=== PATIENT | female | born 1975 | race Caucasian/White ===

== ENCOUNTER 2020-01-24 19:56 | Emergency (ER) | payer MEDICARE, MEDICAID, SELFPAY ==
[2020-01-24 20:51] VITALS: BP 143/83; PULSE 76; RESP 16; TEMP 36.8; O2SAT 98; BMI 28.3
--- NOTE | 2020-01-24 21:36 | PC.NURSE ---
Pt ambulating from the waiting room into room 13. IV established, labs obtained and sent. Pt unable to provide UA at this time. Call mckeon within reach, continue to monitor. Awaiting primary MD sanchez.
[2020-01-24 21:42] LABS: MANUAL DIFF FLAG NO
[2020-01-24 21:48] LABS: Basophils Absolute Auto 0.1 X10*3/uL (0.0-0.2); Basophils Percent Auto 0.7 % (0-2); Eosinophils Absolute Auto 0.2 X10*3/uL (0.0-0.4); Hematocrit 41.1 % (37-47); Imm Gran Abs Auto 0.02 X10*3/uL (0.00-0.03); Imm Gran Pct Auto 0.2 % (0.0-0.4); Lymphocytes Absolute Auto 2.6 X10*3/uL (1.2-4.9); Lymphocytes Percent Auto 30.1 % (20-40); Mean Corpuscular HGB Conc 34.1 g/dl (31.0-35.0); Mean Corpuscular Volume 96.9 fL (80-98); Mean Platelet Volume 11.3 fL (9.4-12.3); Monocytes Absolute Auto 0.6 X10*3/uL (0.1-1.2); Monocytes Percent Auto 6.5 % (2-11); Neutrophils Absolute Auto 5.2 X10*3/uL (2.0-8.3); Neutrophils Percent Auto 60.5 % (45-73); Platelet Count 256 X10*3/uL (160-400); Red Blood Count 4.24 X10*6/uL (4.20-5.50); Red Cell Distribution Width 13.1 % (11.0-16.0); White Blood Count 8.7 X10*3/uL (4.8-10.8)
[2020-01-24 22:00] VITALS: BP 148/89; PULSE 70; RESP 15; O2SAT 98
[2020-01-24 22:12] LABS: Alanine Aminotransferase 14 U/L (0-31); Albumin Level 4.7 g/dL (3.5-5.0); Alkaline Phosphatase 80 U/L (39-117); Anion Gap 14 (12-20); Aspartate Amino Transferase 21 U/L (5-31); Blood Urea Nitrogen 11 mg/dL (9-16); Calcium 9.2 mg/dL (8.4-10.2); Carbon Dioxide 22 mmol/L (22-29); Chloride 105 mmol/L (96-108); Creatinine Clr Calc Pharmacy 60.6; Estimated Glomerular Filt Rate 54; Glucose Random 85 mg/dL (60-115); Lipase 35 U/L (8-78); Potassium 3.9 mmol/l (3.3-5.1); Sodium 137 mmol/L (135-145); Total Protein 7.9 g/dL (6.5-8.0)
--- NOTE | 2020-01-24 22:41 | ED.FEMALEGU ---
HPI - Female Genitourinary General Chief complaint: Urogenital-Female Stated complaint: flank pain Time Seen by Provider: 01/24/20 22:36 Source: patient Mode of arrival: ambulatory Limitations: no limitations History of Present Illness HPI Narrative: patient with chronic back pain and history of kidney stones comes here for pain in the right flank area since yesterday getting worse today with nausea patient feels his pain is slightly different than in the past radiating to her right hip similar to in the past when she had kidney stone, also noticed dark urine without any julian hematuria MD elicited complaint: dysuria Onset (ago): day(s) (1) Quality of pain: sharp Consistency: constant Vaginal discharge: none Urinary symptoms: Dysuria and Urgency Related Data Previous Rx's Medication Instructions Recorded cyclobenzaprine 10 mg PO Q8H #20 tab 01/25/20 diclofenac sodium 50 mg PO Q12H PRN #20 tab 01/25/20 Allergies Allergy/AdvReac Type Severity Reaction Status Date / Time acetaminophen [ACETAMINOPHEN] Allergy Unknown ITCHY Verified 01/24/20 20:50 aspirin [From PERCODAN] Allergy Unknown RASH Verified 01/24/20 20:50 ceftriaxone [CEFTRIAXONE] Allergy Unknown RASH Verified 01/24/20 20:50 Cephalosporins Allergy Unknown HIVES Verified 01/24/20 20:50 [CEPHALOSPORINS] fentanyl [FENTANYL] Allergy Unknown ANAPHYLAXIS Verified 01/24/20 20:50 hydromorphone [From DILAUDID] Allergy Unknown HIVES Verified 01/24/20 20:50 lorazepam [From ATIVAN] Allergy Unknown HEADAHCE Verified 01/24/20 20:50 morphine [MORPHINE] Allergy Unknown HIVES Verified 01/24/20 20:50 oxycodone [OXYCODONE] Allergy Unknown ITCHY Verified 01/24/20 20:50 penicillin G Allergy Unknown Itching Verified 01/24/20 20:50 Penicillins [PENICILLINS] Allergy Unknown SHORTNESS Verified 01/24/20 20:50 OF BREATH Percodan Allergy Unknown Itching Verified 01/24/20 20:50 prednisolone Allergy Unknown Itching Verified 01/24/20 20:50 prednisone [PREDNISONE] Allergy Unknown ANAPHYLAXIS Verified 01/24/20 20:50 Rocephin Allergy Unknown Itching Verified 01/24/20 20:50 cephalosporins Allergy Unknown Itching Uncoded 01/24/20 20:50 Review of Systems Review of Systems: REVIEW OF SYSTEMS: Pertinent positives and negatives are stated above in the history. GEN: no fevers, chills, fatigue HEENT: no nasal congestion, sore throat, ear pain NEURO: no headache, dizziness, focal weakness PULM: no cough, shortness of breath CV: no chest pain, palpitations, LE edema ABD: no abdominal pain, vomiting, diarrhea : no dysuria, urgency, frequency SKIN: no rash ROS otherwise negative x 10 [facility] Past Medical History Medical History Asthma Chronic fatigue Kidney stone Lupus Osteopenia Ovarian cyst Social History Social History Advance Directives: No Advance Directives Information Provided: No Physical Exam Vital Signs: Vital Signs: Last Vital Signs Temp 98.3 F 01/24/20 20:51 Pulse 70 01/24/20 22:00 Resp 15 01/24/20 22:00 BP 148/89 H 01/24/20 22:00 Pulse Ox 98 01/24/20 22:00 Body Mass Index 28.3 Appearance: Alert. Oriented X3. in moderate distress. Eyes: Pupils equal, round and reactive to light. ENT: Pharynx normal. Neck: Normal inspection. Neck supple. CVS: Normal heart rate and rhythm. Pulses normal. Respiratory: No respiratory distress. Breath sounds normal. Abdomen: Soft and nontender. right flank tenderness + no focal spinal tenderness Skin: Skin warm and dry. Normal skin color. Normal skin turgor. Extremities: No lower extremity edema. Good range of movement straight leg raising test negative bilateral Neuro: Oriented X 3. No motor deficit. No sensory deficit. Course Course Course Narrative: patient with chronic back pain been here multiple times in the past complaining of similar pain urine is negative for any hematuria or UTI labs are stable patient been sleeping since she came to the ER still complaining of pain will discharge her home on pain management. Patient requesting CT scan of the abdomen which came back to be negative for any obstructive nephropathy. Will discharge her home MDM - Female Genitourinary MDM Narrative Medical decision making narrative: nephrolithiasis, chronic back pain Differential Diagnosis Differential diagnosis: Likely urinary tract infection Medical Records Attestation: I reviewed the patient's medical records. Lab Data Attestation: I reviewed the patient's lab results. Result diagrams: 01/24/20 21:35 01/24/20 21:35 Labs: Lab Results 01/24/20 01/24/20 01/24/20 Range/Units 21:35 21:35 21:35 WBC 8.7 (4.8-10.8) X10*3/uL RBC 4.24 (4.20-5.50) X10*6/uL Hgb 14.0 (12.0-16.0) g/dl Hct 41.1 (37-47) % MCV 96.9 (80-98) fL MCH 33.0 (27.0-33.0) pg MCHC 34.1 (31.0-35.0) g/dl RDW 13.1 (11.0-16.0) % Plt Count 256 (160-400) X10*3/uL MPV 11.3 (9.4-12.3) fL Immature Gran % (Auto) 0.2 (0.0-0.4) % Neut % (Auto) 60.5 (45-73) % Lymph % (Auto) 30.1 (20-40) % [place] % (Auto) 6.5 (2-11) % Eos % (Auto) 2.0 (0-4) % Baso % (Auto) 0.7 (0-2) % Lymph # (Auto) 2.6 (1.2-4.9) X10*3/uL [place] # (Auto) 0.6 (0.1-1.2) X10*3/uL Eos # (Auto) 0.2 (0.0-0.4) X10*3/uL Baso # (Auto) 0.1 (0.0-0.2) X10*3/uL Abs Immat Gran (auto) 0.02 (0.00-0.03) X10*3/uL Absolute Neuts (auto) 5.2 (2.0-8.3) X10*3/uL Absolute Nucleated RBC 0.000 (0.0-0.012) X10*3/uL Nucleated RBC % (auto) 0.0 (0.0-0.2) /100WBC Hold Blue Top SEE NOTE Sodium 137 (135-145) mmol/L Potassium 3.9 (3.3-5.1) mmol/l Chloride 105 (96-108) mmol/L Carbon Dioxide 22 (22-29) mmol/L Anion Gap 14 (12-20) BUN 11 (9-16) mg/dL Creatinine 1.11 (0.5-1.4) mg/dL Estim Creat Clear Calc 60.6 Estimated GFR 54 Random Glucose 85 (60-115) mg/dL Calcium 9.2 (8.4-10.2) mg/dL Total Bilirubin 1.0 (0.0-1.0) mg/dL AST 21 (5-31) U/L ALT 14 (0-31) U/L Alkaline Phosphatase 80 (39-117) U/L Total Protein 7.9 (6.5-8.0) g/dL Albumin 4.7 (3.5-5.0) g/dL Lipase 35 (8-78) U/L Urine Color Urine Appearance Urine pH (5.0-8.0) Ur Specific [place] (1.005-1.025) Urine Protein (NEG-TRACE) MG/DL Urine Glucose (UA) (NEG) MG/DL Urine Ketones (NEG) MG/DL Urine Blood (NEG) Urine Nitrite (NEG) Ur Leukocyte Esterase (NEG) Urine RBC (0) /HPF Urine WBC (0-4) /HPF Ur Squamous Epith Cells /LPF Urine Bacteria /LPF Urine Mucus /LPF Urine Test (NEGATIVE) 01/24/20 Range/Units 22:35 WBC (4.8-10.8) X10*3/uL RBC (4.20-5.50) X10*6/uL Hgb (12.0-16.0) g/dl Hct (37-47) % MCV (80-98) fL MCH (27.0-33.0) pg MCHC (31.0-35.0) g/dl RDW (11.0-16.0) % Plt Count (160-400) X10*3/uL MPV (9.4-12.3) fL Immature Gran % (Auto) (0.0-0.4) % Neut % (Auto) (45-73) % Lymph % (Auto) (20-40) % Baca % (Auto) (2-11) % Eos % (Auto) (0-4) % Baso % (Auto) (0-2) % Lymph # (Auto) (1.2-4.9) X10*3/uL [place] # (Auto) (0.1-1.2) X10*3/uL Eos # (Auto) (0.0-0.4) X10*3/uL Baso # (Auto) (0.0-0.2) X10*3/uL Abs Immat Gran (auto) (0.00-0.03) X10*3/uL Absolute Neuts (auto) (2.0-8.3) X10*3/uL Absolute Nucleated RBC (0.0-0.012) X10*3/uL Nucleated RBC % (auto) (0.0-0.2) /100WBC Hold Blue Top Sodium (135-145) mmol/L Potassium (3.3-5.1) mmol/l Chloride (96-108) mmol/L Carbon Dioxide (22-29) mmol/L Anion Gap (12-20) BUN (9-16) mg/dL Creatinine (0.5-1.4) mg/dL Estim Creat Clear Calc Estimated GFR Random Glucose (60-115) mg/dL Calcium (8.4-10.2) mg/dL Total Bilirubin (0.0-1.0) mg/dL AST (5-31) U/L ALT (0-31) U/L Alkaline Phosphatase (39-117) U/L Total Protein (6.5-8.0) g/dL Albumin (3.5-5.0) g/dL Lipase (8-78) U/L Urine Color DARK YELLOW Urine Appearance HAZY Urine pH 6.5 (5.0-8.0) Ur Specific [place] >= 1.030 H (1.005-1.025) Urine Protein 1+ H (NEG-TRACE) MG/DL Urine Glucose (UA) NEG (NEG) MG/DL Urine Ketones 15 (NEG) MG/DL Urine Blood NEG (NEG) Urine Nitrite NEG (NEG) Ur Leukocyte Esterase NEG (NEG) Urine RBC 0 (0) /HPF Urine WBC 0 (0-4) /HPF Ur Squamous Epith Cells 3+ /LPF Urine Bacteria NONE /LPF Urine Mucus 3+ /LPF Urine Test NEGATIVE (NEGATIVE) Discharge Plan Discharge Clinical Impression: Back pain Qualifiers: Back pain location: low back pain Chronicity: chronic Back pain laterality: right Sciatica presence: without sciatica Qualified Code(s): M54.5 - Low back pain Patient Disposition: Home, Self-Care Instructions: Chronic Back Pain (DC) Additional Instructions: follow-up with primary care doctor/pain management Prescriptions: New diclofenac sodium 50 mg tablet,delayed release (DR/EC) 50 mg PO Q12H PRN (Reason: pain) Qty: 20 RF: 0 cyclobenzaprine 10 mg tablet 10 mg PO Q8H Qty: 20 RF: 0
[2020-01-24 22:42] LABS: Glucose Urine UA NEG (NEG); Leukocyte Esterase Urine NEG (NEG); Nitrite Urine NEG (NEG); PH 6.5 (5.0-8.0); Specific Gravity - Urine >= 1.030 (1.005-1.025); Urine Blood NEG (NEG); Urine Ketones 15 MG/DL (NEG); Urine Protein 1+ MG/DL (NEG-TRACE)
[2020-01-24 22:43] LABS: Appearance Urine HAZY; Color Urine DARK YELLOW
[2020-01-24] MEDS: 0.9 % Sodium Chloride 1,000 ML 999 ML IVCONT (22:53)
[2020-01-24] MEDS: diphenhydrAMINE HCL 50 MG/ML VIAL 25 MG IVPUSH (22:54)
[2020-01-24] MEDS: Ketorolac Tromethamine 30 MG/ML VIAL IVPUSH (22:54)
[2020-01-24] MEDS: Morphine Sulfate 4 MG/ML CARTRIDGE IVPUSH (22:55)
[2020-01-24 22:58] LABS: Mucus Urine 3+ /LPF; RBC Urine 0 /HPF (0); Squamous Epithelial Cell Urine 3+ /LPF; WBC Urine 0 /HPF (0-4)
[2020-01-24 22:59] LABS: UPreg QC Valid YES; Urine Pregnancy NEGATIVE (NEGATIVE)
--- NOTE | 2020-01-25 00:12 | CT_ITS ---
EXAMINATION: CT ABDOMEN AND PELVIS WITHOUT CONTRAST CLINICAL INFORMATION: r flank pain etiology? hx of stones . COMPARISON: No pertinent prior studies are available for comparison. TECHNIQUE: Multidetector volumetric imaging was performed from the superior aspect of the liver through the pubic symphysis without contrast per renal stone protocol. Sagittal and coronal reformatted images were obtained on the technologist workstation. This CT examination was performed using dose optimization techniques as appropriate, variously including the following: *Automated exposure control *Adjustment of mA and/or kV according to patient size (this includes techniques or standardized protocols for targeted exams where dose is matched to indication/reason for exam; i.e. extremities or head) *Use of iterative reconstruction technique DLP: 517 mGy-cm. FINDINGS: LUNG BASES: Linear scarring or atelectasis at the left greater than right bases. LIVER, GALLBLADDER, BILIARY TREE: The non-contrast liver is normal in size, shape, and attenuation. No focal hepatic lesion or biliary ductal dilatation is present. The gallbladder is unremarkable with no evidence of radiopaque gallstones, gallbladder wall thickening, or obvious pericholecystic inflammatory changes. PANCREAS: Unremarkable. SPLEEN: Unremarkable. ADRENAL GLANDS: Unremarkable. KIDNEYS AND URETERS: The kidneys are normal in size, shape, and attenuation. No hydronephrosis, hydroureter, or calculi seen. No perinephric stranding. BLADDER: Decompressed but otherwise unremarkable. No bladder calculi seen. GASTROINTESTINAL TRACT: Few scattered colonic diverticula are seen. There is no evidence however for diverticulitis. No pericolonic inflammatory changes or fluid. Normal-appearing appendix in the midline pelvis ABDOMINAL WALL: No significant hernia is appreciated. LYMPHOVASCULAR STRUCTURES: No lymphadenopathy. The aorta is unremarkable.. PELVIC VISCERA: Anteroverted uterus. Essure devices noted OSSEUS STRUCTURES: Status post fusion of L5/S1. No acute bony abnormality. CT/CT abdomen pelvis wo con IMPRESSION: I do not appreciate any renal or ureteric calculi. No obstructive changes seen. No acute intra-abdominal process.
--- NOTE | 2020-01-25 00:15 | PC.NURSE ---
patient refusing discharge without CT scan being completed first. aware, CT scan ordered.
--- NOTE | 2020-01-25 01:02 | PC.NURSE ---
this rn took patients iv out, pt refused to sign stating im going to [facility] this is fucking ridiculous i have chronic pain this is not chronic pain .
== END 2020-01-25 01:03 | disposition home or self-care (01) ==
PROVIDERS: Emergency Provider Internal Medicine; PCP Physician Assistant
DX: M54.5 Low back pain (principal); R30.0 Dysuria; R10.9 Unspecified abdominal pain; Z79.899 Other long term (current) drug therapy
CPT/HCPCS: 36415; 74176; 80053; 81001; 81025; 83690; 85025; 96361; 96374; 96375; 99284; J1200; J1885; J2270

== ENCOUNTER 2020-07-12 12:02 | Emergency (ER) | payer MEDICARE, MEDICAID, SELFPAY ==
[2020-07-12 12:05] VITALS: BP 123/82; PULSE 93; RESP 18; TEMP 36.6; O2SAT 98; BMI 28.3
[2020-07-12] MEDS: Lidocaine HCl 1 % MPF 5 ML VIAL SUBCUT ×2 (13:26)
--- NOTE | 2020-07-12 15:03 | ED.SKABFB ---
HPI - Skin/Abscess/Foreign Bdy General Chief complaint: Skin/Abscess/Foreign Body <JESSICA Ordaz - Last Filed: 07/16/20 15:06> Stated complaint: cyst <JESSICA Ordaz - Last Filed: 07/16/20 15:06> Time Seen by Provider: 07/12/20 13:20 <JESSICA Ordaz - Last Filed: 07/16/20 15:06> History of Present Illness HPI narrative: Patient complains of left-sided labial abscess that started 2 days ago no chills no abdominal pain, no dysuria <JESSICA Ordaz - Last Filed: 07/16/20 15:06> Related Data Home medications: Previous Rx's Medication Instructions Recorded cyclobenzaprine 10 mg PO Q8H #20 tab 01/25/20 diclofenac sodium 50 mg PO Q12H PRN #20 tab 01/25/20 acetaminophen-codeine 1 tab PO Q6H PRN #10 tab 07/12/20 doxycycline hyclate 100 mg PO BID 7 Days #14 cap 07/12/20 doxycycline monohydrate 100 mg PO BID 7 Days #14 tab 07/12/20 ibuprofen 600 mg PO Q6H PRN #14 tab 07/12/20 <JESSICA Ordaz - Last Filed: 07/16/20 15:06> Allergies/Adverse reactions: Allergies Allergy/AdvReac Type Severity Reaction Status Date / Time acetaminophen [ACETAMINOPHEN] Allergy Unknown ITCHY Verified 07/12/20 12:09 aspirin [From PERCODAN] Allergy Unknown RASH Verified 07/12/20 12:09 ceftriaxone [CEFTRIAXONE] Allergy Unknown RASH Verified 07/12/20 12:09 Cephalosporins Allergy Unknown HIVES Verified 07/12/20 12:09 [CEPHALOSPORINS] fentanyl [FENTANYL] Allergy Unknown ANAPHYLAXIS Verified 07/12/20 12:09 hydromorphone [From DILAUDID] Allergy Unknown HIVES Verified 07/12/20 12:09 lorazepam [From ATIVAN] Allergy Unknown HEADAHCE Verified 07/12/20 12:09 morphine [MORPHINE] Allergy Unknown HIVES Verified 07/12/20 12:09 oxycodone [OXYCODONE] Allergy Unknown ITCHY Verified 07/12/20 12:09 penicillin G Allergy Unknown Itching Verified 07/12/20 12:09 Penicillins [PENICILLINS] Allergy Unknown SHORTNESS Verified 07/12/20 12:09 OF BREATH Percodan Allergy Unknown Itching Verified 07/12/20 12:09 prednisolone Allergy Unknown Itching Verified 07/12/20 12:09 prednisone [PREDNISONE] Allergy Unknown ANAPHYLAXIS Verified 07/12/20 12:09 Rocephin Allergy Unknown Itching Verified 07/12/20 12:09 cephalosporins Allergy Unknown Itching Uncoded 01/24/20 20:50 <JESSICA Ordaz - Last Filed: 07/16/20 15:06> Review of Systems Review of Systems: Positive for left labial abscess Negatives are no fever no chills no dizziness no weakness no abdominal pain no nausea vomiting or diarrhea no dysuria and no other skin rash no joint pains <JESSICA Ordaz - Last Filed: 07/16/20 15:06> Yes all other systems are reviewed and are negative <JESSICA Ordaz - Last Filed: 07/16/20 15:06> PMFSH Past Medical History Source: nursing notes reviewed <JESSICA Ordaz - Last Filed: 07/16/20 15:06> Medical History: Medical History Asthma Chronic fatigue Encounter for Essure implantation Kidney stone Lupus Osteopenia Ovarian cyst <JESSICA Ordaz - Last Filed: 07/16/20 15:06> Surgical History: Surgical History H/O cervical spine surgery Hx of section <JESSICA Ordaz - Last Filed: 07/16/20 15:06> Physical Exam Vital Signs: Vital Signs: Last Vital Signs Temp 97.4 F 07/12/20 15:30 Pulse 58 07/12/20 15:30 Resp 18 07/12/20 15:30 BP 124/77 07/12/20 15:30 Pulse Ox 100 07/12/20 15:30 Body Mass Index 28.3 <JESSICA Ordaz - Last Filed: 07/16/20 15:06> Vital Signs: Last Vital Signs Temp 97.4 F 07/12/20 15:30 Pulse 58 07/12/20 15:30 Resp 18 07/12/20 15:30 BP 124/77 07/12/20 15:30 Pulse Ox 100 07/12/20 15:30 Body Mass Index 28.3 <Arnulfo Painting MD - Last Filed: 08/14/20 06:54> General appearance is no acute distress The head is normocephalic atraumatic Neck is supple Respiratory no distress B abdomen soft nontender Genital exam there is a left labial redness and induration, no significant surrounding erythema, no obvious fluctuance Extremities full range of motion x4 Skin no other rash <JESSICA Ordaz - Last Filed: 07/16/20 15:06> Course Course Course Narrative: Procedure note Left labial abscess is cleansed with Betadine Anesthesia is 6 cc of 1% lidocaine A small incision was made, a small amount of pus was discharged, probed with forceps and packing is placed Patient can follow up with breaker tender in 2-3 days and knows to return any time if worse <JESSICA Ordaz - Last Filed: 07/16/20 15:06> I have reviewed the chart <Arnulfo Painting MD - Last Filed: 08/14/20 06:54> Discharge Plan Discharge Clinical Impression: Abscess of labia <JESSICA Ordaz - Last Filed: 07/16/20 15:06> Patient Disposition: Home, Self-Care <JESSICA Ordaz - Last Filed: 07/16/20 15:06> Additional Instructions: Follow in 1-2 days with your director of revenue cycle management for re-evaluation of labial abscess, or return to the ER in 2 days for packing removal and wound check Return any time for worse pain and swelling, fever, any worse condition or any concerns <JESSICA Ordaz - Last Filed: 07/16/20 15:06> Prescriptions: New acetaminophen-codeine 300-60 mg tablet 1 tab PO Q6H PRN (Reason: pain) Qty: 10 RF: 0 doxycycline hyclate 100 mg capsule 100 mg PO BID 7 Days Qty: 14 RF: 0 ibuprofen 600 mg tablet 600 mg PO Q6H PRN (Reason: pain) Qty: 14 RF: 0 doxycycline monohydrate 100 mg tablet 100 mg PO BID 7 Days Qty: 14 RF: 0 No Action diclofenac sodium 50 mg tablet,delayed release (DR/EC) 50 mg PO Q12H PRN (Reason: pain) Qty: 20 RF: 0 cyclobenzaprine 10 mg tablet 10 mg PO Q8H Qty: 20 RF: 0 <JESSICA Ordaz - Last Filed: 07/16/20 15:06> Interventions: ED Discharge Assessment Last Done: 07/12/20 15:39 <JESSICA Ordaz - Last Filed: 07/16/20 15:06> Discharge Date/Time: 07/12/20 15:40 <JESSICA Ordaz - Last Filed: 07/16/20 15:06>
[2020-07-12 15:30] VITALS: BP 124/77; PULSE 58; RESP 18; TEMP 36.3; O2SAT 100
[2020-07-12] MEDS: Ibuprofen 600 MG TABLET PO (15:33)
== END 2020-07-12 15:40 | disposition home or self-care (01) ==
PROVIDERS: Emergency Provider Emergency Medicine; PCP Physician Assistant
DX: N76.4 Abscess of vulva (principal); Z79.899 Other long term (current) drug therapy
CPT/HCPCS: 56405; 99284

== ENCOUNTER 2020-07-19 09:18 | Outpatient (REF) | payer MEDICARE, MEDICAID, SELFPAY | END 2020-07-19 09:19 | disposition home or self-care (01) | LOC: HO.LAB 09:18 | PROVIDERS: Visit Provider Obstetrics & Gynecology | DX: N76.4 Abscess of vulva (principal) | CPT/HCPCS: 10060; 56405; 87071; 87205; 99212 ==

== ENCOUNTER 2021-02-20 07:13 | Outpatient (REF) | payer MEDICARE, MEDICAID, SELFPAY ==
--- NOTE | ~2021-02-20 | XR_ITS ---
EXAMINATION: XR WRIST, LEFT CLINICAL INFORMATION: Left wrist pain COMPARISON: None TECHNIQUE: PA, lateral, and oblique views of the left wrist. FINDINGS: Surgical changes across the first carpometacarpal joint. The bones and soft tissues about the wrist appear normal. The joint spaces appear normal. No erosions or abnormal soft tissue calcifications. XR/XR wrist LT min 3V IMPRESSION: Normal left wrist.
== END 2021-02-20 07:14 | disposition home or self-care (01) ==
LOC: HO.HOSX 07:13
PROVIDERS: Visit Provider Physician Assistant
DX: M65.4 Radial styloid tenosynovitis [de Quervain] (principal); G56.02 Carpal tunnel syndrome, left upper limb; M67.432 Ganglion, left wrist
CPT/HCPCS: 73110; 99202

== ENCOUNTER 2021-03-08 08:28 | Outpatient (REF) | payer MEDICARE, MEDICAID, SELFPAY ==
--- NOTE | ~2021-03-08 | MM_ITS ---
EXAMINATION: MM DIAGNOSTIC DIGITAL BREAST TOMOSYNTHESIS, BILATERAL US DIAGNOSTIC ULTRASOUND BREAST, BILATERAL CLINICAL INFORMATION: 45-year-old with bilateral breast tenderness and chronic bilateral milky discharge for years. History lupus. Benign ultrasound-guided left breast biopsy 10/29/2018. The lifetime risk of breast cancer based on the Tyrer-Cuzick Model is 15%. COMPARISON: Mammography: 10/29/2018, 10/08/2018, 09/30/2018 (baseline), ultrasound left breast 10/08/2018, ultrasound-guided biopsy left breast 10/29/2018. TECHNIQUE: Digital breast tomosynthesis is performed in both the craniocaudal and mediolateral oblique views along with computer-aided detection (CAD). Synthesized 2D images are generated from the tomosynthesis. Ultrasound of both breasts is targeted to the areas of clinical concern, right 11:00 through 4:00 position and left upper outer quadrant, retroareolar, and periareolar regions. Grayscale imaging and color Doppler are performed without and with harmonics. FINDINGS: Mammography: There are scattered areas of fibroglandular density (ACR BI-RADS breast composition Category b). Breast tissue composition borders on heterogeneously dense in the upper outer quadrants. Parenchymal pattern is similar to prior studies. There is no developing density or interval mass or architectural abnormality. No abnormal calcifications. There is incidental biopsy clip marker again seen left breast upper outer quadrant. There is no skin thickening or coarsening of the Butch's ligaments. Ultrasound: Bilateral breast ultrasound demonstrates no solid mass or architectural abnormality or focal duct ectasia. No skin thickening or edema tracking in soft tissue planes. Right breast has simple cyst 11:00 position 3 cm from nipple measuring 0.6 cm. Left breast has scattered small cysts 12:00 position 3 cm from nipple under 1 cm, two showing incidental avascular fine internal septations. No associated color flow. At time of visit, patient was able to demonstrate bilateral moderate milky nipple discharge with squeezing. Management: Results are discussed with the patient at time of visit. There are no acute inflammatory changes seen in either breast. No suspicious changes. Recommend endocrine evaluation for the chronic bilateral milky nipple discharge. MM/MM tomosynthesis diagnostic BI IMPRESSION: 1. No mammographic evidence of malignancy or inflammatory changes. 2. Ultrasound shows small bilateral cysts under 1 cm. ASSESSMENT: BI-RADS 2: Benign RECOMMENDATION: 1. Patient's bilateral breast pain should be managed based on clinical impression. Suggest endocrine evaluation for further assessment of the chronic bilateral milky nipple discharge. 2. Otherwise, routine annual screening mammography. This patient's information was entered into a reminder system with a target due date for their next mammogram.
== END 2021-03-08 08:29 | disposition home or self-care (01) ==
LOC: HO.MAMMO 08:28
PROVIDERS: PCP Physician Assistant; Visit Provider Nurse Practitioner Family
DX: O92.70 Unspecified disorders of lactation (principal); N64.4 Mastodynia; N64.59 Other signs and symptoms in breast
CPT/HCPCS: 76642; 77062; 77066

== ENCOUNTER 2021-03-17 09:39 | Emergency (ER) | payer MEDICARE, MEDICAID, SELFPAY ==
[2021-03-17 09:48] VITALS: BP 140/82; PULSE 92; O2SAT 99
== END 2021-03-17 11:31 | disposition left against medical advice (07) ==
PROVIDERS: Emergency Provider Emergency Medicine
DX: R51.9 Headache, unspecified (principal)

== ENCOUNTER 2021-04-02 14:22 | Outpatient (REF) | payer MEDICARE, MEDICAID, SELFPAY ==
[2021-04-02 15:01] LABS: Hematocrit 38.1 % (37.0-47.0); Hemoglobin 12.9 g/dl (12.0-16.0); Mean Corpuscular HGB Conc 33.9 g/dl (31.0-35.0); Mean Corpuscular Hemoglobin 33.1 pg (27.0-33.0); Mean Corpuscular Volume 97.7 fL (80.0-98.0); Mean Platelet Volume 11.3 fL (9.4-12.3); Platelet Count 233 X10*3/uL (160-400); Red Cell Distribution Width 12.6 % (11.0-16.0); White Blood Count 6.1 X10*3/uL (4.8-10.8)
[2021-04-02 15:22] LABS: Alanine Aminotransferase 12 U/L (0-31); Albumin Level 4.4 g/dL (3.5-5.0); Alkaline Phosphatase 80 U/L (39-117); Anion Gap 14 (12-20); Aspartate Amino Transferase 15 U/L (5-31); Bilirubin Direct 0.3 mg/dL (0.0-0.5); Bilirubin Total 0.9 mg/dL (0.0-1.0); Blood Urea Nitrogen 8 mg/dL (9-16); Calcium 9.5 mg/dL (8.4-10.2); Carbon Dioxide 20 mmol/L (22-29); Chloride 108 mmol/L (96-108); Estimated Glomerular Filt Rate > 60; Glucose Random 88 mg/dL (60-115); Potassium 4.1 mmol/L (3.3-5.1); Sodium 138 mmol/L (135-145); Total Protein 7.5 g/dL (6.5-8.0)
[2021-04-02 15:41] LABS: Thyroid Stimulating Hormone 2.19 uIU/mL (0.32-4.0)
[2021-04-02 15:44] LABS: HCG Quantitative < 2 mIU/mL; TSH reflex Free T4 2.04 uIU/mL (0.32-4.0)
[2021-04-03 08:26] LABS: Prolactin 9.8 ng/mL
[2021-04-05 13:11] LABS: Progesterone 2.6 ng/mL
[2021-04-07 22:06] LABS: Estradiol Free 0.68 pg/mL; Estradiol, Ultrasensitive 39 pg/mL
== END 2021-04-02 14:23 | disposition home or self-care (01) ==
LOC: HO.LAB 14:22
PROVIDERS: Absent Provider Nurse Practitioner Family; PCP Physician Assistant; Visit Provider Internal Medicine
DX: N64.3 Galactorrhea not associated with childbirth (principal)
CPT/HCPCS: 36415; 80048; 80076; 82670; 82681; 84144; 84146; 84443; 84702; 85027

== ENCOUNTER 2022-04-02 11:48 | Emergency (ER) | payer MEDICARE, MEDICAID, SELFPAY ==
--- NOTE | ~2022-04-02 | CT_ITS ---
EXAMINATION: CT HEAD WITHOUT CONTRAST CLINICAL INFORMATION: Status post fall COMPARISON: None TECHNIQUE: Contiguous axial imaging was performed from the skull base to vertex without intravenous administration of contrast. This CT examination was performed using dose optimization techniques as appropriate, variously including the following: *Automated exposure control *Adjustment of mA and/or kV according to patient size (this includes techniques or standardized protocols for targeted exams where dose is matched to indication/reason for exam; i.e. extremities or head) *Use of iterative reconstruction technique DLP: 1064 mGy-cm FINDINGS: There is no evidence of acute intracranial hemorrhage or territorial infarction. No abnormal mass effect or midline shift is seen. Ag to white matter differentiation is well preserved. No extra-axial fluid collections are identified. The ventricles are normal in size. There is no abnormal attenuation within the brain parenchyma. The osseous structures and soft tissues are normal. The mastoid air cells and visualized portions of the paranasal sinuses are well aerated. CT/CT cervical spine wo IV con IMPRESSION: No acute intracranial pathology. EXAMINATION: Noncontrast CT scan of the cervical spine. INDICATION: Status post fall COMPARISON: None. TECHNIQUE: Helical, multidetector axial images were obtained from the occiput to the upper thorax. Coronal and sagittal reformats of the cervical spine were provided for interpretation. DLP: 1064 mGy-cm FINDINGS: No acute fractures or dislocations of the cervical spine are seen. Reversal of normal cervical curvature centered at C5. Very slight grade 1 anterolisthesis of C4 on C5. Multilevel degenerative changes. Anatomic alignment and positioning of the vertebral bodies and posterior elements is noted. The atlantoaxial joint and craniovertebral articulations are normal without evidence of subluxation. There is no prevertebral soft tissue swelling. The thyroid gland and visualized portions of the lung apices and mediastinum are unremarkable. IMPRESSION: 1. No acute visible fracture or dislocation. 2. Reversal of normal cervical curvature centered at C5. 3. Very slight grade 1 anterolisthesis of C4 on C5. 4. Multilevel degenerative changes.
[2022-04-02 12:13] VITALS: BP 184/104; PULSE 90; RESP 18; TEMP 36.9; O2SAT 95; BMI 27.4
--- NOTE | 2022-04-02 12:13 | ED.SEIZURE ---
HPI - Seizure General Chief Complaint: Seizure <JESSICA Kenyon - Last Filed: 04/02/22 12:18> Stated Complaint: Seizure T-2 days/Not feeling well/Lightheaded <JESSICA Kenyon - Last Filed: 04/02/22 12:18> Time Seen by Provider: 04/02/22 13:25 <JESSICA Kenyon - Last Filed: 04/02/22 12:18> Source: patient <Demarco Matias MD - Last Filed: 04/02/22 16:34> Mode of arrival: ambulatory <Demarco Matias MD - Last Filed: 04/02/22 16:34> Limitations: no limitations <Demarco Matias MD - Last Filed: 04/02/22 16:34> History of Present Illness HPI Narrative: 46-year-old female who presents emergency department for evaluation of headache and neck pain after seizure and fall 3 days prior. Patient states that 3 days prior she got up from bed, she states that her legs started shaking and then she had a seizure. She states she woke up on the floor after an unknown period of time. She states that she does have a history of seizures but is not on any medications since she had adverse reactions to all the seizure medications that she tried. She states that since the fall she has been having pain on the right side of her head. She describes the pain is a constant pressure-like headache which is 8/10 at its worst. The pain is constant but does wax and wane in intensity. The pain seems to be better she lies down flat but is worse if she stands up. She is also complaining of neck pain. She points to her mid cervical spine when asked to localize the pain. She states this pain is worse if she pushes on her spine and she believes she feels us base over the area that is tender. She also states that her brain is not feeling right, she feels foggy is having difficulty thinking. The patient states that she has a history of lupus which is caused her to have degenerative spine disease, she has had multiple spinal surgeries. She also believes that her lupus is flaring up and she states that she does not take any medications for her lupus. Instead she exercises and when she feels bad she gets treated with IV fluids. Patient denied being ill in any way prior to her fall, she denied fever, chills, cough, chest pain, shortness of breath, lightheadedness or dizziness. She denies numbness, weakness or loss of bowel or bladder control. <Demarco Matias MD - Last Filed: 04/02/22 16:34> Related Data Home Medications: Previous Rx's Medication Instructions Recorded lidocaine 5 % topical patch 1 patch topical DAILY 30 days #30 10/16/21 ea acetaminophen 650 mg 650 mg PO Q12H 30 days #60 tabs 10/30/21 tablet,extended release albuterol sulfate 90 mcg/actuation 1 inh inhalation QID 30 days #8.5 11/18/21 aerosol inhaler (Ventolin HFA) grams cyclobenzaprine 10 mg tablet 10 mg PO BEDTIME 30 days #30 tabs 11/19/21 fluticasone propionate 110 1 puff inhalation BID 30 days #12 12/19/21 mcg/actuation HFA aerosol inhaler grams (Flovent HFA) acetaminophen 500 mg tablet 1,000 mg PO Q6H PRN fever or pain 04/02/22 (Tylenol Extra Strength) #20 tabs morphine 15 mg immediate release 15 mg PO Q4-6H PRN pain #14 tabs 04/02/22 tablet ondansetron 4 mg disintegrating 4 mg PO Q6-8H PRN nausea and 04/02/22 tablet vomiting #14 tabs <JESSICA Kenyon - Last Filed: 04/02/22 12:18> Allergies/Adverse Reactions: Allergies Allergy/AdvReac Type Severity Reaction Status Date / Time acetaminophen [ACETAMINOPHEN] Allergy Unknown ITCHY Verified 10/16/21 15:56 aspirin [From PERCODAN] Allergy Unknown RASH Verified 10/16/21 15:56 ceftriaxone [CEFTRIAXONE] Allergy Unknown RASH Verified 10/16/21 15:56 Cephalosporins Allergy Unknown HIVES Verified 10/16/21 15:56 [CEPHALOSPORINS] fentanyl [FENTANYL] Allergy Unknown ANAPHYLAXIS Verified 10/16/21 15:56 hydromorphone [From DILAUDID] Allergy Unknown HIVES Verified 10/16/21 15:56 lorazepam [From ATIVAN] Allergy Unknown HEADAHCE Verified 10/16/21 15:56 morphine [MORPHINE] Allergy Unknown HIVES Verified 10/16/21 15:56 oxycodone [OXYCODONE] Allergy Unknown ITCHY Verified 10/16/21 15:56 penicillin G Allergy Unknown Itching Verified 10/16/21 15:56 Penicillins [PENICILLINS] Allergy Unknown SHORTNESS Verified 10/16/21 15:56 OF BREATH Percodan Allergy Unknown Itching Verified 10/16/21 15:56 prednisolone Allergy Unknown Itching Verified 10/16/21 15:56 prednisone [PREDNISONE] Allergy Unknown ANAPHYLAXIS Verified 10/16/21 15:56 Rocephin Allergy Unknown Itching Verified 10/16/21 15:56 cephalosporins Allergy Unknown Itching Uncoded 10/16/21 15:42 <JESSICA Kenyon - Last Filed: 04/02/22 12:18> Review of Systems Review of Systems: Yes all other systems are reviewed and are negative <Demarco Matias MD - Last Filed: 04/02/22 16:34> [facility] Past Medical History [facility] Narrative: Social history: She smokes 3 cigarettes per day, she states she has cut back, she has smoked for 26 years. She denies alcohol use. She states she uses edible marijuana and smokes marijuana for her lupus and for pain. <Demarco Matias MD - Last Filed: 04/02/22 16:34> Medical History: Medical History Asthma Chronic fatigue Encounter for Essure implantation Kidney stone Lupus Osteopenia Ovarian cyst <JESSICA Kenyon - Last Filed: 04/02/22 12:18> Surgical History: Surgical History H/O cervical spine surgery Hx of section <JESSICA Kenyon - Last Filed: 04/02/22 12:18> Social History Social History: Social History Housing: Apartment Patient Tobacco Use Status: Current everyday Tobacco user Tobacco use type: Cigarette Cigarettes Per Day: 3 Smoked in Last 30 Days: No e-Cigarette/Vaping Use: Never Used Second Hand Smoke Exposure: No Use of substances other than those prescribed or required for medical reasons: No Advance Directives: No Advance Directives Information Provided: No Current occupational status: disabled Current occupation: rt handed Cognitive needs: No Hearing needs: No Vision needs: No <JESSICA Kenyon - Last Filed: 04/02/22 12:18> Physical Exam Vital Signs: Vital Signs: Last Vital Signs Temp 97.3 F 04/02/22 14:42 Pulse 55 04/02/22 14:42 Resp 16 04/02/22 14:42 BP 94/54 L 04/02/22 14:42 Pulse Ox 100 04/02/22 14:42 O2 Del Method 04/02/22 14:42 BMI result Body Mass Index 27.4 <JESSICA Kenyon - Last Filed: 04/02/22 12:18> Vital Signs: Last Vital Signs Temp 97.3 F 04/02/22 14:42 Pulse 55 04/02/22 14:42 Resp 16 04/02/22 14:42 BP 94/54 L 04/02/22 14:42 Pulse Ox 100 04/02/22 14:42 O2 Del Method 04/02/22 14:42 BMI result Body Mass Index 27.4 <Demarco Matias MD - Last Filed: 04/02/22 16:34> Const: Other: Awake, alert, female patient, very pleasant cooperative, does not appear to be in distress, answers all questions appropriately. <Demarco Matias MD - Last Filed: 04/02/22 16:34> Orientation/consciousness: oriented to person and oriented to place <Demarco Matias MD - Last Filed: 04/02/22 16:34> HEENT: Head: Yes other (Tenderness with palpation of the right parietal occipital area of her scalp) <Demarco Matias MD - Last Filed: 04/02/22 16:34> Ears: external ears normal <Demarco Matias MD - Last Filed: 04/02/22 16:34> General nose exam: Normal external nose present <Demarco Matias MD - Last Filed: 04/02/22 16:34> Face and sinus: Yes normal facial exam <Demarco Matias MD - Last Filed: 04/02/22 16:34> Mouth: Normal oral and palatal mucosa present <Demarco Matias MD - Last Filed: 04/02/22 16:34> Throat: Yes posterior oropharynx normal <MD Mitchell Olivares Last Filed: 04/02/22 16:34> Eyes: General: appearance normal, both eyes and all related structures <Demarco Matias MD - Last Filed: 04/02/22 16:34> Pupils: Equal, round and reactive pupils present <Demarco Matias MD - Last Filed: 04/02/22 16:34> Neck: Other: C-spine tenderness <MD Mitchell Olivares Last Filed: 04/02/22 16:34> Chest: Chest palpation & inspection: normal inspection of the chest and normal palpation of entire chest wall <Demarco Matias MD - Last Filed: 04/02/22 16:34> Resp: Effort & Inspection: normal respiratory effort and able to speak in complete sentences <Demarco Matias MD - Last Filed: 04/02/22 16:34> Auscultation: clear to auscultation bilaterally <MD Mitchell Olivares Last Filed: 04/02/22 16:34> Cardio: Rate: regular rate <Demarco Matias MD - Last Filed: 04/02/22 16:34> Rhythm: regular rhythm <MD Mitchell Olivares Last Filed: 04/02/22 16:34> Heart sounds: S1 normal heart sound present, S2 normal heart sound present and no murmurs <Demarco Matias MD - Last Filed: 04/02/22 16:34> GI: Inspection: Yes normal to inspection <MD Mitchell Olivares Last Filed: 04/02/22 16:34> Palpation (GI): Soft to palpation, nontender and no guarding <MD Mitchell Olivares Last Filed: 04/02/22 16:34> Auscultation: normal bowel sounds <MD Mitchell Olivares Last Filed: 04/02/22 16:34> : General: Yes no CVA tenderness <Demarco Matias MD - Last Filed: 04/02/22 16:34> Back/Spine/Pelvis: Back: no CVA tenderness <Demarco Matias MD - Last Filed: 04/02/22 16:34> Skin: General skin exam: no rashes or lesions noted <Demarco Matias MD - Last Filed: 04/02/22 16:34> Neuro: General: oriented to person and oriented to place <Demarco Matias MD - Last Filed: 04/02/22 16:34> Cranial nerves: Yes CN's II-XII intact bilaterally and Yes Equal, round and reactive pupils present <Demarco Matias MD - Last Filed: 04/02/22 16:34> Cognition (Neuro): normal cognition <Demarco Matias MD - Last Filed: 04/02/22 16:34> Motor exam (neuro): 5/5 motor strength present throughout <Demarco Matias MD - Last Filed: 04/02/22 16:34> Extrem: General: Yes normal to inspection <Demarco Matias MD - Last Filed: 04/02/22 16:34> Psych: Appearance: grossly normal <Demarco Matias MD - Last Filed: 04/02/22 16:34> Speech and movement: Normal speech and movement present <Demarco Matias MD - Last Filed: 04/02/22 16:34> Affect: normal affect <Demarco Matias MD - Last Filed: 04/02/22 16:34> Attitude: cooperative <Demarco Matias MD - Last Filed: 04/02/22 16:34> Thought process: Normal thought process present <Demarco Matias MD - Last Filed: 04/02/22 16:34> Thought content: Normal thought content present <Demarco Matias MD - Last Filed: 04/02/22 16:34> Course Course Course Narrative: RME - 46 yo female with history of focal seizures (last was 10 years ago), lupus, chronic pain, asthma, depression, hx cervical spinal fusion who presents to the ER for evaluation after she had a focal seizure with bilateral LE shaking 2 days ago resulting in a fall with head strike. Has had grogginess, lethargy, neck pain and feeling off since, inability to focus. <JESSICA Kenyon - Last Filed: 04/02/22 12:18> Medications Administered Discontinued Medications Generic Name Dose Route Start Last Admin Trade Name Freq PRN Reason Stop Dose Admin Diphenhydramine HCl 50 mg 04/02/22 16:10 04/02/22 16:16 Diphenhydramine Hcl 50 Mg/Ml Vial IVPUSH 04/02/22 16:11 50 mg ONCE ONE Administration Sodium Chloride 1,000 mls @ 999 mls/hr 04/02/22 13:59 04/02/22 14:58 Ns IV 04/02/22 14:59 Infused .Q1H1M STA Infusion Morphine Sulfate 4 mg 04/02/22 16:10 04/02/22 16:16 Morphine Sulfate 4 Mg/Ml Cartridge IVPUSH 04/02/22 16:11 4 mg ONCE STA Administration Protocol Ondansetron HCl 4 mg 04/02/22 16:10 04/02/22 16:16 Ondansetron Hcl 4 Mg/2 Ml Vial IVPUSH 04/02/22 16:11 4 mg ONCE ONE Administration <JESSICA Kenyon - Last Filed: 04/02/22 12:18> Medications Administered Discontinued Medications Generic Name Dose Route Start Last Admin Trade Name Freq PRN Reason Stop Dose Admin Diphenhydramine HCl 50 mg 04/02/22 16:10 04/02/22 16:16 Diphenhydramine Hcl 50 Mg/Ml Vial IVPUSH 04/02/22 16:11 50 mg ONCE ONE Administration Sodium Chloride 1,000 mls @ 999 mls/hr 04/02/22 13:59 04/02/22 14:58 Ns IV 04/02/22 14:59 Infused .Q1H1M STA Infusion Morphine Sulfate 4 mg 04/02/22 16:10 04/02/22 16:16 Morphine Sulfate 4 Mg/Ml Cartridge IVPUSH 04/02/22 16:11 4 mg ONCE STA Administration Protocol Ondansetron HCl 4 mg 04/02/22 16:10 04/02/22 16:16 Ondansetron Hcl 4 Mg/2 Ml Vial IVPUSH 04/02/22 16:11 4 mg ONCE ONE Administration <Demarco Matias MD - Last Filed: 04/02/22 16:34> Medical Decision Making Medical Decision Making MDM Narrative: 46-year-old female with history of lupus, asthma, seizure disorder who presents emergency department for evaluation of a seizure that occurred 3 days causing her to fall and strike her head. Since the fall she has been having right-sided headache and neck pain. Her headaches have been constant, waxing waning intensity, there improved she lies down flat and worse if she stands up. She is also having cervical spine pain and she states that is tender when she pushes on her cervical spine. Patient has had no appetite is only been drinking fluid over the past several days. Vital signs initial blood pressure was elevated 184/104 but repeat blood pressure improved to 130/75 without treatment, vital signs were otherwise unremarkable. Patient's physical examination did reveal right-sided scalp tenderness as well as cervical spine tenderness with a normal neurologic exam. Patient had a rapid medical exam at triage on the following tests were ordered: CBC, BMP, liver panel, magnesium, COVID-19, influenza, RSV, CT scan of the head without contrast, CT scan of the cervical spine without contrast. I did order normal saline IV x1 L. 1409: Laboratory evaluation is interpreted by me as follows: CBC was normal. BMP was normal except for low glucose of 56, this is most likely caused by her not use since her head injury, I do not think it is related to his seizure 3 days prior. Liver tests were normal. COVID-19, influenza and RSV were negative. 1620: The patient's CT scan of her head and neck was unremarkable pain. Patient is still having significant pain and she states she can not take morphine is lungs was given with Benadryl. Therefore I ordered morphine 4 mg IV Benadryl 50 mg IV. She is also treated with Zofran 4 mg IV. The patient will be discharged home. I did discuss the possibility of a dural tear and a spinal headache with her as well. Patient is going to take Tylenol and aspirin for her pain. For pain not relieved by these medications she was prescribed morphine. She is also prescribed Zofran ODT. She was given printed and verbal instructions and discharged home. <Demarco Matias MD - Last Filed: 04/02/22 16:34> Differential Diagnosis Differential Diagnoses: The differential diagnosis associated with the presentation includes <Demarco Matias MD - Last Filed: 04/02/22 16:34> Differential includes was not limited to skull fracture, intracranial bleed, concussion, cervical fracture, cervical sprain, spinal dural tear <Demarco Matias MD - Last Filed: 04/02/22 16:34> Lab Data MDM Lab Attestation statement: I reviewed the patient's lab results. <Demarco Matias MD - Last Filed: 04/02/22 16:34> Please see the MDM from my discussion of the labs. <Demarco Matias MD - Last Filed: 04/02/22 16:34> Result Diagrams: 04/02/22 12:46 04/02/22 12:46 <JESSICA Kenyon - Last Filed: 04/02/22 12:18> Labs: Lab Results 04/02/22 04/02/22 04/02/22 Range/Units 12:46 12:46 12:46 WBC 5.9 (4.8-10.8) X10*3/uL RBC 4.00 L (4.20-5.50) X10*6/uL Hgb 13.2 (12.0-16.0) g/dl Hct 39.0 (37.0-47.0) % MCV 97.5 (80.0-98.0) fL MCH 33.0 (27.0-33.0) pg MCHC 33.8 (31.0-35.0) g/dl RDW 12.8 (11.0-16.0) % Plt Count 250 (160-400) X10*3/uL MPV 10.3 (9.4-12.3) fL Immature Gran % (Auto) 0.3 (0.0-0.4) % Neut % (Auto) 61.0 (45-73) % Lymph % (Auto) 29.6 (20-40) % [place] % (Auto) 6.9 (2-11) % Eos % (Auto) 1.2 (0-4) % Baso % (Auto) 1.0 (0-2) % Lymph # (Auto) 1.8 (1.2-4.9) X10*3/uL [place] # (Auto) 0.4 (0.1-1.2) X10*3/uL Eos # (Auto) 0.1 (0.0-0.4) X10*3/uL Baso # (Auto) 0.1 (0.0-0.2) X10*3/uL Abs Immat Gran (auto) 0.02 (0.00-0.03) X10*3/uL Absolute Neuts (auto) 3.6 (2.0-8.3) x10*3/uL Absolute Nucleated RBC 0.000 (0.0-0.012) X10*3/uL Nucleated RBC % (auto) 0.0 (0.0-0.2) /100WBC Sodium 139 (135-145) mmol/L Potassium 4.0 (3.3-5.1) mmol/L Chloride 108 (96-108) mmol/L Carbon Dioxide 24 (22-29) mmol/L Anion Gap 11 L (12-20) BUN 8 L (9-16) mg/dL Creatinine 0.82 (0.5-1.4) mg/dL Estim Creat Clear Calc 79.1 Estimated GFR > 60 POC Glucose (60-115) mg/dL Random Glucose 56 L* (60-115) mg/dL Calcium 9.3 (8.4-10.2) mg/dL Magnesium 2.0 (1.6-2.6) mg/dL Total Bilirubin 0.9 (0.0-1.0) mg/dL Direct Bilirubin 0.3 (0.0-0.5) mg/dL AST 14 (5-31) U/L ALT 13 (0-31) U/L Alkaline Phosphatase 78 (39-117) U/L Total Protein 6.9 (6.5-8.0) g/dL Albumin 4.2 (3.5-5.0) g/dL Urine Color Urine Appearance Urine pH (5.0-9.0) Ur Specific [place] (1.005-1.025) Urine Protein (Neg-Trace) mg/dL Urine Glucose (UA) (Negative) mg/dL Urine Ketones (Negative) mg/dL Urine Blood (Negative) Urine Nitrite (Negative) Ur Leukocyte Esterase (Negative) Urine RBC (0-2) /HPF Urine WBC (0-5) /HPF Ur Squamous Epith Cells (0-2) /HPF Urine Bacteria (None Seen) Hyaline Casts (0-2) /LPF Influenza Type A (PCR) NEGATIVE (Negative) Influenza Type B (PCR) NEGATIVE (Negative) RSV RNA Qual (PCR) NEGATIVE (Negative) SARS-CoV-2 RNA (RT-PCR) NEGATIVE (Negative) 04/02/22 04/02/22 Range/Units 14:34 14:37 WBC (4.8-10.8) X10*3/uL RBC (4.20-5.50) X10*6/uL Hgb (12.0-16.0) g/dl Hct (37.0-47.0) % MCV (80.0-98.0) fL MCH (27.0-33.0) pg MCHC (31.0-35.0) g/dl RDW (11.0-16.0) % Plt Count (160-400) X10*3/uL MPV (9.4-12.3) fL Immature Gran % (Auto) (0.0-0.4) % Neut % (Auto) (45-73) % Lymph % (Auto) (20-40) % [place] % (Auto) (2-11) % Eos % (Auto) (0-4) % Baso % (Auto) (0-2) % Lymph # (Auto) (1.2-4.9) X10*3/uL [place] # (Auto) (0.1-1.2) X10*3/uL Eos # (Auto) (0.0-0.4) X10*3/uL Baso # (Auto) (0.0-0.2) X10*3/uL Abs Immat Gran (auto) (0.00-0.03) X10*3/uL Absolute Neuts (auto) (2.0-8.3) x10*3/uL Absolute Nucleated RBC (0.0-0.012) X10*3/uL Nucleated RBC % (auto) (0.0-0.2) /100WBC Sodium (135-145) mmol/L Potassium (3.3-5.1) mmol/L Chloride (96-108) mmol/L Carbon Dioxide (22-29) mmol/L Anion Gap (12-20) BUN (9-16) mg/dL Creatinine (0.5-1.4) mg/dL Estim Creat Clear Calc Estimated GFR POC Glucose 106 (60-115) mg/dL Random Glucose (60-115) mg/dL Calcium (8.4-10.2) mg/dL Magnesium (1.6-2.6) mg/dL Total Bilirubin (0.0-1.0) mg/dL Direct Bilirubin (0.0-0.5) mg/dL AST (5-31) U/L ALT (0-31) U/L Alkaline Phosphatase (39-117) U/L Total Protein (6.5-8.0) g/dL Albumin (3.5-5.0) g/dL Urine Color Yellow Urine Appearance Clear Urine pH 7.0 (5.0-9.0) Ur Specific [place] 1.010 (1.005-1.025) Urine Protein Negative (Neg-Trace) mg/dL Urine Glucose (UA) Negative (Negative) mg/dL Urine Ketones Negative (Negative) mg/dL Urine Blood Negative (Negative) Urine Nitrite Negative (Negative) Ur Leukocyte Esterase Small (1+) H (Negative) Urine RBC 0-2 (0-2) /HPF Urine WBC 6-10 H (0-5) /HPF Ur Squamous Epith Cells 6-10 (0-2) /HPF Urine Bacteria None Seen (None Seen) Hyaline Casts 0-2 (0-2) /LPF Influenza Type A (PCR) (Negative) Influenza Type B (PCR) (Negative) RSV RNA Qual (PCR) (Negative) SARS-CoV-2 RNA (RT-PCR) (Negative) <JESSICA Kenyon - Last Filed: 04/02/22 12:18> Lab Results 04/02/22 04/02/22 04/02/22 Range/Units 12:46 12:46 12:46 WBC 5.9 (4.8-10.8) X10*3/uL RBC 4.00 L (4.20-5.50) X10*6/uL Hgb 13.2 (12.0-16.0) g/dl Hct 39.0 (37.0-47.0) % MCV 97.5 (80.0-98.0) fL MCH 33.0 (27.0-33.0) pg MCHC 33.8 (31.0-35.0) g/dl RDW 12.8 (11.0-16.0) % Plt Count 250 (160-400) X10*3/uL MPV 10.3 (9.4-12.3) fL Immature Gran % (Auto) 0.3 (0.0-0.4) % Neut % (Auto) 61.0 (45-73) % Lymph % (Auto) 29.6 (20-40) % [place] % (Auto) 6.9 (2-11) % Eos % (Auto) 1.2 (0-4) % Baso % (Auto) 1.0 (0-2) % Lymph # (Auto) 1.8 (1.2-4.9) X10*3/uL [place] # (Auto) 0.4 (0.1-1.2) X10*3/uL Eos # (Auto) 0.1 (0.0-0.4) X10*3/uL Baso # (Auto) 0.1 (0.0-0.2) X10*3/uL Abs Immat Gran (auto) 0.02 (0.00-0.03) X10*3/uL Absolute Neuts (auto) 3.6 (2.0-8.3) x10*3/uL Absolute Nucleated RBC 0.000 (0.0-0.012) X10*3/uL Nucleated RBC % (auto) 0.0 (0.0-0.2) /100WBC Sodium 139 (135-145) mmol/L Potassium 4.0 (3.3-5.1) mmol/L Chloride 108 (96-108) mmol/L Carbon Dioxide 24 (22-29) mmol/L Anion Gap 11 L (12-20) BUN 8 L (9-16) mg/dL Creatinine 0.82 (0.5-1.4) mg/dL Estim Creat Clear Calc 79.1 Estimated GFR > 60 POC Glucose (60-115) mg/dL Random Glucose 56 L* (60-115) mg/dL Calcium 9.3 (8.4-10.2) mg/dL Magnesium 2.0 (1.6-2.6) mg/dL Total Bilirubin 0.9 (0.0-1.0) mg/dL Direct Bilirubin 0.3 (0.0-0.5) mg/dL AST 14 (5-31) U/L ALT 13 (0-31) U/L Alkaline Phosphatase 78 (39-117) U/L Total Protein 6.9 (6.5-8.0) g/dL Albumin 4.2 (3.5-5.0) g/dL Urine Color Urine Appearance Urine pH (5.0-9.0) Ur Specific [place] (1.005-1.025) Urine Protein (Neg-Trace) mg/dL Urine Glucose (UA) (Negative) mg/dL Urine Ketones (Negative) mg/dL Urine Blood (Negative) Urine Nitrite (Negative) Ur Leukocyte Esterase (Negative) Urine RBC (0-2) /HPF Urine WBC (0-5) /HPF Ur Squamous Epith Cells (0-2) /HPF Urine Bacteria (None Seen) Hyaline Casts (0-2) /LPF Influenza Type A (PCR) NEGATIVE (Negative) Influenza Type B (PCR) NEGATIVE (Negative) RSV RNA Qual (PCR) NEGATIVE (Negative) SARS-CoV-2 RNA (RT-PCR) NEGATIVE (Negative) 04/02/22 04/02/22 Range/Units 14:34 14:37 WBC (4.8-10.8) X10*3/uL RBC (4.20-5.50) X10*6/uL Hgb (12.0-16.0) g/dl Hct (37.0-47.0) % MCV (80.0-98.0) fL MCH (27.0-33.0) pg MCHC (31.0-35.0) g/dl RDW (11.0-16.0) % Plt Count (160-400) X10*3/uL MPV (9.4-12.3) fL Immature Gran % (Auto) (0.0-0.4) % Neut % (Auto) (45-73) % Lymph % (Auto) (20-40) % [place] % (Auto) (2-11) % Eos % (Auto) (0-4) % Baso % (Auto) (0-2) % Lymph # (Auto) (1.2-4.9) X10*3/uL [place] # (Auto) (0.1-1.2) X10*3/uL Eos # (Auto) (0.0-0.4) X10*3/uL Baso # (Auto) (0.0-0.2) X10*3/uL Abs Immat Gran (auto) (0.00-0.03) X10*3/uL Absolute Neuts (auto) (2.0-8.3) x10*3/uL Absolute Nucleated RBC (0.0-0.012) X10*3/uL Nucleated RBC % (auto) (0.0-0.2) /100WBC Sodium (135-145) mmol/L Potassium (3.3-5.1) mmol/L Chloride (96-108) mmol/L Carbon Dioxide (22-29) mmol/L Anion Gap (12-20) BUN (9-16) mg/dL Creatinine (0.5-1.4) mg/dL Estim Creat Clear Calc Estimated GFR POC Glucose 106 (60-115) mg/dL Random Glucose (60-115) mg/dL Calcium (8.4-10.2) mg/dL Magnesium (1.6-2.6) mg/dL Total Bilirubin (0.0-1.0) mg/dL Direct Bilirubin (0.0-0.5) mg/dL AST (5-31) U/L ALT (0-31) U/L Alkaline Phosphatase (39-117) U/L Total Protein (6.5-8.0) g/dL Albumin (3.5-5.0) g/dL Urine Color Yellow Urine Appearance Clear Urine pH 7.0 (5.0-9.0) Ur Specific [place] 1.010 (1.005-1.025) Urine Protein Negative (Neg-Trace) mg/dL Urine Glucose (UA) Negative (Negative) mg/dL Urine Ketones Negative (Negative) mg/dL Urine Blood Negative (Negative) Urine Nitrite Negative (Negative) Ur Leukocyte Esterase Small (1+) H (Negative) Urine RBC 0-2 (0-2) /HPF Urine WBC 6-10 H (0-5) /HPF Ur Squamous Epith Cells 6-10 (0-2) /HPF Urine Bacteria None Seen (None Seen) Hyaline Casts 0-2 (0-2) /LPF Influenza Type A (PCR) (Negative) Influenza Type B (PCR) (Negative) RSV RNA Qual (PCR) (Negative) SARS-CoV-2 RNA (RT-PCR) (Negative) <Demarco Matias MD - Last Filed: 04/02/22 16:34> Radiology Impression Discussion of test interpretation with radiology: I have reviewed the radiologist's reading. <Demarco Matias MD - Last Filed: 04/02/22 16:34> Radiologist Impression: EXAMINATION: Noncontrast CT scan of the cervical spine. IMPRESSION: 1. No acute visible fracture or dislocation. 2. Reversal of normal cervical curvature centered at C5. 3. Very slight grade 1 anterolisthesis of C4 on C5. 4. Multilevel degenerative changes. EXAMINATION: CT HEAD WITHOUT CONTRAST IMPRESSION: 1. No acute visible fracture or dislocation. 2. Reversal of normal cervical curvature centered at C5. 3. Very slight grade 1 anterolisthesis of C4 on C5. 4. Multilevel degenerative changes. Dictated By:Sheryl Grigsby MDSigned By:<Electronically signed by Sheryl Grigsby MD in [place]>04/02/22 1508 <Demarco Matias MD - Last Filed: 04/02/22 16:34> Independent Historian Clinical information obtained from an independent historian. History obtained from or confirmed by: Other (Daughter) <Demarco Matias MD - Last Filed: 04/02/22 16:34> External Record Review External record reviewed: Outside ED record <Demarco Matias MD - Last Filed: 04/02/22 16:34> [place] patient prescription monitoring program was reviewed, patient had 2 prescriptions (with gabapentin and Tylenol with codeine) in the past 2 years. <Demarco Matias MD - Last Filed: 04/02/22 16:34> Discharge Plan Discharge Clinical Impression: CHI (closed head injury) Qualifiers: Encounter type: initial encounter Qualified Code(s): S09.90XA - Unspecified injury of head, initial encounter Concussion Qualifiers: Encounter type: initial encounter Loss of consciousness presence/duration: with LOC of unspecified duration Qualified Code(s): S06.0X9A - Concussion with loss of consciousness of unspecified duration, initial encounter Acute neck sprain Qualifiers: Encounter type: initial encounter Qualified Code(s): S13.9XXA - Sprain of joints and ligaments of unspecified parts of neck, initial encounter <JESSICA Kenyon - Last Filed: 04/02/22 12:18> Patient Disposition: Home, Self-Care <JESSICA Kenyon - Last Filed: 04/02/22 12:18> Instructions: Post Concussion Syndrome (ED) <JESSICA Kenyon - Last Filed: 04/02/22 12:18> Additional Instructions: Your blood work was normal except for slightly low glucose of 56, this is probably related to not eating very much food over the last several days. The CT scan of your head revealed no skull fracture or bleeding in the brain which is reassuring The CT scan of your neck revealed no fracture which is again reassuring. Your symptoms are most likely caused by a concussion from striking your head on the floor. Sometimes, when you injury your head and neck, you can tear the covering of the spinal cord/brain (the dura) and this can cause spinal fluid to leak out of your brain or out of your spinal canal. This can lead to headaches that are better lying down and worse when standing up. This is called a spinal headache. The treatment for a spinal headache is to increase your fluid intake, increase your caffeine intake, lie down and rest, take pain medications. The tear often heels by itself however if your symptoms persist for 2 weeks then you may need MRIs of your brain and spine to to see if there is a spinal fluid leak. Take aspirin 325 mg, 1 pill 3 times a day as needed for pain, take this with food. Take Tylenol (acetaminophen) 2 pills every 4-6 hours as needed for pain. For pain not relieved by aspirin or Tylenol take morphine 15 mg pills, 1 pill every 4 hours as needed for pain. This medication will make you sleepy, do not drive or work while taking this medication. When you take morphine take Benadryl 25 mg pills, 2 pills (50 mg) Morphine is a narcotic medication and can be addicting. If you are concerned about addiction you can ask the pharmacist for less pills or do not get this prescription filled. Take Zofran ODT 4 mg pills, 1 pill dissolved in your mouth every 8 hours as needed for nausea and vomiting. Follow-up with your doctor in 2 days. Please return to the emergency department if your symptoms get worse or if you develop any symptoms that are concerning to you. <JESSICA Kenyon - Last Filed: 04/02/22 12:18> Prescriptions: New acetaminophen [Tylenol Extra Strength] 500 mg tablet 1,000 mg PO Q6H PRN (Reason: fever or pain) Qty: 20 0RF morphine 15 mg tablet 15 mg PO Q4-6H PRN (Reason: pain) Qty: 14 0RF Rx Instructions: Patient may request partial fill; Partial Fill upon patient request. ondansetron 4 mg tablet,disintegrating 4 mg PO Q6-8H PRN (Reason: nausea and vomiting) Qty: 14 0RF No Action acetaminophen 650 mg tablet extended release 650 mg PO Q12H 30 Days Qty: 60 0RF albuterol sulfate [Ventolin HFA] 90 mcg/actuation HFA aerosol inhaler 1 inh inhalation QID 30 Days Qty: 8.5 0RF cyclobenzaprine 10 mg tablet 10 mg PO BEDTIME 30 Days Qty: 30 0RF fluticasone propionate [Flovent HFA] 110 mcg/actuation HFA aerosol inhaler 1 puff inhalation BID 30 Days Qty: 12 0RF lidocaine 5 % adhesive patch,medicated 1 patch topical DAILY 30 Days Qty: 30 2RF Rx Instructions: leave on most painful area for up to 12 hrs <JESSICA Kenyon - Last Filed: 04/02/22 12:18>
--- NOTE | 2022-04-02 12:15 | ECG_ITS ---
Test Reason : SOB Blood Pressure : / mmHG Vent. Rate : 076 BPM Atrial Rate : 076 BPM P-R Int : 128 ms QRS Dur : 080 ms QT Int : 336 ms P-R-T Axes : 057 023 038 degrees QTc Int : 378 ms Normal sinus rhythm with sinus arrhythmia Normal ECG No previous ECGs available Referred By: Mackenzie aDlton Electronically Signed By:ROSAMARIA BACK
[2022-04-02 12:51] LABS: MANUAL DIFF FLAG NO
[2022-04-02 12:52] LABS: Basophils Absolute Auto 0.1 X10*3/uL (0.0-0.2); Eosinophils Absolute Auto 0.1 X10*3/uL (0.0-0.4); Eosinophils Percent Auto 1.2 % (0-4); Hemoglobin 13.2 g/dl (12.0-16.0); Imm Gran Abs Auto 0.02 X10*3/uL (0.00-0.03); Imm Gran Pct Auto 0.3 % (0.0-0.4); Lymphocytes Absolute Auto 1.8 X10*3/uL (1.2-4.9); Lymphocytes Percent Auto 29.6 % (20-40); Mean Corpuscular HGB Conc 33.8 g/dl (31.0-35.0); Mean Corpuscular Volume 97.5 fL (80.0-98.0); Mean Platelet Volume 10.3 fL (9.4-12.3); Monocytes Absolute Auto 0.4 X10*3/uL (0.1-1.2); Monocytes Percent Auto 6.9 % (2-11); Neutrophils Absolute Auto 3.6 x10*3/uL (2.0-8.3); Platelet Count 250 X10*3/uL (160-400); Red Cell Distribution Width 12.8 % (11.0-16.0); White Blood Count 5.9 X10*3/uL (4.8-10.8)
[2022-04-02 13:29] VITALS: BP 138/75; PULSE 87; RESP 16; TEMP 36.8; O2SAT 98
[2022-04-02 13:41] LABS: Alanine Aminotransferase 13 U/L (0-31); Albumin Level 4.2 g/dL (3.5-5.0); Alkaline Phosphatase 78 U/L (39-117); Anion Gap 11 (12-20); Aspartate Amino Transferase 14 U/L (5-31); Bilirubin Direct 0.3 mg/dL (0.0-0.5); Bilirubin Total 0.9 mg/dL (0.0-1.0); Blood Urea Nitrogen 8 mg/dL (9-16); Calcium 9.3 mg/dL (8.4-10.2); Carbon Dioxide 24 mmol/L (22-29); Chloride 108 mmol/L (96-108); Creatinine Clr Calc Pharmacy 79.1; Estimated Glomerular Filt Rate > 60; Glucose Random 56 mg/dL (60-115); Sodium 139 mmol/L (135-145); Total Protein 6.9 g/dL (6.5-8.0)
[2022-04-02 13:46] LABS: Influenza A PCR NEGATIVE (Negative); Influenza B PCR NEGATIVE (Negative); Resp Syncy Virus RNA Qual PCR NEGATIVE (Negative); SARS COV2 PCR INHOUSE NEGATIVE (Negative)
[2022-04-02] MEDS: 0.9 % Sodium Chloride 1,000 ML 999 ML IV (14:09)
--- NOTE | 2022-04-02 14:10 | PC.NURSE ---
pt found to have blood glucose 56, given juice and fluids with good effect
[2022-04-02 14:42] VITALS: BP 94/54; PULSE 55; RESP 16; TEMP 36.3; O2SAT 100
[2022-04-02 14:45] LABS: Glucose, Whole Blood 106 mg/dL (60-115)
[2022-04-02 15:01] LABS: Appearance Urine Clear; Color Urine Yellow; Glucose Urine UA Negative (Negative); Leukocyte Esterase Urine Small (1+) (Negative); Nitrite Urine Negative (Negative); UMIC TRIGGER UACC YES; Urine Blood Negative (Negative); Urine Ketones Negative (Negative); Urine Protein Negative (Neg-Trace)
[2022-04-02 15:07] LABS: Bacteria Urine None Seen (None Seen); Hyaline Casts Urine 0-2 /LPF (0-2); RBC Urine 0-2 /HPF (0-2); UACC Culture Trigger YES
[2022-04-02] MEDS: diphenhydrAMINE HCL 50 MG/ML VIAL IVPUSH (16:16)
[2022-04-02] MEDS: Morphine Sulfate 4 MG/ML CARTRIDGE IVPUSH (16:16)
[2022-04-02] MEDS: ondansetron HCL 4 MG/2 ML VIAL IVPUSH (16:16)
== END 2022-04-02 16:39 | disposition home or self-care (01) ==
PROVIDERS: Physician Assistant; Emergency Provider Emergency Medicine Emergency Medical Services; PCP Physician Assistant
DX: S06.0X9A Concussion with loss of consciousness of unspecified duration, initial encounter (principal); S13.9XXA Sprain of joints and ligaments of unspecified parts of neck, initial encounter; M54.2 Cervicalgia; R56.9 Unspecified convulsions; R51.9 Headache, unspecified; F17.210 Nicotine dependence, cigarettes, uncomplicated; X58.XXXA Exposure to other specified factors, initial encounter; Y93.9 Activity, unspecified; Y92.9 Unspecified place or not applicable; Y99.9 Unspecified external cause status; Z20.822 Contact with and (suspected) exposure to COVID-19; Z20.828 Contact with and (suspected) exposure to other viral communicable diseases; Z71.6 Tobacco abuse counseling
CPT/HCPCS: 0241U; 36415; 70450; 72125; 80048; 80076; 81001; 81003; 82947; 83735; 85025; 87086; 93005; 96361; 96374; 96375; 99284; 99285; J1200; J2270; J2405

== ENCOUNTER 2022-05-22 15:22 | Outpatient (REF) | payer MEDICARE, MEDICAID, SELFPAY ==
--- NOTE | ~2022-05-22 | MM_ITS ---
EXAMINATION: MM SCREENING DIGITAL BREAST TOMOSYNTHESIS, BILATERAL CLINICAL INFORMATION: Screening. Asymptomatic. The lifetime risk of breast cancer based on the Tyrer-Cuzick Model is 17%. COMPARISON: Mammography: 03/08/2021, 10/29/2018, 10/08/2018, 09/30/2018 TECHNIQUE: Digital breast tomosynthesis is performed in both the craniocaudal and mediolateral oblique views along with computer-aided detection (CAD). Synthesized 2D images are generated from the tomosynthesis. FINDINGS: The breasts are heterogeneously dense, which may obscure small masses (ACR BI-RADS breast composition Category c). Breast tissue composition borders on average fibroglandular. There are scattered bilateral stable asymmetries. No developing density or architectural abnormality. There are no significant masses, abnormal calcifications, or other abnormalities. The axilla and skin contours are unremarkable. MM/MM tomosynthesis screening BI IMPRESSION: No mammographic evidence of malignancy. ASSESSMENT: BI-RADS 2: Benign RECOMMENDATION: Routine annual mammography screening. This patient's information was entered into a reminder system with a target due date for their next mammogram.
== END 2022-05-22 15:23 | disposition home or self-care (01) ==
LOC: HO.MAMMO 15:22
PROVIDERS: PCP Physician Assistant; Visit Provider Physician Assistant
DX: Z12.31 Encounter for screening mammogram for malignant neoplasm of breast (principal)
CPT/HCPCS: 77063; 77067

== ENCOUNTER 2022-10-02 08:35 | Outpatient (AMB) | payer MEDICARE, MEDICAID, SELFPAY ==
[2022-10-02 08:56] VITALS: BP 100/68; PULSE 65; O2SAT 97; BMI 28.5
--- NOTE | 2022-10-02 08:56 | A.OFFPC_ITS ---
Vital Signs 10/02/22 08:56 Height 5 ft 2 in Weight 156 lb BMI 28.5 BP 100/68 Blood Pressure Location Lt brachial Position Sitting Pulse 65 Pulse Source Pulse Oximeter Temp Source Skin Pulse Oximetry (%) 97 Oxygen Delivery Method Room Air Intake Visit Reasons: Follow up on multiple situations Intake Note: pt states referral needed for emergency case packer [employer] Required: No Allergies acetaminophen [ACETAMINOPHEN] Allergy (Unknown, Verified 10/02/22 09:20) ITCHY aspirin [From PERCODAN] Allergy (Unknown, Verified 10/02/22 09:20) RASH ceftriaxone [CEFTRIAXONE] Allergy (Unknown, Verified 10/02/22 09:20) RASH Cephalosporins [CEPHALOSPORINS] Allergy (Unknown, Verified 10/02/22 09:20) Hives, Itching fentanyl [FENTANYL] Allergy (Unknown, Verified 10/02/22 09:20) ANAPHYLAXIS hydromorphone [From DILAUDID] Allergy (Unknown, Verified 10/02/22 09:20) HIVES lorazepam [From ATIVAN] Allergy (Unknown, Verified 10/02/22 09:20) HEADAHCE morphine [MORPHINE] Allergy (Unknown, Verified 10/02/22 09:20) HIVES oxycodone [OXYCODONE] Allergy (Unknown, Verified 10/02/22 09:20) ITCHY penicillin G Allergy (Unknown, Verified 10/02/22 09:20) Itching Penicillins [PENICILLINS] Allergy (Unknown, Verified 10/02/22 09:20) SHORTNESS OF BREATH prednisolone Allergy (Unknown, Verified 10/02/22 09:20) Itching prednisone [PREDNISONE] Allergy (Unknown, Verified 10/02/22 09:20) ANAPHYLAXIS Medication List - Last Reconciled 10/02/22 by Miah Mendoza PA-C acetaminophen (Tylenol Extra Strength) 1,000 mg (2 x 500 mg) PO Q6H PRN acetaminophen ER 650 mg PO Q12H 30 days albuterol sulfate 90 mcg/actuation (Ventolin HFA) 1 inh inhalation QID 30 days cyclobenzaprine 10 mg PO BEDTIME 30 days fluticasone propionate 110 mcg/actuation (Flovent HFA) 1 puff inhalation BID 30 days lidocaine 5% 1 patch topical DAILY 30 days morphine 15 mg PO Q4-6H PRN ondansetron 4 mg PO Q6-8H PRN Tobacco use date assessed: 10/02/22 HPI Follow up on multiple situations HPI Details Patient is a 46-year-old female here today for visit.? Patient has a past medical history significant for major depressive disorder, systemic lupus, polyarthralgia, Immunodeficiency. She reports she is at risk for being homeless in the next 2 months due to not being able to work secondary to her medical conditions. She is asking for a case packer and written letter explaining her medical conditions and the need to keep her housing. Will be having surgery at [facility] search strategist to have her essure devised removed. SLE:? Interval history-->? Reports her chronic pain has been worsening , report alot of memory loss and headaches. She was previously seen by rubber thread spooler and was on hydroxychloroquine.? She has been on chronic narcotics in the past has been able to wean herself due to side effects and not progressing. She does also report history of fibromyalgia secondary to trauma in her life. Currently--> her pain is still somewhat evident though has been much more physically active to which has helped reduce her pain.? Does occasionally cyclobenzaprine and Tylenol which does seem to help improve her pain. She also suffers from severe anxiety to which she does use a emotional support animal( Cat) whom was registered as an emotional support animal.? She will be moving back to [place] in a homeless half-way and will need a note justify need to be in a single room and the need to have her cat live with her for emotional support. . Asthma:? Patient reports her asthma has been fairly well controlled with only p.r.n. use of her albuterol inhaler and Flovent inhaler.? She would like aerosol formulation of her inhaler as she feels this works better.? Otherwise has not had any exacerbations leading to hospitalization or ER visit. ? [facility] Medical History Asthma Chronic fatigue Encounter for Essure implantation Kidney stone Lupus Osteopenia Ovarian cyst Surgical History H/O cervical spine surgery Hx of section Social History Housing: Apartment Patient Tobacco Use Status: Current everyday Tobacco user Tobacco use type: Cigarette Cigarettes Per Day: 3 e-Cigarette/Vaping Use: Never Used Second Hand Smoke Exposure: No Current occupational status: disabled Current occupation: rt handed Cognitive needs: No Hearing needs: No Vision needs: No Female Reproductive History Menstrual Age of Menarche: 14 Questionnaire PHQ-9 Over the last 2 weeks, how often have you been bothered by any of the following problems? 1. Little interest or pleasure in doing things: not at all 2. Feeling down, depressed, or hopeless: not at all 3. Trouble falling or staying asleep, or sleeping too much: not at all 4. Feeling tired or having little energy: not at all 5. Poor appetite or overeating: not at all 6. Feeling bad about yourself - or that you are a failure or have let yourself or your family down: not at all 7. Trouble concentrating on things, such as reading the newspaper or watching television: not at all 8. Moving or speaking so slowly that other people could have noticed. Or the opposite - being so fidgety or restless that you have been moving around a lot more than usual: not at all 9. Thoughts that you would be better off or of hurting yourself in some way: not at all Total score: 0 Depression Screening Interpretation: Negative Source: Developed by Drs. Daniel Prado, Tamy Fields, John Rai and colleagues, with an educational morgan from [employer] Thrive Questionnaire Date Thrive assessed: 10/02/22 I am a: Patient What is your living situation today?: I have a steady place to live Within the past 12 months, did the food you bought not last and you didn't have the money to get more?: Never true Within the past 12 months, did you worry whether your food would run out before you got money to buy more?: Never true AUDIT C Alcohol Use Questionnaire (AUDIT-C) 1. How often do you have a drink containing alcohol?: Monthly or less 2. How many drinks containing alcohol do you have on a typical day when you are drinking?: 1 or 2 3. How often do you have six or more drinks on one occasion?: Never Total Score: 1 DILEEP-7 AMB Questionnaire DILEEP-7 Date DILEEP - 7 assessed: 10/02/22 Feeling nervous, anxious, or on edge: 0 = Not at all Not being able to stop or control worryin = Not at all Worrying too much about different things: 0 = Not at all Trouble relaxin = Not at all Being so restless that it is hard to sit still: 0 = Not at all Becoming easily annoyed or irritable: 0 = Not at all Feeling afraid as if something awful might happen: 0 = Not at all Total DILEEP-7 score (0-4 normal; 5-9 mild; 10-14 moderate; 15-21 severe): 0 Source: Developed by Drs. Daniel Prado, Tamy Fields, John Rai and colleagues, with an educational morgan from [employer] Review of Systems Const Denies headache(s) Eyes Denies loss of vision ENT Denies vertigo, Denies dizziness, Denies headache(s) and Denies sore throat Card Denies chest pain, Denies leg edema and Denies lightheadedness Resp Denies cough, Denies hemoptysis and Denies wheezing GI Denies abdominal pain, Denies melena, Denies constipation, Denies diarrhea and Denies vomiting Denies urinary frequency, Denies dysuria and Denies urinary urgency Musc Reports back pain, Reports arthralgias, Denies joint swelling, Denies numbness and Denies tingling Neuro Denies Abnormal speech present, Denies behavioral changes, Denies vertigo, Denies dizziness, Denies headache(s), Denies loss of vision, Denies memory loss, Denies numbness and Denies tingling Psych Denies anxiety, Denies behavioral changes, Denies depression, Denies memory loss and Denies panic attacks Juan Manuel/Lymph Denies easy bleeding and Denies easy bruising Aller/Immun Denies wheezing Physical exam (Primary Care) Vital Signs: Last Vital Signs Pulse 65 10/02/22 08:56 BP 100/68 10/02/22 08:56 Pulse Ox 97 10/02/22 08:56 Oxygen Delivery Method Room Air 10/02/22 08:56 BMI result Body Mass Index 28.5 Tobacco/Smoking Status: Tobacco use Status Tobacco use date assessed 10/02/22 10/02/22 08:58 Patient Tobacco Use Status Current everyday Tobacco 10/02/22 08:58 Tobacco use type Cigarette 10/02/22 08:58 e-Cigarette/Vaping Use Never Used 10/02/22 08:58 Are you ready to quit: No Tobacco cessation counseling provided: Yes Relapse Prevention: discussed the importance of a supportive environment, discussed negative mood or depression after quitting, weight gain after smoking is common and discussed dietary, exercise and/or lifestyle changes Number of minutes spent counselin CPT code: 03642 - 4-10 Minutes PHQ-9: PHQ-9 Score PHQ-9: Total score 0 10/02/22 09:26 Depression Screening Interpretation: Negative Thrive Assessment: Date of Thrive Assessment Date Thrive assessed 10/02/22 10/02/22 08:58 Const General: healthy appearing, no acute distress, alert and awake Nutritional Appearance: well nourished Orientation/consciousness: oriented to person, oriented to place and oriented to time HENMT Ears: TM's normal bilaterally General nose exam: Normal nasal mucous membranes and turbinates present Eyes Conjunctivae: conjunctivae normal Sclerae: sclerae normal Pupils: Equal, round and reactive pupils present Neck Neck: Yes no lymphadenopathy and Yes no JVD Thyroid: Thyroid normal Carotids: no bruits Resp Effort & Inspection: normal respiratory effort and not tachypneic Auscultation: no crackles, no rales, no rhonchi and no wheezes Cardio Rate: regular rate Rhythm: regular rhythm Heart sounds: no murmurs and normal S1 and S2 GI Palpation (GI): Soft to palpation, nontender, no hepatomegaly and no splenomegaly Auscultation: normal bowel sounds Skin General skin exam: no rashes or lesions noted and dry skin Neuro General: oriented to person, oriented to place and oriented to time Cranial nerves: Yes Equal, round and reactive pupils present Speech: No Abnormal speech present Gait exam (Neuro): Normal gait present Motor exam (neuro): no tremor noted Extrem Right upper extremity: full ROM Left upper extremity: full ROM Right lower extremity: full ROM; no edema Left lower extremity: full ROM; no edema Psych Mental Status: mental status grossly normal Speech and movement: Normal speech and movement present Affect: normal affect Attitude: cooperative Thought process: Normal thought process present Assessment and Plan Assessment & Plan (1) Lupus (systemic lupus erythematosus): Code(s): M32.9 - Systemic lupus erythematosus, unspecified Qualifiers: Systemic lupus erythematosus organ involvement: unspecified Systemic lupus erythematosus type: unspecified Qualified Code(s): M32.9 - Systemic lupus erythematosus, unspecified Plan: Patient has a long history of lupus affecting her joints and muscles. Kidney function has been stable. Was on hydroxychloroquine through a rubber thread spooler in the past. At this time she uses physical activity and p.r.n. use of NSAID and muscle relaxer for her pain. (2) MDD (major depressive disorder), recurrent episode, moderate: Code(s): F33.1 - Major depressive disorder, recurrent, moderate Plan: Does suffer from major depressive disorder and not interested in pills to help her with her depression. She uses physical activity and natural supplements to help her with her mood and pain. (3) Seizure-like activity: Code(s): R56.9 - Unspecified convulsions Plan: Reports having seizure-like activity was seen at [facility] and March of 2022. She does report some loss of consciousness though no tongue biting or urinary incontinence. She she did get it CT of head and neck without any notable intracranial masses. Will send for an EEG to evaluate for any seizure like activity (4) Screening for diabetes mellitus (DM): Code(s): Z13.1 - Encounter for screening for diabetes mellitus (5) Tobacco dependence: Code(s): F17.200 - Nicotine dependence, unspecified, uncomplicated Plan: She does report smoking 2 cigarettes per day and does understand she needs to completely quit. Lines my offers to start nicotine replacement therapy or medications to help her quit smoking. Orders: Orders EEG ambulatory Today R56.9 - Unspecified convulsions Anti DNA DS Antibody Today M32.9 - Systemic lupus erythematosus, unspecified Comprehensive Stover. Panel Fast Today Z13.1 - Encounter for screening for diabetes mellitus Complete Blood Count no Diff Today M32.9 - Systemic lupus erythematosus, unspecified MIGUEL Reflex Titer and Pattern Today M32.9 - Systemic lupus erythematosus, unspecified Referrals Rheumatology Referral M32.9 - Systemic lupus erythematosus, unspecified Medications: Refilled lidocaine 5% leave on most painful area for up to 12 hrs 1 patch topical DAILY 30 days 30 ea 2RF M32.9 - Systemic lupus erythematosus, unspecified, M54.2 - Cervicalgia Discontinued morphine Patient may request partial fill; Partial Fill upon patient request. Discontinued Reason: Doctor's Order 15 mg PO Q4-6H PRN 14 tabs 0RF pain Coding Level of Care Code Est Pt Level 4 (27089) Diagnoses Lupus (systemic lupus erythematosus) M32.9 Systemic lupus erythematosus organ involvement: unspecified Systemic lupus erythematosus type: unspecified MDD (major depressive disorder), recurrent episode, moderate F33.1 Seizure-like activity R56.9 Screening for diabetes mellitus (DM) Z13.1 Tobacco dependence F17.200 Additional Codes Vital Signs *Quality* - CPT code: 26952 - 4-10 Minutes ([id number])
== END 2022-10-02 09:56 | disposition home or self-care (01) ==
PROVIDERS: PCP Physician Assistant; Visit Provider Physician Assistant
DX: M32.9 Systemic lupus erythematosus, unspecified (principal); F33.1 Major depressive disorder, recurrent, moderate; R56.9 Unspecified convulsions; F17.200 Nicotine dependence, unspecified, uncomplicated; Z13.1 Encounter for screening for diabetes mellitus
CPT/HCPCS: 99214

== ENCOUNTER 2022-11-05 12:40 | Outpatient (REF) | payer MEDICARE, MEDICAID, SELFPAY ==
--- NOTE | 2022-11-05 12:43 | EEG_ITS ---
FINDINGS: The waking background activity consists of a well-defined moderate voltage 9 to 9.5 hertz posterior alpha frequency intermixed anteriorly with low-voltage fast frequencies. Photic stimulation is without activation. Hyperventilation was omitted. No focal, lateralizing, or paroxysmal discharges are seen. IMPRESSION: This waking EEG is within normal limits. MD CRISTEL Herrera/GERALD / [id number]
== END 2022-11-05 12:41 | disposition home or self-care (01) ==
LOC: HO.NEURO 12:40
PROVIDERS: PCP Physician Assistant; Visit Provider Physician Assistant
DX: R56.9 Unspecified convulsions (principal)
CPT/HCPCS: 95816

== ENCOUNTER 2022-12-12 19:19 | Emergency (ER) | payer MEDICARE, MEDICAID, SELFPAY ==
[2022-12-12 19:33] VITALS: BP 126/74; PULSE 97; RESP 20; TEMP 36.9; O2SAT 97; BMI 28.6
--- NOTE | 2022-12-12 19:33 | ED.GENADULT ---
HPI - General Adult General Chief complaint: Extremity Injury, Upper Stated complaint: fell right wrist inj hx of lupus Time Seen by Provider: 12/12/22 22:50 Source: patient, RN notes reviewed and old records reviewed Mode of arrival: ambulatory Limitations: no limitations History of Present Illness HPI narrative: 46-year-old female presents for evaluation of right wrist pain. Patient tripped and fell while she was chasing a cat for in the morning. She has pain, numbness and swelling to her right wrist Denies any her head or losing consciousness No other complaints or concerns Her pain is a 08/17 Related Data Previous Rx's Medication Instructions Recorded cyclobenzaprine 10 mg tablet 10 mg PO BEDTIME 30 days #30 tabs 11/19/21 acetaminophen 500 mg tablet 1,000 mg (2 x 500 mg) PO Q6H PRN 04/02/22 (Tylenol Extra Strength) fever or pain #20 tabs ondansetron 4 mg disintegrating 4 mg PO Q6-8H PRN nausea and 04/02/22 tablet vomiting #14 tabs acetaminophen 650 mg 650 mg PO Q12H 30 days #60 tabs 07/25/22 tablet,extended release lidocaine 5 % topical patch 1 patch topical DAILY 30 days #30 10/02/22 ea albuterol sulfate 90 mcg/actuation 1 inh inhalation QID 30 days #8.5 10/05/22 aerosol inhaler (Ventolin HFA) grams fluticasone propionate 110 1 puff inhalation BID 30 days #12 11/20/22 mcg/actuation HFA aerosol inhaler grams (Flovent HFA) Allergies Allergy/AdvReac Type Severity Reaction Status Date / Time acetaminophen [ACETAMINOPHEN] Allergy Unknown ITCHY Verified 12/12/22 19:37 aspirin [From PERCODAN] Allergy Unknown RASH Verified 12/12/22 19:37 ceftriaxone [CEFTRIAXONE] Allergy Unknown RASH Verified 12/12/22 19:37 Cephalosporins Allergy Unknown Hives, Verified 12/12/22 19:37 [CEPHALOSPORINS] Itching fentanyl [FENTANYL] Allergy Unknown ANAPHYLAXIS Verified 12/12/22 19:37 hydromorphone [From DILAUDID] Allergy Unknown HIVES Verified 12/12/22 19:37 lorazepam [From ATIVAN] Allergy Unknown HEADAHCE Verified 12/12/22 19:37 morphine [MORPHINE] Allergy Unknown HIVES Verified 12/12/22 19:37 oxycodone [OXYCODONE] Allergy Unknown ITCHY Verified 12/12/22 19:37 penicillin G Allergy Unknown Itching Verified 12/12/22 19:37 Penicillins [PENICILLINS] Allergy Unknown SHORTNESS Verified 12/12/22 19:37 OF BREATH prednisolone Allergy Unknown Itching Verified 12/12/22 19:37 prednisone [PREDNISONE] Allergy Unknown ANAPHYLAXIS Verified 12/12/22 19:37 Review of Systems Constitutional: Constitutional: Denies frequent falls and Denies headache(s) ENT: Denies headache(s) Cardiovascular: Cardiovascular: Denies syncope Musculoskeletal: Musculoskeletal: Reports arthralgias, Reports joint swelling and Reports limited range of motion Neurologic: Denies syncope, Denies frequent falls and Denies headache(s) [facility] Past Medical History Medical History Asthma Chronic fatigue Encounter for Essure implantation Kidney stone Lupus Osteopenia Ovarian cyst Surgical History H/O cervical spine surgery Hx of section Social History Social History Housing: Apartment Patient Tobacco Use Status: Current everyday Tobacco user Tobacco use type: Cigarette Cigarettes Per Day: 3 Smoked in Last 30 Days: Yes e-Cigarette/Vaping Use: Never Used Second Hand Smoke Exposure: No Use of substances other than those prescribed or required for medical reasons: Yes Substance Use Type: Marijuana Substance Use Frequency: Chronic Longstanding Advance Directives: No Advance Directives Information Provided: No Patient : No Current occupational status: disabled Current occupation: rt handed Cognitive needs: No Hearing needs: No Vision needs: No Physical Exam ED Vital Signs: Vital Signs - 24 hr 12/12/22 19:33 12/12/22 22:27 Temperature 98.5 F Pulse Rate 97 82 Respiratory Rate 20 18 Blood Pressure 126/74 143/68 H Pulse Oximetry 97 100 Oxygen Delivery Method Room Air BMI result Body Mass Index 28.6 Const General: healthy appearing, comfortable, no acute distress, alert and awake Nutritional Appearance: well nourished Orientation/consciousness: patient oriented x3 HENMT Head: Yes normocephalic and Yes atraumatic Eyes Eyelids: Yes eyelids normal Conjunctivae: conjunctivae normal Sclerae: sclerae normal Corneas: corneas normal Pupils: Equal, round and reactive pupils present EOM: EOMs intact bilaterally Neck Neck: Yes full ROM Resp Effort & Inspection: normal respiratory effort, able to speak in complete sentences and not labored Skin General skin exam: elasticity normal Neuro General: patient oriented x3 Cranial nerves: Yes Equal, round and reactive pupils present and Yes Bilaterally intact EOM present Cognition (Neuro): normal cognition Extrem Other: Moving all extremities well without any obvious deformities. Patient is mild tenderness to the right wrist without any focal tenderness. No visual or palpable deformities. She has good range of motion to the right elbow and wrist. Significant scaphoid tenderness. Course Course Course Narrative: This is a rapid medical exam: Additional HPI, ROS, PE not included below will be deferred to primary provider. Patient is a 46-year-old right hand dominant female with history of lupus presenting to the emergency department with complaint of right wrist pain. States she was chasing her cat overnight and slipped, falling onto outstretched hands. Took 650mg Tylenol. Complains of numbness/tingling to middle and ring finger of right hand, swelling to wrist. Plan: x-ray Medical Decision Making Medical Decision Making MDM Narrative: Patient had a fall injuring her right wrist. X-rays are negative for fracture. Clinically it as a low suspicion for fracture, she will be discharged with Gareth wrap in symptomatic care Differential Diagnosis Differential Diagnoses: The differential diagnosis associated with the presentation includes Wrist sprain Wrist fracture Wrist dislocation Contusion Independent Interpretation I performed an independent interpretation of an: Plain X-Ray (No obvious fracture of the right hand or wrist) Radiology Impression Discussion of test interpretation with radiology: I have reviewed the radiologist's reading. (Normal right hand and wrist) Discharge Plan Discharge Clinical Impression: Right wrist sprain Patient Disposition: Home, Self-Care Instructions: Wrist Sprain (ED) Additional Instructions: Your x-ray did not show any fractures. Use ibuprofen/Tylenol for pain Elevate your wrist above your heart wall resting Apply ice every 4 hours for the next 2-3 days Prescriptions: No Action cyclobenzaprine 10 mg tablet 10 mg PO BEDTIME 30 Days Qty: 30 0RF acetaminophen 650 mg tablet extended release 650 mg PO Q12H 30 Days Qty: 60 0RF albuterol sulfate [Ventolin HFA] 90 mcg/actuation HFA aerosol inhaler 1 inh inhalation QID 30 Days Qty: 8.5 0RF fluticasone propionate [Flovent HFA] 110 mcg/actuation HFA aerosol inhaler 1 puff inhalation BID 30 Days Qty: 12 0RF acetaminophen [Tylenol Extra Strength] 500 mg tablet 1,000 mg PO Q6H PRN (Reason: fever or pain) Qty: 20 0RF ondansetron 4 mg tablet,disintegrating 4 mg PO Q6-8H PRN (Reason: nausea and vomiting) Qty: 14 0RF lidocaine 5 % adhesive patch,medicated 1 patch topical DAILY 30 Days Qty: 30 2RF Rx Instructions: leave on most painful area for up to 12 hrs Interventions: ED Discharge Assessment Last Done: 12/12/22 23:31 Discharge Date/Time: 12/12/22 23:32
[2022-12-12 22:27] VITALS: BP 143/68; PULSE 82; RESP 18; O2SAT 100
== END 2022-12-12 23:32 | disposition home or self-care (01) ==
PROVIDERS: Emergency Provider Emergency Medicine; PCP Physician Assistant
DX: S63.501A Unspecified sprain of right wrist, initial encounter (principal); W01.0XXA Fall on same level from slipping, tripping and stumbling without subsequent striking against object, initial encounter; Y93.02 Activity, running; Y92.9 Unspecified place or not applicable; Y99.9 Unspecified external cause status
CPT/HCPCS: 73110; 73130; 99283; 99284

== ENCOUNTER 2023-07-07 13:27 | Outpatient (AMB) | payer MEDICARE, MEDICAID, SELFPAY ==
--- NOTE | 2023-07-07 13:20 | MHC.PC.OV ---
Intake Visit Reasons: MEDS F/U Intake Note: The in-person office visit has been changed to a telehealth call with the PCP to address the following concerns: The patient is requesting a referral to a meat specialist at [facility] due to ongoing issues. They report significant trouble with their back and screws since their last surgery in November. This week, they're experiencing a shift in their back to the right side accompanied by severe pain. Metal Furniture Repairer Required: No Information Interpreted: non-clinical & clinical Physician Locums Urgent Care: Not Required per policy Accompanied by: Self / Same As Patient Allergies acetaminophen [ACETAMINOPHEN] Allergy (Unknown, Verified 07/07/23 13:41) ITCHY aspirin [From PERCODAN] Allergy (Unknown, Verified 07/07/23 13:41) RASH ceftriaxone [CEFTRIAXONE] Allergy (Unknown, Verified 07/07/23 13:41) RASH Cephalosporins [CEPHALOSPORINS] Allergy (Unknown, Verified 07/07/23 13:41) Hives, Itching fentanyl [FENTANYL] Allergy (Unknown, Verified 07/07/23 13:41) ANAPHYLAXIS hydromorphone [From DILAUDID] Allergy (Unknown, Verified 07/07/23 13:41) HIVES lorazepam [From ATIVAN] Allergy (Unknown, Verified 07/07/23 13:41) HEADAHCE morphine [MORPHINE] Allergy (Unknown, Verified 07/07/23 13:41) HIVES oxycodone [OXYCODONE] Allergy (Unknown, Verified 07/07/23 13:41) ITCHY penicillin G Allergy (Unknown, Verified 07/07/23 13:41) Itching Penicillins [PENICILLINS] Allergy (Unknown, Verified 07/07/23 13:41) SHORTNESS OF BREATH prednisolone Allergy (Unknown, Verified 07/07/23 13:41) Itching prednisone [PREDNISONE] Allergy (Unknown, Verified 07/07/23 13:41) ANAPHYLAXIS Medication List - Last Reconciled 07/07/23 by Miah Mendoza PA-C acetaminophen (Tylenol Extra Strength) 1,000 mg (2 x 500 mg) PO Q6H PRN acetaminophen ER 650 mg PO Q12H 30 days albuterol sulfate 90 mcg/actuation (Ventolin HFA) 1 inh inhalation QID 30 days cyclobenzaprine 10 mg PO BEDTIME 30 days lidocaine 5% 1 patch topical DAILY 30 days mometasone 100 mcg/actuation (Asmanex HFA) 1 puff inhalation BID 30 days ondansetron 4 mg PO Q6-8H PRN Tobacco use date assessed: 07/07/23 Dental Screening Dental Screen Date: 07/07/23 Did you have a dental visit in the last 12 months?: No Did you have a dental problem in the last 6 months where you did not have access to dental care?: No Was dental information given to patient?: Patient has dentist HPI MEDS F/U HPI Details Patient is a 47-year-old female being evaluated today via telephone. ? Patient has a past medical history significant for major depressive disorder, systemic lupus, polyarthralgia, Immunodeficiency. Concern--> she reports she has been having worsening lumbar spine pain and lower extremity weakness. She reports getting a surgery on her uterus and fallopian tubes in November of 2022 and ever since surgery she has been having worsening lower back pain. She did have lumbar disc and vertebral surgery in 2007 at [facility] with hardware placement and screws. She is concerned about the hardware placement. She reports she is fairly disabled at this time and is only able to walk from room to room. She was not able to come in to today's appointment due to the continued pain in lower back and lower extremity weakness. SLE:? Interval history-->? Reports her chronic pain has been worsening , report alot of memory loss and headaches. She was previously seen by inspector repairer and was on hydroxychloroquine 100mg.? She has been on chronic narcotics in the past has been able to wean herself due to side effects and not progressing. She does also report history of fibromyalgia secondary to trauma in her life. Currently--> her pain is still somewhat evident though has been much more physically active to which has helped reduce her pain.? Does occasionally cyclobenzaprine and Tylenol which does seem to help improve her pain. She also suffers from severe anxiety to which she does use a emotional support animal( Cat) whom was registered as an emotional support animal.? She will be moving back to [place] in a homeless senior living and will need a note justify need to be in a single room and the need to have her cat live with her for emotional support. . Asthma:? Patient reports her asthma has been fairly well controlled with only p.r.n. use of her albuterol inhaler and Flovent inhaler.? She would like aerosol formulation of her inhaler as she feels this works better.? Otherwise has not had any exacerbations leading to hospitalization or ER visit. [facility] Medical History (Updated 07/07/23 @ 13:50 by Miah Mendoza PA-C) Encounter for Essure implantation Kidney stone Ovarian cyst Chronic fatigue Asthma Osteopenia Lupus Surgical History (Updated 07/07/23 @ 13:54 by Miah Mendoza PA-C) History of lumbosacral spine surgery Hx of section H/O cervical spine surgery Social History Housing: Apartment Patient Tobacco Use Status: Current everyday Tobacco user Tobacco use type: Cigarette Cigarettes Per Day: 2 e-Cigarette/Vaping Use: Never Used Second Hand Smoke Exposure: No Substance Use Type: Marijuana service: No Current occupational status: disabled Current occupation: rt handed Cognitive needs: No Hearing needs: No Vision needs: No Female Reproductive History Menstrual Age of Menarche: 14 Questionnaire PHQ-9 Over the last 2 weeks, how often have you been bothered by any of the following problems? 1. Little interest or pleasure in doing things: not at all 2. Feeling down, depressed, or hopeless: not at all 3. Trouble falling or staying asleep, or sleeping too much: not at all 4. Feeling tired or having little energy: not at all 5. Poor appetite or overeating: not at all 6. Feeling bad about yourself - or that you are a failure or have let yourself or your family down: not at all 7. Trouble concentrating on things, such as reading the newspaper or watching television: not at all 8. Moving or speaking so slowly that other people could have noticed. Or the opposite - being so fidgety or restless that you have been moving around a lot more than usual: not at all 9. Thoughts that you would be better off or of hurting yourself in some way: not at all Total score: 0 Depression Screening Interpretation: Negative Depression Screening Done: Yes 68215 - PHQ-9 Billing: Yes Source: Developed by Drs. Daniel Prado, Tamy Fields, John Rai and colleagues, with an educational morgan from [employer]. Thrive Questionnaire Date Thrive assessed: 07/07/23 I am a: Patient What is your living situation today?: I have a steady place to live Within the past 12 months, did the food you bought not last and you didn't have the money to get more?: Never true Within the past 12 months, did you worry whether your food would run out before you got money to buy more?: Never true Do you have trouble paying for medicines?: No Do you have trouble getting transportation to medical appointments?: No Do you have trouble paying your heating and electricity bill?: No Do you have trouble taking care of your child, family member or friend?: No Do you have trouble with day-to-day activities such as bathing, preparing meals, shopping, managing finances, etc.?: No Are you currently unemployed and looking for a job?: No Are you interested in more education?: No Please select the resources that you would like help with: None Currently or been in a relationship where the following occur: no concerns reported THRIVE Score: 0 AUDIT C Alcohol Use Questionnaire (AUDIT-C) 1. How often do you have a drink containing alcohol?: Never 3. How often do you have six or more drinks on one occasion?: Never Total Score: 0 DILEEP-7 AMB Questionnaire DILEEP-7 Date DILEEP - 7 assessed: 07/07/23 Feeling nervous, anxious, or on edge: 3 = Nearly every day Not being able to stop or control worryin = Several days Worrying too much about different things: 0 = Not at all Trouble relaxin = Nearly every day Being so restless that it is hard to sit still: 1 = Several days Becoming easily annoyed or irritable: 0 = Not at all Feeling afraid as if something awful might happen: 2 = More than half the days Total DILEEP-7 score (0-4 normal; 5-9 mild; 10-14 moderate; 15-21 severe): 10 Source: Developed by Drs. Daniel Prado, Tamy Fields, John Rai and colleagues, with an educational morgan from [employer]. DILEEP-7 Assessment Billing DILEEP-7 Assessment Tool: DILEEP-7 Assessment 91340 Review of Systems Const Denies headache(s) Eyes Denies loss of vision ENT Denies vertigo, Denies dizziness, Denies headache(s), Reports neck pain and Denies sore throat Card Denies chest pain, Denies leg edema and Denies lightheadedness Resp Denies cough, Denies hemoptysis and Denies wheezing GI Denies abdominal pain, Denies melena, Denies constipation, Denies diarrhea and Denies vomiting Denies urinary frequency, Denies dysuria and Denies urinary urgency Musc Reports back pain, Denies arthralgias, Denies joint swelling, Reports neck pain, Denies numbness, Reports radiating pain into limb and Denies tingling Neuro Denies behavioral changes, Denies vertigo, Denies dizziness, Denies headache(s), Denies loss of vision, Denies memory loss, Denies numbness and Denies tingling Psych Denies anxiety, Denies behavioral changes, Denies depression, Denies memory loss and Denies panic attacks Juan Manuel/Lymph Denies easy bleeding and Denies easy bruising Aller/Immun Denies wheezing Physical exam (Primary Care) Tobacco/Smoking Status: Tobacco use Status Tobacco use date assessed 07/07/23 07/07/23 13:27 Patient Tobacco Use Status Current everyday Tobacco 07/07/23 13:27 Tobacco use type Cigarette 07/07/23 13:27 e-Cigarette/Vaping Use Never Used 07/07/23 13:27 PHQ-9: PHQ-9 Score PHQ-9: Total score 0 07/07/23 13:43 Depression Screening Interpretation: Negative Thrive Assessment: Date of Thrive Assessment Date Thrive assessed 07/07/23 07/07/23 13:27 Currently or been in a relationship where the following occur: no concerns reported Telehealth Telehealth Telehealth Platform: Telephone Location of provider rendering services: practice address Location of patient: address on file Patient Identification confirmed using: Name, : Yes Telehealth method: voice only Patient verbally consented to treatment: Yes Patient verbally consented to billing insurance company: Yes Patient informed of any privacy concerns related to visit: Yes Minutes spent on Phone/Video with Pt.: 15 Assessment and Plan Assessment & Plan (1) Lumbar radiculitis: Code(s): M54.16 - Radiculopathy, lumbar region Plan: As per HPI patient having acute on chronic lower lumbar spine pain. Did have lumbar spine vertebral surgery in 2007 at [facility] to which hardware was placed. Will get x-ray and try for new MRI of lumbar spine due to insidious onset of worsening lower back pain. Has quite a few allergies to pain medications. Was given morphine 15 mg after surgery and did fine with. We did discuss we are only able to get for short term low-dose script to use on emergency cases only and patient agrees and understands. (2) Cervical radiculopathy: Code(s): M54.12 - Radiculopathy, cervical region Plan: As per [facility] Orders: Orders XR lumbar spine 2-3V 07/07/23 M54.16 - Radiculopathy, lumbar region MR lumbar spine wo con 07/07/23 M54.16 - Radiculopathy, lumbar region XR cervical spine 4V 07/07/23 M54.12 - Radiculopathy, cervical region Referrals Neuro Spine Referral M54.16 - Radiculopathy, lumbar region Medications: New hydroxychloroquine 100 mg PO BID 60 tabs 1RF 30 days M32.9 - Systemic lupus erythematosus, unspecified morphine ER Partial Fill upon patient request. 15 mg PO BEDTIME 5 tabs 0RF 5 days M54.16 - Radiculopathy, lumbar region Coding Level of Care Code Tele Est Pt Level 4 (59417) Diagnoses Lumbar radiculitis M54.16 Cervical radiculopathy M54.12 Additional Codes DILEEP-7 Assessment Billing - DILEEP-7 Assessment Tool: DILEEP-7 Assessment 14651 ([id number])
--- OUTSIDE RECORDS SUMMARY | 2023-07-07 13:29 | XMS_ITS | Continuity of Care Document ---
Author Organization [facility] Address [address] [place] [address], [address] [place] [address]- Care Team Providers Care Machines Technician Name Role Phone Miah Angelo Primary Care Physician [phone] [facility] [place] 12/[place]/22 [facility] [place] [facility] [address], [address] [place], [place] [address] Allergies, Adverse Reactions, Alerts Substance Reaction Severity Status penicillin Active aspirin Active morphine Active predniSONE Active Rocephin Active Percocet Active Dilaudid Active Ativan Active cefTRIAXone Active LORazepam Active fentaNYL Active oxyCODONE Active Medications acetaminophen 650 mg oral tablet, extended release TAKE 1 TABLET BY MOUTH EVERY 12 HOURS Start Date: 08/19/22 Status: Ordered cyclobenzaprine 10 mg oral tablet 10 mg, 1, tablet, By Mouth, 3 times a day, # 30 tablet, Refills 0, Tot. Refills 0, Maintenance, 11/17/22 16:37:00 EDT, Route to Pharmacy Electronically, [facility]/pharmacy #[id number], Partial fill upon patient request if the prescription is for a schedule II opi... Start Date: 11/17/22 Status: Ordered cyclobenzaprine 10 mg oral tablet TAKE 1 TABLET BY MOUTH EVERYDAY AT BEDTIME Start Date: 08/19/22 Status: Ordered Diflucan 150 mg oral tablet 1 tablet = 150 mg, By Mouth, Once, take 1 tablet day , take 2nd tablet on day 4, # 2 tablet, 0 Refills, Soft Stop, 11/28/22 11:09:00 EDT, [facility]/pharmacy #[id number], Partial fill upon patient request if the prescription is for a schedule II opioid drug., 158,... Start Date: 11/28/22 Status: Ordered Flovent HFA 110 mcg/inh inhalation aerosol INHALE 1 PUFF BY MOUTH TWICE A DAY Start Date: 08/19/22 Status: Ordered fluconazole 150 mg oral tablet 1 tablet = 150 mg, By Mouth, Once, # 1 tablet, 0 Refills, Soft Stop, 11/15/22 9:20:00 EDT, Tablet, [facility]/pharmacy #[id number], Partial fill upon patient request if the prescription is for a schedule II opioid drug., 158, cm, 11/15/22 7:13:00 EDT, Height, 70.4... Start Date: 11/15/22 Status: Ordered lidocaine 5% topical film 1 patch, Topically, Daily, PRN Pain , Mild, remove after 12 hours, # 13 each, 1 Refills, Maintenance, 11/28/22 15:22:00 EDT, Film, [facility]/pharmacy #[id number], Partial fill upon patient request if the prescription is for a schedule II opioid drug., 1 patch Top... Start Date: 11/28/22 Status: Ordered lidocaine 5% topical film 1 patch, Topically, Daily, PRN Pain , Mild, remove after 12 hours, # 13 each, 0 Refills, Maintenance, 08/19/22 15:53:00 EDT, Film, Partial fill upon patient request if the prescription is for a schedule II opioid drug. Start Date: 08/19/22 Status: Ordered MiraLax oral powder for reconstitution See Instructions, By Mouth, For constipation: one to 3 capfuls by mouth, every day, titrate up to effect if need be., # 527 Gm, 0 Refills, Maintenance, 11/17/22 16:35:00 EDT, [facility]/pharmacy #[id number], Partial fill upon patient request if the prescription is... Start Date: 11/17/22 Status: Ordered morphine 15 mg/8 to 12 hr oral tablet, extended release = 15 mg, By Mouth, Every 12 hours, # 10 tablet, 0 Refills, Maintenance, 11/15/22 6:31:00 EDT, ER Tablet, [id number], Partial fill upon patient request if the prescription is for a schedule IIopioid drug., 158, cm, 11/15/22 3:50:00 EDT, Height... Start Date: 11/15/22 Stop Date: 12/07/22 Status: Ordered Triple Antibiotic topical ointment 1 application, Topically, 2 times a day, # 30 Gm, 0 Refills, Maintenance, 11/28/22 15:48:00 EDT, Ointment, [id number], Partial fill upon patient request if the prescription is for a schedule II opioid drug., 1 application Topically 2 times a d... Start Date: 11/28/22 Status: Ordered Ventolin HFA 108 mcg/inh inhalation aerosol with adapter INHALE 1 PUFF BY MOUTH 4 TIMES A DAY Start Date: 08/19/22 Status: Ordered Walker See Instructions, # 1 each, Maintenance, Walker, use as needed, 11/15/22 9:29:00 EDT, Supply Start Date: 11/15/22 Status: Ordered Walker See Instructions, # 1 each, Maintenance, Use as needed, 11/15/22 9:30:00 EDT, Supply Start Date: 11/15/22 Status: Ordered Problem List Condition Confirmation Course Effective Dates Status [facility] Anxiety Confirmed Active Chronic pain Confirmed Active Fibromyalgia Confirmed Active Osteopenia Confirmed Active Lupus (systemic lupus erythematosus) Confirmed Active Patient Care team information Care Team Personnel Name: Miah Angelo Position: Reference Physician Member Role: PCP Address: Address: [address] [place] [address]- Name: Harika Kaba RN Position: ARRON RN Member Role: Primary Care Nurse Care Team Related Persons Name: TAD BERRY Name: EZEKIEL OROZCO
--- OUTSIDE RECORDS SUMMARY | 2023-07-07 13:29 | XMS_ITS | Continuity of Care Document ---
[facility] Address [address] [place] [address], [address] [place] [address]- Care Team Providers Care Buyer Agent Name Role Phone Miah Angelo Primary Care Physician En[place] [facility] [place] Date(s): 12/23/22 - 01/22/23 [facility] [employer] [facility] [address], [address] [place], [place] [address] Allergies, Adverse Reactions, Alerts Substance Reaction Severity [...] 11/17/22 16:37:00 EDT, Route to Pharmacy Electronically, [facility]/pharmacy #[id number], Partial fill upon patient request if [...] 0 Refills, Soft Stop, 11/28/22 11:09:00 EDT, [facility]/pharmacy #[id number], Partial fill upon patient request if [...] Refills, Soft Stop, 11/15/22 9:20:00 EDT, Tablet, [facility]/pharmacy #[id number], Partial fill upon patient request if the prescription is for a schedule II opioid drug., 158, cm, 11/15/22 7:13:00 EDT, Height, 70.4... Start Date: 11/15/22 Status: Ordered lidocaine 5% topical film 1 patch, Topically, Daily, PRN Pain , Mild, remove after 12 hours, # 13 each, 1 Refills, Maintenance, 11/28/22 15:22:00 EDT, Film, [facility]/pharmacy #[id number], Partial fill upon patient request if [...] Refills, Maintenance, 11/28/22 15:48:00 EDT, Ointment, [id number], Partial fill upon patient request if the [...] List Condition Confirmation Course Effective Dates [facility] Anxiety Confirmed Active Chronic pain Confirmed Active Fibromyalgia Confirmed Active Osteopenia Confirmed Active Lupus (systemic lupus erythematosus) Confirmed Active Patient Care team information Care Team Personnel Name: Miah Angelo Position: Reference Physician Member Role: PCP Address: Address: [address] [place] [address]- Name: Harika Kaba RN Position: ARRON RN Member Role: Primary Care Nurse Care Team Related Persons Name: TAD BERRY Name: EZEKIEL OROZCO
--- OUTSIDE RECORDS SUMMARY | 2023-07-07 13:29 | XMS_ITS | Continuity of Care Document ---
Author Organization [facility] Address [address] [place] [address], [address] [place] [address]- Care Team Providers Care Toe Puller Name Role Phone Miah Angelo Primary Care Physician Encounter [facility] [place] Date(s): 12/23/22 - 01/22/23 [facility]sa [employer] [facility] [address] [facility], [address] [place], [place] [address] Attending Physician: AdmtrNiraj Admitting Physician: Admtr, Ar8 Referring Physician: Admtr, Ar8 Allergies, Adverse Reactions, Alerts Substance Reaction Severity [...] 11/17/22 16:37:00 EDT, Route to Pharmacy Electronically, [facility]/pharmacy #[id number], Partial fill upon patient request if the [...] 0 Refills, Soft Stop, 11/28/22 11:09:00 EDT, [facility]/pharmacy #[id number], Partial fill upon patient request if [...] Refills, Soft Stop, 11/15/22 9:20:00 EDT, Tablet, [facility]/pharmacy #[id number], Partial fill upon patient request if the prescription is for a schedule II opioid drug., 158, cm, 11/15/22 7:13:00 EDT, Height, 70.4... Start Date: 11/15/22 Status: Ordered lidocaine 5% topical film 1 patch, Topically, Daily, PRN Pain , Mild, remove after 12 hours, # 13 each, 1 Refills, Maintenance, 11/28/22 15:22:00 EDT, Film, [facility]/pharmacy #[id number], Partial fill upon patient request if [...] Refills, Maintenance, 11/28/22 15:48:00 EDT, Ointment, [id number], Partial fill upon patient request if the [...] Confirmation Course Effective Dates Status [facility] Informant Anxiety Confirmed Active Chronic pain Confirmed Active Fibromyalgia Confirmed Active Osteopenia Confirmed Active Lupus (systemic lupus erythematosus) Confirmed Active Patient Care team information Care Team Personnel Name: Miah Angelo Position: Reference Physician Member Role: PCP Address: Address: [address] [place] [address]- Name: Harika Kaba RN Position: S RN Member Role: Primary Care Nurse Care Team Related Persons Name: TAD BERRY Name: EZEKIEL OROZCO
--- OUTSIDE RECORDS SUMMARY | 2023-07-07 13:29 | XMS_ITS | Continuity of Care Document ---
Author Organization [facility] Address [address] [place] [address], [address] [place] [address]- Care Team Providers Care State'S Attorney Name Role Phone Miah Angelo Primary Care Physician [place] [facility] [id number] Date(s): 11/27/22 - 01/22/23 [facility] [place] [employer] [facility] [address] [facility], [address] [place], [place] [address] Attending Physician: Judith Hutchinson MD Admitting Physician: Judith Hutchinson MD Referring Physician: Miah Angelo Allergies, Adverse Reactions, Alerts Substance Reaction Severity [...] 11/17/22 16:37:00 EDT, Route to Pharmacy Electronically, [facility]/pharmacy #[id number], Partial fill upon patient request if the [...] 0 Refills, Soft Stop, 11/28/22 11:09:00 EDT, [id number], Partial fill upon patient [...] Refills, Soft Stop, 11/15/22 9:20:00 EDT, Tablet, [facility]/pharmacy #[id number], Partial fill upon patient request if the prescription is for a schedule II opioid drug., 158, cm, 11/15/22 7:13:00 EDT, Height, 70.4... Start Date: 11/15/22 Status: Ordered lidocaine 5% topical film 1 patch, Topically, Daily, PRN Pain , Mild, remove after 12 hours, # 13 each, 1 Refills, Maintenance, 11/28/22 15:22:00 EDT, Film, [facility]/pharmacy #[id number], Partial fill upon patient request if [...] Refills, Maintenance, 11/28/22 15:48:00 EDT, Ointment, [id number], Partial fill upon patient request if the [...] Physician Member Role: PCP Address: Address: [address] [place] [address]- Name: Harika Kaba RN Position: S RN Member Role: Primary Care Nurse Care Team Related Persons Name: TAD BERRY Name: EZEKIEL OROZCO
--- OUTSIDE RECORDS SUMMARY | 2023-07-07 13:29 | XMS_ITS | Continuity of Care Document ---
Author Organization [facility] [employer] [facility] Address [address] [place] [address], [address] [place] [address]- Care Team Providers Care Counter Clerk [employer] Name Role Phone Miah Angelo Primary Care Physician Encounter [facility] [place]CT R [id number] Date(s): 09/20/22 - 12/29/22 [facility] [place] [employer] [facility] [address] [facility], [address] [place], [place] [address] Attending Physician: Judith Hutchinson MD Admitting [...] 11/17/22 16:37:00 EDT, Route to Pharmacy Electronically, [facility]/pharmacy #[id number], Partial fill upon patient request if the [...] Refills, Soft Stop, 11/15/22 9:20:00 EDT, Tablet, [facility]/pharmacy #[id number], Partial fill upon patient request if the prescription is for a schedule II opioid drug., 158, cm, 11/15/22 7:13:00 EDT, Height, 70.4... Start Date: 11/15/22 Status: Ordered lidocaine 5% topical film 1 patch, Topically, Daily, PRN Pain , Mild, remove after 12 hours, # 13 each, 1 Refills, Maintenance, 11/28/22 15:22:00 EDT, Film, [facility]/pharmacy #[id number], Partial fill upon patient request [...] Refills, Maintenance, 11/28/22 15:48:00 EDT, Ointment, [id number], Partial fill upon patient request if the [...] Physician Member Role: PCP Address: Address: [address] [place] [address]- Name: Harika Kaba RN Position: S RN Member Role: Primary Care Nurse Care Team Related Persons Name: TAD BERRY Name: EZEKIEL OROZCO
== END 2023-07-07 16:12 | disposition home or self-care (01) ==
LOC: HO.HMGH 13:27
PROVIDERS: PCP Physician Assistant; Visit Provider Physician Assistant
DX: M54.16 Radiculopathy, lumbar region (principal); M54.12 Radiculopathy, cervical region
CPT/HCPCS: 99442

== ENCOUNTER 2023-07-11 12:44 | Outpatient (REF) | payer MEDICARE, MEDICAID, SELFPAY ==
--- NOTE | ~2023-07-11 | XR_ITS ---
EXAMINATION: XR lumbar spine, XR cervical spine CLINICAL INFORMATION: Radiculopathy COMPARISON: CT cervical spine 04/02/2022, lumbar spine radiographs 10/29/2018 TECHNIQUE: 6 views of the cervical spine and 3 views of the lumbar spine FINDINGS: CERVICAL SPINE: The cervical spine is visualized to the level of C7-T1 on the lateral view. Reversal of the usual cervical spine lordosis. Minimal anterolisthesis of C3 on C4 and C4 on C5. Vertebral body heights are maintained. Lateral masses of C1 are well aligned on C2. Visualized portion of the dens is intact. Moderate degenerative disc disease worst at C5-C6 and C6-C7 with multilevel loss of disc space height.. Uncovertebral hypertrophy and facet arthropathy results in moderate neural foraminal narrowing on the right worst at C5-C6 and C6-C7 and in multilevel neural foraminal narrowing on the left worst at C6-C7 where it is severe. No prevertebral soft tissue swelling. LUMBAR SPINE: 5 nonrib-bearing lumbar-type vertebral bodies. Status post L4-L5 posterior spinal fusion and interbody disc spacer. Osseous fusion is noted across L5-S1. Vertebral body heights are maintained. Alignment is maintained. Interval progression of multilevel degenerative disc disease worse at L4-L5 where there is moderate loss of disc space height. Paravertebral soft tissues are unremarkable. XR/XR cervical spine 4V IMPRESSION: CERVICAL SPINE: Moderate degenerative disc disease worst at C5-C6 and C6-C7 with multilevel loss of disc space height. Uncovertebral hypertrophy and facet arthropathy results in moderate neural foraminal narrowing on the right worst at C5-C6 and C6-C7 and in multilevel neural foraminal narrowing on the left worst at C6-C7 where it is severe. LUMBAR SPINE: 1. Status post L4-L5 posterior spinal fusion and interbody disc spacer. Osseous fusion is noted across L5-S1. Vertebral body heights are maintained. Alignment is maintained. 2. Interval progression of multilevel degenerative disc disease worse at L4-L5 where there is moderate loss of disc space height.
--- NOTE | ~2023-07-11 | XR_ITS ---
EXAMINATION: XR lumbar spine, XR cervical spine CLINICAL INFORMATION: Radiculopathy COMPARISON: CT cervical spine 04/02/2022, lumbar spine radiographs 10/29/2018 TECHNIQUE: 6 views of the cervical spine and 3 views of the lumbar spine FINDINGS: CERVICAL SPINE: The cervical spine is visualized to the level of C7-T1 on the lateral view. Reversal of the usual cervical spine lordosis. Minimal anterolisthesis of C3 on C4 and C4 on C5. Vertebral body heights are maintained. Lateral masses of C1 are well aligned on C2. Visualized portion of the dens is intact. Moderate degenerative disc disease worst at C5-C6 and C6-C7 with multilevel loss of disc space height.. Uncovertebral hypertrophy and facet arthropathy results in moderate neural foraminal narrowing on the right worst at C5-C6 and C6-C7 and in multilevel neural foraminal narrowing on the left worst at C6-C7 where it is severe. No prevertebral soft tissue swelling. LUMBAR SPINE: 5 nonrib-bearing lumbar-type vertebral bodies. Status post L4-L5 posterior spinal fusion and interbody disc spacer. Osseous fusion is noted across L5-S1. Vertebral body heights are maintained. Alignment is maintained. Interval progression of multilevel degenerative disc disease worse at L4-L5 where there is moderate loss of disc space height. Paravertebral soft tissues are unremarkable. XR/XR lumbar spine 2-3V IMPRESSION: CERVICAL SPINE: Moderate degenerative disc disease worst at C5-C6 and C6-C7 with multilevel loss of disc space height. Uncovertebral hypertrophy and facet arthropathy results in moderate neural foraminal narrowing on the right worst at C5-C6 and C6-C7 and in multilevel neural foraminal narrowing on the left worst at C6-C7 where it is severe. LUMBAR SPINE: 1. Status post L4-L5 posterior spinal fusion and interbody disc spacer. Osseous fusion is noted across L5-S1. Vertebral body heights are maintained. Alignment is maintained. 2. Interval progression of multilevel degenerative disc disease worse at L4-L5 where there is moderate loss of disc space height.
== END 2023-07-11 12:45 | disposition home or self-care (01) ==
LOC: HO.XRAY 12:44
PROVIDERS: PCP Physician Assistant; Visit Provider Physician Assistant
DX: M54.16 Radiculopathy, lumbar region (principal); M54.12 Radiculopathy, cervical region
CPT/HCPCS: 72050; 72100

== ENCOUNTER 2023-07-30 16:55 | Outpatient (REF) | payer MEDICARE, MEDICAID, SELFPAY ==
--- NOTE | ~2023-07-30 | MR_ITS ---
EXAMINATION: MR LUMBAR SPINE WITHOUT CONTRAST CLINICAL INFORMATION: Radiculopathy prior surgery COMPARISON: MRI lumbar spine 10/29/2018 TECHNIQUE: MRI of the lumbar spine was obtained using routine sequences without contrast. FINDINGS: Again noted postoperative changes following instrumented posterior interbody fusion at L5-S1 with solid interbody bone fusion mass at this level. Stable slight grade 1 retrolisthesis at L2-L3 and L3-L4. Straightening of the lumbar lordosis. Vertebral body heights are maintained. There is no suspicious osseous lesion. Multilevel disc desiccation with progressed moderate L4-L5 and mild to moderate L2-L3 disc height loss. New prominent type I Modic endplate change at L4-L5. Decreased type II Modic endplate change at L2-L3, with increased, replaced by type II Modic endplate change. Mild type I/II Modic endplate change at L3-L4. Progression of ventral osteophytic spurring. Level by level detail as follows: L1-L2: No spinal canal or neural foraminal stenosis. L2-L3: Annular disc bulge with increased right eccentric disc osteophyte. No spinal canal stenosis. New minimal right neural foraminal encroachment with patent left neural foramen. L3-L4: Annular disc bulge with increased left subarticular/foraminal disc protrusion. New ventral annular fissure. Mild bilateral facet arthrosis and ligamentum flavum thickening. No spinal canal stenosis. New left subarticular zone narrowing. Increased mild left neural foraminal narrowing with encroachment upon the exiting left L3 nerve root. Patent right neural foramen. L4-L5: Annular disc bulge with new superiorly migrated broad-based left paracentral/subarticular disc extrusion measuring 1.5 cm in craniocaudal dimension. Progressive right lateral disc osteophyte. Mild to moderate bilateral facet arthrosis with ligamentum flavum thickening. Increased mild to moderate left eccentric spinal canal stenosis and leftgreater than right subarticular zone narrowing with new compression of the traversing left L4 and L5 nerve roots and new abutment of the traversing right L5 nerve root. Increased mild bilateral neural foraminal narrowing. L5-S1: Postsurgical changes as above. No spinal canal or neural foraminal stenosis. The conus medullaris terminates at the level of L1-L2. The distal spinal cord is normal in appearance. No epidural fluid collection, hematoma, or mass. No significant abnormalities of the paraspinal musculature. Limited evaluation of the intra-abdominal structures without significant abnormalities. The abdominal aorta is of normal contour and caliber. MR/MR lumbar spine wo con IMPRESSION: 1. Stable postoperative changes following instrumented posterior interbody fusion at L5-S1. 2. At the junctional level of L4-L5, progressive moderate disc height loss with new type I Modic endplate change. New 1.5 cm superiorly migrated broad-based left paracentral/subarticular disc extrusion which contributes to increased mild to moderate left eccentric spinal canal stenosis and left greater than right subarticular zone narrowing. New compression of the traversing left L4 and L5 nerve roots and new abutment of the traversing right L5 nerve root. Increased mild bilateral neural foraminal narrowing. 3. At L3-L4, increased left subarticular/foraminal disc protrusion with new ventral annular fissure. New left subarticular zone narrowing and mild left neural foraminal narrowing with encroachment upon the exiting left L3 nerve root.
== END 2023-07-30 16:56 | disposition home or self-care (01) ==
LOC: HO.MRI 16:55
PROVIDERS: PCP Physician Assistant; Visit Provider Physician Assistant
DX: M54.16 Radiculopathy, lumbar region (principal)
CPT/HCPCS: 72148

== ENCOUNTER 2023-08-21 13:34 | Outpatient (AMB) | payer MEDICARE, MEDICAID, SELFPAY ==
--- NOTE | 2023-08-21 13:35 | HO.SPINEOV ---
Intake Visit Reasons: STAT referral Intake Note: Ms. Cynthia Ocampo is here today c/o back pain MRI done [place] [facility] [place] Flight Reservations Manager Required: No Allergies acetaminophen [ACETAMINOPHEN] Allergy (Unknown, Verified 07/07/23 13:41) ITCHY aspirin [From PERCODAN] Allergy (Unknown, Verified 07/07/23 13:41) RASH ceftriaxone [CEFTRIAXONE] Allergy (Unknown, Verified 07/07/23 13:41) RASH Cephalosporins [CEPHALOSPORINS] Allergy (Unknown, Verified 07/07/23 13:41) Hives, Itching fentanyl [FENTANYL] Allergy (Unknown, Verified 07/07/23 13:41) ANAPHYLAXIS hydromorphone [From DILAUDID] Allergy (Unknown, Verified 07/07/23 13:41) HIVES lorazepam [From ATIVAN] Allergy (Unknown, Verified 07/07/23 13:41) HEADAHCE morphine [MORPHINE] Allergy (Unknown, Verified 07/07/23 13:41) HIVES oxycodone [OXYCODONE] Allergy (Unknown, Verified 07/07/23 13:41) ITCHY penicillin G Allergy (Unknown, Verified 07/07/23 13:41) Itching Penicillins [PENICILLINS] Allergy (Unknown, Verified 07/07/23 13:41) SHORTNESS OF BREATH prednisolone Allergy (Unknown, Verified 07/07/23 13:41) Itching prednisone [PREDNISONE] Allergy (Unknown, Verified 07/07/23 13:41) ANAPHYLAXIS Assessment & Plan Assessment & Plan (1) Lumbar radiculitis: Code(s): M54.16 - Radiculopathy, lumbar region Category: Medical Plan Dear Miah Thank you for referring Mrs Cynthia Ocampo to our office today. She is a very nice 47-year-old female history of previous L5-S1 ALIF presents to the office today for evaluation of back pain radiating down her right leg. She believes that this started sometime around November when she underwent a procedure to remove some coils that were apparently in her fallopian tube as I understand it. They were giving her pain and she had them removed but shortly after the surgery noticed an intense feeling of back pain. It began shooting down her right leg. She has a history of lupus and often does get flare-ups and pain, but this felt different. She had been trying to treat it conservatively with tincture of time, morphine tablets in the evening, lidocaine patches, cyclobenzaprine, Tylenol. Unfortunately these things did not help. To this point she has not done any dedicated conservative treatment in the form of injections because she has allergic to the steroid, and she has not done physical therapy however she is done extensive therapy in the past and this has never yielded significant benefit. In fact she was discharged from physical therapy a number of years ago after her 1st back surgery because they did not feel there was anything more that could benefit her. She understands the exercises and can perform them and tries to stay as active as she can given the amount of pain that she is in. She underwent an MRI showing a large herniated disc fragment at L4-5 on the left amongst other degenerative changes and was sent today see us for an evaluation. She also reports history of neck pain that has been going on for years radiating down her left arm into her left hand. Her whole left arm will feel numb from time to time. Her arm can feel weak as well. PMH: History of depression, asthma, lupus. She has a diagnosis of a seizure disorder, which generally presents as a feeling like water going down her spine, and then her legs can shake. She has never seen a neurologist for this, in generally the symptoms will pass on their own. History of spinal fusion as outlined above, she did well with that procedure and tells me that she recovered quickly. History of 2 C sections, she had a tubal ligation with some kind of coil and ultimately had that removed last year. She has hardware in her left thumb. Denies any history of heart attacks, stroke, cancer, bleeding disorders, liver problems, she does have kidney stones but no kidney dysfunction, previous neck surgery. Social hx: She smokes a few cigarettes a day, she smokes marijuana daily. She does not drink any alcohol use any IV narcotics. Medications: Asthma inhaler, hydroxychloroquine, morphine 15 mg half a tablet at night to help with her pain, Tylenol, lidocaine patch, cyclobenzaprine Allergies: Please see the [employer] Interactive list Physical exam: Awake alert oriented no acute distress, she has full strength of bilateral upper and lower extremities. She has 3+ reflexes in the upper and lower extremities. No clonus in the ankles, no Balbuena's sign. She has a well healed midline abdominal incision, as well as well-healed incisional scars from her laparotomy for removal of the coils Imaging review: She is a lumbar MRI done at [place] showing postsurgical changes at L5-S1 consistent with previous fusion, she has a severely collapsed disc at L4-5 with a large left paracentral extruded disc fragment. There is some milder degeneration at the L2-3 and L3-4 levels. She also has a cervical x-ray with severe disc degeneration from C4-C7. Impression: 47-year-old female history of lupus, previous anterior lumbar interbody fusion at L5-S1 in 2007 at [facility], presents now with severe back pain for 8 months radiating down her right leg. She has a large herniated disc fragment above her fusion at L4-5 consistent with adjacent segment disease. She has given this 8 months to see if it will go away, has tried multiple medications to no effect. She has been discharged from physical therapy years ago because it had stopped helping with her discomfort. She continues to do the exercises, however has not been to formal physical therapy yet. She can not have injections because of her allergies. Overall, Dr. Augustine and I reviewed the films and think she had be a good candidate for surgery. There are 2 ways to go with this procedure, 1 would be to just do a simple microdiskectomy because of her age being so young and avoiding a fusion, with a 2nd option of just going ahead and removing the defective disc and fusing L4-5. I had a discussion about pros and cons of both procedures with the patient and she wishes to be more aggressive in just getting rid of the defective disc as she is very concerned that will continue to bother her if we do not fix it. That certainly seems reasonable. I did explain to her that although she has right leg pain, that disc herniation is on the left. We expect after surgery that she will see improvement in her right leg pain but that it is somewhat atypical and means that there could be lingering pain in that leg after surgery. The procedure of choice would be a left L4-5 transforaminal lumbar interbody fusion with revision of posterior instrumentation. She does have issues with anesthesia, so I told her we can have our anesthesia team speak with her and or do a office visit to review what would be best for her in terms of medications to avoid etc. given her allergies. She did very well with anesthesia when she had had her procedure at [facility] last year so maybe those records could be obtained to assist our anesthesia team. With regard to her cervical spine issues and left arm pain, I will order cervical MRI just to get a baseline because of the amount of degeneration that is seen on her plain film. I can call her with the results of that. I would like her to come back 1 week before her surgical date for her lumbar spine to meet Dr. Augustine. Pt was given risk and benefits of surgery including but not limited to infection, hematoma , nerve injury,durotomy, weakness,bowel/bladder injury, persistent pain, adjacent segment disease as well as the option to continue with conservative treatment and patient wishes to proceed with surgery. Pt is aware they should stop their motrin, aspirin 7 days prior to surgery. All questions were answered to the best of our ability. If there is anything about this patients medical history that we have overlooked or concerns you have about us proceeding with surgery we would appreciate any input you can offer. Thank you for allowing us to care for your patient. The total time spent with this visit with this patient was 45 minutes reviewing history, physical exam, lumbar imaging review, and implementation of treatment plan or further diagnostic testing Camron Augustine MD,PhD [facility] Orders: Orders MR cervical spine wo con Today M54.12 - Radiculopathy, cervical region Coding Level of Care Code New Pt Level 4 (29666) Diagnoses Lumbar radiculitis M54.16
== END 2023-08-21 14:49 | disposition home or self-care (01) ==
PROVIDERS: PCP Physician Assistant; Referring Provider Physician Assistant; Visit Provider Physician Assistant
DX: M54.16 Radiculopathy, lumbar region (principal)
CPT/HCPCS: 99204; 99214

== ENCOUNTER → 2023-08-21 13:34 | Outpatient (BNVA) | payer MEDICARE, MEDICAID, SELFPAY | PROVIDERS: PCP Physician Assistant; Visit Provider Physician Assistant | DX: M54.16 Radiculopathy, lumbar region (principal) | CPT/HCPCS: 99202 ==

== ENCOUNTER 2023-09-03 15:42 | Outpatient (AMB) | payer MEDICARE, MEDICAID, SELFPAY ==
--- NOTE | 2023-09-03 15:49 | A.OFFPC_ITS ---
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: Not Required per policy Accompanied by: Self / Same As Patient Allergies acetaminophen [ACETAMINOPHEN] Allergy (Unknown, Verified 09/03/23 16:15) ITCHY aspirin [From PERCODAN] Allergy (Unknown, Verified 09/03/23 16:15) RASH ceftriaxone [CEFTRIAXONE] Allergy (Unknown, Verified 09/03/23 16:15) RASH Cephalosporins [CEPHALOSPORINS] Allergy (Unknown, Verified 09/03/23 16:15) Hives, Itching fentanyl [FENTANYL] Allergy (Unknown, Verified 09/03/23 16:15) ANAPHYLAXIS hydromorphone [From DILAUDID] Allergy (Unknown, Verified 09/03/23 16:15) HIVES lorazepam [From ATIVAN] Allergy (Unknown, Verified 09/03/23 16:15) HEADAHCE morphine [MORPHINE] Allergy (Unknown, Verified 09/03/23 16:15) HIVES oxycodone [OXYCODONE] Allergy (Unknown, Verified 09/03/23 16:15) ITCHY penicillin G Allergy (Unknown, Verified 09/03/23 16:15) Itching Penicillins [PENICILLINS] Allergy (Unknown, Verified 09/03/23 16:15) SHORTNESS OF BREATH prednisolone Allergy (Unknown, Verified 09/03/23 16:15) Itching prednisone [PREDNISONE] Allergy (Unknown, Verified 09/03/23 16:15) ANAPHYLAXIS Medication List - Last Reconciled 09/03/23 by Miah Mendoza PA-C acetaminophen (Tylenol Extra Strength) 1,000 mg (2 x 500 mg) PO Q6H PRN acetaminophen ER 650 mg PO Q12H 30 days albuterol sulfate 90 mcg/actuation (Ventolin HFA) 1 inh inhalation QID 30 days cyclobenzaprine 10 mg PO BEDTIME 30 days hydroxychloroquine 100 mg PO BID 30 days lidocaine 5% 1 patch topical DAILY 30 days mometasone 100 mcg/actuation (Asmanex HFA) 1 puff inhalation BID 30 days morphine ER 15 mg PO BEDTIME 5 days promethazine 12.5 mg PO TID PRN 5 days Tobacco use date assessed: 07/07/23 Dental Screening Dental Screen Date: 07/07/23 HPI Per PCP F/U HPI Details Patient is a 47-year-old female here today for follow-up visit. Patient has a past medical history significant for major depressive disorder, lupus, fibromyalgia asthma spinal surgeries with hardware placement in 2018. Patient recently having worsening lower lumbar spine pain and has been established with neurosurgeon whom are recommending surgery due to worsening MRI findings and symptoms. She reports she has been having some worsening neck pain. She describes her neck pain as in stable and feels like it will give out and caused her to be paralyzed. She has follow-up with neurosurgeon about the same and will be getting MRI of cervical spine. She has been using cyclobenzaprine and p.r.n. use of morphine with only minimal relief of her pain. She has requesting a 10s unit, referral to acupuncture as alternative pain management. She also needs notes to prove her disability and to have her apartment updated for ADA compliance as she reports there is no handicap accessibility to her apartment. MRI of lumbar spine showing-- > New 1.5 cm superiorly migrated broad-based left paracentral/subarticular disc extrusion which contributes to increased mild to moderate left eccentric spinal canal stenosis and left greater than right subarticular zone narrowing. New compression of the traversing left L4 and L5 nerve roots and new abutment of the traversing right L5 nerve root. Increased mild bilateral neural foraminal narrowing. 3. At L3-L4, increased left subarticula r/foraminal disc protrusion with new ventral annular fissure. New left subarticular zone narrowing and mild left neural foraminal narrowing with encroachment upon the exiting left L3 nerve root. [facility] Medical History (Updated 09/04/23 @ 07:25 by Miah Mendoza PA-C) Seizure-like activity Encounter for Essure implantation Kidney stone Ovarian cyst Chronic fatigue Asthma Osteopenia Lupus Surgical History History of lumbosacral spine surgery Hx of section H/O cervical spine surgery Social History Housing: Apartment Patient Tobacco Use Status: Current everyday Tobacco user Tobacco use type: Cigarette Cigarettes Per Day: 2 e-Cigarette/Vaping Use: Never Used Second Hand Smoke Exposure: No Substance Use Type: Marijuana service: No Current occupational status: disabled Current occupation: rt handed Cognitive needs: No Hearing needs: No Vision needs: No Female Reproductive History Menstrual Age of Menarche: 14 Questionnaire Thrive Questionnaire Date Thrive assessed: 07/07/23 DILEEP-7 AMB Questionnaire DILEEP-7 Date DILEEP - 7 assessed: 07/07/23 Source: Developed by Drs. Daniel Prado, Tamy Fields, John Rai and colleagues, with an educational morgan from [employer]. Review of Systems Const Denies headache(s) Eyes Denies loss of vision ENT Denies vertigo, Denies dizziness, Denies headache(s), Reports neck pain and Denies sore throat Card Denies chest pain, Denies leg edema and Denies lightheadedness Resp Denies cough, Denies hemoptysis and Denies wheezing GI Denies abdominal pain, Denies melena, Denies constipation, Denies diarrhea and Denies vomiting Denies urinary frequency, Denies dysuria and Denies urinary urgency Musc Reports back pain, Reports arthralgias, Denies joint swelling, Reports neck pain, Denies numbness and Denies tingling Neuro Denies Abnormal speech present, Denies behavioral changes, Denies vertigo, Denies dizziness, Denies headache(s), Denies loss of vision, Denies memory loss, Denies numbness and Denies tingling Psych Denies anxiety, Denies behavioral changes, Denies depression, Denies memory loss and Denies panic attacks Juan Manuel/Lymph Denies easy bleeding and Denies easy bruising Aller/Immun Denies wheezing Physical exam (Primary Care) Vital Signs: Last Vital Signs Pulse 56 09/03/23 15:54 BP 126/84 09/03/23 15:54 Pulse Ox 100 09/03/23 15:54 Oxygen Delivery Method Room Air 09/03/23 15:54 BMI result Body Mass Index 29.3 Tobacco/Smoking Status: Tobacco use Status Tobacco use date assessed 07/07/23 09/03/23 15:49 Patient Tobacco Use Status Current everyday Tobacco 09/03/23 15:49 Tobacco use type Cigarette 09/03/23 15:49 e-Cigarette/Vaping Use Never Used 09/03/23 15:49 Thrive Assessment: Date of Thrive Assessment Date Thrive assessed 07/07/23 09/03/23 15:49 Const General: healthy appearing, no acute distress, alert and awake Nutritional Appearance: well nourished Orientation/consciousness: oriented to person, oriented to place and oriented to time HENMT Ears: TM's normal bilaterally General nose exam: Normal nasal mucous membranes and turbinates present Eyes Conjunctivae: conjunctivae normal Sclerae: sclerae normal Pupils: Equal, round and reactive pupils present Neck Neck: Yes no lymphadenopathy and Yes no JVD Thyroid: Thyroid normal Carotids: no bruits Resp Effort & Inspection: normal respiratory effort and not tachypneic Auscultation: no crackles, no rales, no rhonchi and no wheezes Cardio Rate: regular rate Rhythm: regular rhythm Heart sounds: no murmurs and normal S1 and S2 GI Palpation (GI): Soft to palpation, nontender, no hepatomegaly and no splenomegaly Auscultation: normal bowel sounds Skin General skin exam: no rashes or lesions noted and dry skin Neuro General: oriented to person, oriented to place and oriented to time Cranial nerves: Yes Equal, round and reactive pupils present Speech: No Abnormal speech present Gait exam (Neuro): Normal gait present Motor exam (neuro): no tremor noted Extrem Right upper extremity: full ROM Left upper extremity: full ROM Right lower extremity: full ROM; no edema Left lower extremity: full ROM; no edema Psych Mental Status: mental status grossly normal Speech and movement: Normal speech and movement present Affect: normal affect Attitude: cooperative Thought process: Normal thought process present Assessment and Plan Assessment & Plan (1) Cervical radiculopathy: Code(s): M54.12 - Radiculopathy, cervical region Plan: She reports having some worsening neck pain, has been using lidocaine patches given to her by a friend, cyclobenzaprine NSAIDs which have not been helpful. She does use morphine though has side effect of nausea with his medication. Will transition to Robaxin alternative to cyclobenzaprine. She has upcoming MRI on September 07 of her cervical spine to evaluate. * of note she is anticipating getting cervical and lumbar spine surgery done at the same time. She is concerned about complex occasions secondary to her lupus and is reques ting a extended hospital stay. (2) Lumbar radiculitis: Code(s): M54.16 - Radiculopathy, lumbar region (3) Colon cancer screening: Code(s): Z12.11 - Encounter for screening for malignant neoplasm of colon (4) Lupus (systemic lupus erythematosus): Code(s): M32.9 - Systemic lupus erythematosus, unspecified Qualifiers: Systemic lupus erythematosus type: unspecified Systemic lupus erythematosus organ involvement: unspecified Qualified Code(s): M32.9 - Systemic lupus erythematosus, unspecified Plan: Has a history of lupus, has restarted hydroxychloroquine which she reports has really been helping her lupus symptoms. She has some recent skin manifestations she attributes to her lupus that she would like a cream for. Orders: Referrals Cologuard Test Z12.11 - Encounter for screening for malignant neoplasm of colon Medications: New TENS unit electrodes As directed 10 ea 0RF M54.12 - Radiculopathy, cervical region methocarbamol 500 mg PO TID 45 tabs 1RF 15 days M54.12 - Radiculopathy, cervical region TENS units (TENS 502 device) As directed 1 ea 0RF M54.12 - Radiculopathy, cervical region triamcinolone acetonide 0.1% 1 appl topical DAILY 80 grams 0RF 30 days L30.9 - Dermatitis, unspecified Changed From hydroxychloroquine 100 mg PO BID 30 days 60 tabs 3RF M32.9 - Systemic lupus erythematosus, unspecified To hydroxychloroquine 100 mg PO ONCE 30 tabs 3RF 30 days M32.9 - Systemic lupus erythematosus, unspecified Refilled lidocaine 5% leave on most painful area for up to 12 hrs 1 patch topical DAILY 30 ea 2RF For neck pain 30 days M54.2 - Cervicalgia Discontinued cyclobenzaprine Discontinued Reason: Doctor's Order 10 mg PO BEDTIME 30 days 30 tabs 3RF M32.9 - Systemic lupus erythematosus, unspecified Coding Level of Care Code Est Pt Level 4 (50608) Diagnoses Cervical radiculopathy M54.12 Lumbar radiculitis M54.16 Colon cancer screening Z12.11 Systemic lupus erythematosus, unspecified SLE type, unspecified organ involvement status M32.9 Systemic lupus erythematosus type: unspecified Systemic lupus erythematosus organ involvement: unspecified
[2023-09-03 15:54] VITALS: BP 126/84; PULSE 56; O2SAT 100; BMI 29.3
== END 2023-09-03 16:48 | disposition home or self-care (01) ==
PROVIDERS: PCP Physician Assistant; Visit Provider Physician Assistant
DX: M54.12 Radiculopathy, cervical region (principal); M54.16 Radiculopathy, lumbar region; Z12.11 Encounter for screening for malignant neoplasm of colon; M32.9 Systemic lupus erythematosus, unspecified
CPT/HCPCS: 99214

== ENCOUNTER 2023-09-08 19:16 | Outpatient (REF) | payer MEDICARE, MEDICAID, SELFPAY ==
--- NOTE | ~2023-09-08 | MR_ITS ---
EXAMINATION: MR CERVICAL SPINE WITHOUT CONTRAST CLINICAL INFORMATION: Cervical radiculopathy COMPARISON: CT scan of cervical spine on 04/02/2022 TECHNIQUE: MRI of the cervical spine was obtained using routine sequences without contrast. FINDINGS: The visualized cervical vertebrae are intact with normal alignment. No focal bone lesion with abnormal signal can be seen. Evaluation of the intervertebral discs show: C2/C3: Intervertebral disc height is normal, with normal T2 signal. No focal disc herniation is seen. Bilateral C2-C3 neural foramina are patent. Bilateral apophyseal joints are intact with normal alignment. C3/C4: Intervertebral disc height is normal, with normal T2 signal. No focal disc herniation is seen. Bilateral C3-C4 neural foramina are patent. Bilateral apophyseal joints are intact with normal alignment. C4/C5: Intervertebral disc height is normal, with normal T2 signal. Mild broad-based disc bulge is seen. Bilateral C4-C5 neural foramina are patent. Bilateral apophyseal joints are intact with normal alignment. C5/C6: There is mild C5-C6 kyphosis. Intervertebral disc height is markedly decreased, with marked loss of T2 signal. Large sharp anterior bridging syndesmophytes are present. Asymmetric moderate right posterior and lateral disc protrusion markedly effacing the right lateral recess is seen. There are moderate right and mild left C5-C6 neural foramina stenosis. Bilateral apophyseal joints are intact with normal alignment. C6/C7: Intervertebral disc height is markedly decreased, with moderate loss of T2 signal. Mild posterior disc protrusion is seen. There is severe left C6-C7 neural foraminal stenosis due to impingement by uncovertebral joint osteophytes. Bilateral apophyseal joints are intact with normal alignment. C7/T1: Intervertebral disc height is normal, with normal T2 signal. Mild posterior disc protrusion is seen. Bilateral C7-T1 neural foramina are patent. Bilateral apophyseal joints are intact with normal alignment. Cervical spinal cord is normal in position and signal. MR/MR cervical spine wo con IMPRESSION: 1. Unchanged Severe C5-C6 degenerative disc disease with mild C5-C6 kyphosis. Asymmetric moderate right posterior and lateral C5-C6 disc protrusion markedly effacing the right lateral recess. Moderate right and mild left C5-C6 neural foramina stenosis. 2. Unchanged advanced C6-C7 degenerative disc disease with mild posterior disc protrusion. Severe left C6-C7 neural foraminal stenosis due to impingement by uncovertebral joint osteophytes. 3. Mild C4-C5 broad-based disc bulge and mild posterior C7-T1 disc protrusion.
== END 2023-09-08 19:17 | disposition home or self-care (01) ==
LOC: HO.MRI 19:16
PROVIDERS: PCP Physician Assistant; Visit Provider Physician Assistant
DX: M54.12 Radiculopathy, cervical region (principal)
CPT/HCPCS: 72141

== ENCOUNTER 2023-09-18 15:01 | Outpatient (AMB) | payer MEDICARE, MEDICAID, SELFPAY ==
--- NOTE | 2023-09-18 15:21 | HO.SPINEOV ---
Intake Visit Reasons: MRI follow up Intake Note: Ms. Cynthia Merritt, 47 y/o female, here today c/o increased neck pain and f/u MRI. 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 Allergies acetaminophen [ACETAMINOPHEN] Allergy (Unknown, Verified 09/03/23 16:15) ITCHY aspirin [From PERCODAN] Allergy (Unknown, Verified 09/03/23 16:15) RASH ceftriaxone [CEFTRIAXONE] Allergy (Unknown, Verified 09/03/23 16:15) RASH Cephalosporins [CEPHALOSPORINS] Allergy (Unknown, Verified 09/03/23 16:15) Hives, Itching fentanyl [FENTANYL] Allergy (Unknown, Verified 09/03/23 16:15) ANAPHYLAXIS hydromorphone [From DILAUDID] Allergy (Unknown, Verified 09/03/23 16:15) HIVES lorazepam [From ATIVAN] Allergy (Unknown, Verified 09/03/23 16:15) HEADAHCE morphine [MORPHINE] Allergy (Unknown, Verified 09/03/23 16:15) HIVES oxycodone [OXYCODONE] Allergy (Unknown, Verified 09/03/23 16:15) ITCHY penicillin G Allergy (Unknown, Verified 09/03/23 16:15) Itching Penicillins [PENICILLINS] Allergy (Unknown, Verified 09/03/23 16:15) SHORTNESS OF BREATH prednisolone Allergy (Unknown, Verified 09/03/23 16:15) Itching prednisone [PREDNISONE] Allergy (Unknown, Verified 09/03/23 16:15) ANAPHYLAXIS Assessment & Plan Assessment & Plan (1) Cervical spine pain: Code(s): M54.2 - Cervicalgia Category: Medical (2) Lumbar radiculitis: Code(s): M54.16 - Radiculopathy, lumbar region Category: Medical Plan Mrs Cynthia Ocampo is following up today to review her CT scan and MRI of her neck done at [place]. She has had chronic neck pain in addition to the issues with her lumbar spine. The neck pain has been nearly as crippling as the back pain with a herniated disc. She is already scheduled on November 10 for a left-sided approach L4-5 transforaminal lumbar interbody fusion with revision of posterior instrumentation from her previous L5-S1 fusion. I went over that procedure with her again at length reviewing, risks, benefits and recovery. She has numerous allergies but can tolerate narcotics if she has IV Benadryl when she has in the hospital. She had been taking morphine at home with Benadryl. She discontinued that because she did not want to have significant pain issues postoperatively and be desensitized to narcotics. Her cervical MRI shows that she has severe degenerative disc disease at C5-6 and C6-7. This would fit with her complaints of chronic neck pain. Typically this is something Dr. Augustine would treat with anterior cervical diskectomy and fusion. I reviewed that procedure with her, risks, benefits etc.. She is very interested in proceeding with that as well to treat the neck issues. I tentatively gave her a date for surgery in December, but I told her if need to review this with Dr. Augustine to confirm the plan. She is going to come and meet Dr. Augustine week or 2 before her lumbar fusion so this can all be reviewed with her again. Total amount of time spent in this visit was 20 minutes in discussion of symptoms, cervical, lumbar MRI imaging results and subsequent plan of care Camron Augustine MD,PhD [facility] Coding Level of Care Code Est Pt Level 3 (15716) Diagnoses Cervical spine pain M54.2 Lumbar radiculitis M54.16
== END 2023-09-18 15:55 | disposition home or self-care (01) ==
PROVIDERS: PCP Physician Assistant; Visit Provider Physician Assistant
DX: M54.2 Cervicalgia (principal); M54.16 Radiculopathy, lumbar region
CPT/HCPCS: 99213

== ENCOUNTER → 2023-09-18 15:01 | Outpatient (BNVA) | payer MEDICARE, MEDICAID, SELFPAY | PROVIDERS: PCP Physician Assistant; Visit Provider Physician Assistant | DX: M54.2 Cervicalgia (principal); M54.16 Radiculopathy, lumbar region | CPT/HCPCS: 99212 ==

== ENCOUNTER 2023-10-15 14:31 | Outpatient (AMB) | payer MEDICARE, MEDICAID, SELFPAY ==
--- NOTE | 2023-10-15 14:35 | HO.SPINEOV ---
Intake Visit Reasons: Discuss Surgery Intake Note: Ms. Cynthia Ocampo is here today to Discuss Surgery. 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 Allergies acetaminophen [ACETAMINOPHEN] Allergy (Unknown, Verified 10/15/23 14:41) ITCHY aspirin [From PERCODAN] Allergy (Unknown, Verified 10/15/23 14:41) RASH ceftriaxone [CEFTRIAXONE] Allergy (Unknown, Verified 10/15/23 14:41) RASH Cephalosporins [CEPHALOSPORINS] Allergy (Unknown, Verified 10/15/23 14:41) Hives, Itching fentanyl [FENTANYL] Allergy (Unknown, Verified 10/15/23 14:41) ANAPHYLAXIS hydromorphone [From DILAUDID] Allergy (Unknown, Verified 10/15/23 14:41) HIVES lorazepam [From ATIVAN] Allergy (Unknown, Verified 10/15/23 14:41) HEADAHCE morphine [MORPHINE] Allergy (Unknown, Verified 10/15/23 14:41) HIVES oxycodone [OXYCODONE] Allergy (Unknown, Verified 10/15/23 14:41) ITCHY penicillin G Allergy (Unknown, Verified 10/15/23 14:41) Itching Penicillins [PENICILLINS] Allergy (Unknown, Verified 10/15/23 14:41) SHORTNESS OF BREATH prednisolone Allergy (Unknown, Verified 10/15/23 14:41) Itching prednisone [PREDNISONE] Allergy (Unknown, Verified 10/15/23 14:41) ANAPHYLAXIS Assessment & Plan Assessment & Plan (1) Lumbar radiculitis: Code(s): M54.16 - Radiculopathy, lumbar region Category: Medical Plan On 10/15/2023, I saw for preoperative visit Huong Ocampo. She is scheduled to undergo a transforaminal lumbar interbody fusion(TLIF), left-sided approach. We discussed the procedure and I answered all her questions. I spent a total of 15 minutes in his consult. Julio Augustine MD, PhD [facility] Trained Neurosurgeon Director, [facility] Coding Level of Care Code Est Pt Level 2 (12619) Diagnoses Lumbar radiculitis M54.16
== END 2023-10-15 14:55 | disposition home or self-care (01) ==
PROVIDERS: PCP Physician Assistant; Visit Provider Neurological Surgery
DX: M54.16 Radiculopathy, lumbar region (principal)
CPT/HCPCS: 99212

== ENCOUNTER → 2023-10-15 14:31 | Outpatient (BNVA) | payer MEDICARE, MEDICAID, SELFPAY | PROVIDERS: PCP Physician Assistant; Visit Provider Neurological Surgery | DX: M54.16 Radiculopathy, lumbar region (principal) | CPT/HCPCS: 99212 ==

== ENCOUNTER 2023-11-03 13:16 | Outpatient (AMB) | payer MEDICARE, MEDICAID, SELFPAY ==
[2023-11-03 13:20] VITALS: BP 122/72; PULSE 76; O2SAT 96; BMI 29.4
--- NOTE | 2023-11-03 13:20 | MHC.PC.OV ---
Vital Signs 11/03/23 13:20 Height 5 ft 2 in Weight 161 lb BMI 29.4 BP 122/72 Blood Pressure Location Lt brachial Position Sitting Pulse 76 Pulse Source Pulse Oximeter Pulse Oximetry (%) 96 Oxygen Delivery Method Room Air Intake Visit Reasons: Radiculopathy, lumbar region Dr Augustine- see comm Olive Grower Required: No Accompanied by: Self / Same As Patient Allergies fentanyl [FENTANYL] Allergy (Severe, Verified 11/03/23 13:44) ANAPHYLAXIS hydromorphone [From DILAUDID] Allergy (Severe, Verified 11/03/23 13:44) HIVES prednisolone Allergy (Severe, Verified 11/03/23 13:44) Anaphylaxis prednisone [PREDNISONE] Allergy (Severe, Verified 11/03/23 13:44) ANAPHYLAXIS acetaminophen [ACETAMINOPHEN] Allergy (Intermediate, Verified 11/03/23 13:44) ITCHY aspirin [From PERCODAN] Allergy (Intermediate, Verified 11/03/23 13:44) RASH ceftriaxone [CEFTRIAXONE] Allergy (Intermediate, Verified 11/03/23 13:44) RASH Cephalosporins [CEPHALOSPORINS] Allergy (Intermediate, Verified 11/03/23 13:44) Hives, Itching lorazepam [From ATIVAN] Allergy (Intermediate, Verified 11/03/23 13:44) HEADAHCE morphine [MORPHINE] Allergy (Intermediate, Verified 11/03/23 13:44) HIVES oxycodone [OXYCODONE] Allergy (Intermediate, Verified 11/03/23 13:44) ITCHY Penicillins [PENICILLINS] Allergy (Intermediate, Verified 11/03/23 13:44) SHORTNESS OF BREATH/ITCHING Medication List - Last Reconciled 11/03/23 by Danielle Lopez PA-C acetaminophen ER 650 mg PO Q12H 30 days albuterol sulfate 90 mcg/actuation (Ventolin HFA) 1 inh inhalation QID 30 days cyclobenzaprine 10 mg PO BEDTIME diphenhydramine HCl 25 mg PO TID PRN hydroxychloroquine 100 mg PO BID lidocaine 5% 1 patch topical DAILY 30 days mometasone 100 mcg/actuation (Asmanex HFA) 1 puff inhalation BID 30 days TENS unit electrodes As directed TENS units (TENS 502 device) As directed triamcinolone acetonide 0.1% 1 appl topical DAILY 30 days Tobacco use date assessed: 07/07/23 Dental Screening Dental Screen Date: 07/07/23 HPI Radiculopathy, lumbar region Dr Augustine- see comm HPI Details Patient is a 47 year old female with past medical history significant for lupus, fibromyalgia asthma spinal surgeries with hardware placement in 2018 coming in for preop transforaminal lumbar interbody fusion. Patient [place] [facility] 09[place]2023 after an MRI and found to have significant disc degeneration C5-6 and C6-7 and surgery was recommended cervical fusion after lumbar spinal fusion. Patient states she is concerned about the type of anesthesia being used prefer not to use ketamine. She mentioned she deals with back pain every day and has difficulty sleeping at night. She has had general anesthesia in the past along with Benadryl without complication. She has no history of DC, CVA, CHF, or diabetes mellitus. [facility] Medical History Family history of anesthesia complication Back pain DDD (degenerative disc disease), cervical DDD (degenerative disc disease), lumbar Depression Multiple drug allergies Seizure-like activity Kidney stone Ovarian cyst Chronic fatigue Asthma Osteopenia Lupus Surgical History Hx of hand surgery History of surgery Hx of cone biopsy of cervix Hx of lithotripsy History of lumbosacral spine surgery Hx of section Social History Household Members Other:: daughter Housing: Apartment Are you a primary care companion to a significant other at home: No Do you presently have visiting nurse or other home services: No Comment: uses on occasion Patient Tobacco Use Status: Current everyday Tobacco user Tobacco use type: Cigarette Cigarettes Per Day: 2 Years Smoked: 20 Packs per year/per ci.00 e-Cigarette/Vaping Use: Never Used Second Hand Smoke Exposure: No Substance Use Type: Marijuana service: No Current occupational status: disabled Current occupation: rt handed Cognitive needs: No Hearing needs: No Vision needs: No Female Reproductive History Menstrual Age of Menarche: 14 Questionnaire PHQ-9 Over the last 2 weeks, how often have you been bothered by any of the following problems? 1. Little interest or pleasure in doing things: not at all 2. Feeling down, depressed, or hopeless: not at all 3. Trouble falling or staying asleep, or sleeping too much: not at all 4. Feeling tired or having little energy: not at all 5. Poor appetite or overeating: not at all 6. Feeling bad about yourself - or that you are a failure or have let yourself or your family down: not at all 7. Trouble concentrating on things, such as reading the newspaper or watching television: not at all 8. Moving or speaking so slowly that other people could have noticed. Or the opposite - being so fidgety or restless that you have been moving around a lot more than usual: not at all 9. Thoughts that you would be better off or of hurting yourself in some way: not at all Total score: 0 Depression Screening Interpretation: Negative Depression Screening Done: Yes 08829 - PHQ-9 Billing: Yes Source: Developed by Drs. Daniel Prado, Tamy Fields, John Rai and colleagues, with an educational morgan from [employer]. Thrive Questionnaire Date Thrive assessed: 07/07/23 AUDIT C Alcohol Use Questionnaire (AUDIT-C) 1. How often do you have a drink containing alcohol?: Never 3. How often do you have six or more drinks on one occasion?: Never Total Score: 0 DILEEP-7 AMB Questionnaire DILEEP-7 Date DILEEP - 7 assessed: 07/07/23 Source: Developed by Drs. Daniel Prado, Tamy Fields, John Rai and colleagues, with an educational morgan from [employer]. Review of Systems Const Denies body aches, Denies chills, Denies fever(s), Denies headache(s) and Denies poor appetite Eyes Reports no additional complaints ENT Denies dysphagia, Denies dizziness, Denies headache(s) and Denies odynophagia Card Denies chest pain, Denies syncope, Denies edema, Denies irregular heart rhythm, Denies lightheadedness and Denies dyspnea Resp Denies cough and Denies dyspnea GI Denies abdominal pain, Denies constipation, Denies dysphagia, Denies diarrhea, Denies nausea, Denies odynophagia and Denies vomiting Reports no additional complaints Musc Reports no additional complaints and Denies abnormal gait Skin/Breast Reports system reviewed and no additional complaints, except as documented Neuro Denies abnormal gait, Denies dizziness, Denies syncope and Denies headache(s) Psych Reports no additional complaints Physical exam (Primary Care) Vital Signs: Last Vital Signs Pulse 76 11/03/23 13:20 BP 122/72 11/03/23 13:20 Pulse Ox 96 11/03/23 13:20 Oxygen Delivery Method Room Air 11/03/23 13:20 BMI result Body Mass Index 29.4 Tobacco/Smoking Status: Tobacco use Status Tobacco use date assessed 07/07/23 11/03/23 13:24 Patient Tobacco Use Status Current everyday Tobacco 11/03/23 13:24 Tobacco use type Cigarette 11/03/23 13:24 e-Cigarette/Vaping Use Never Used 11/03/23 13:24 PHQ-9: PHQ-9 Score PHQ-9: Total score 0 11/03/23 13:24 Depression Screening Interpretation: Negative Thrive Assessment: Date of Thrive Assessment Date Thrive assessed 07/07/23 11/03/23 13:24 Const General: cooperative, healthy appearing, comfortable and no acute distress Orientation/consciousness: patient oriented x3 HENMT Head: Yes normocephalic Ears: hearing grossly normal bilaterally General nose exam: Normal external nose present Eyes General: appearance normal, both eyes and all related structures Conjunctivae: conjunctivae normal Neck Neck: Yes full ROM and Yes no lymphadenopathy Resp Effort & Inspection: normal respiratory effort Auscultation: clear to auscultation bilaterally, no crackles, no rales, no rhonchi and no wheezes Cardio Rate: regular rate Rhythm: regular rhythm Skin General skin exam: no rashes or lesions noted Neuro General: patient oriented x3 Gait exam (Neuro): Normal gait present Extrem General: Yes normal to inspection, Yes full ROM and No edema Psych Affect: normal affect Attitude: cooperative Insight: Good insight present (Psych) Judgement: Good judgement present (Psych) Assessment and Plan Assessment & Plan (1) Pre-op evaluation: Code(s): Z01.818 - Encounter for other preprocedural examination Plan: Regarding preop clearance, the patient is at moderate risk for proposed surgery due to immunosuppression contributing to increased risk of infection and delayed wound healing.?Reviewed with the patient that no surgery is completely free of risk and that this examination is to assist the surgeon in reviewing informed consent. Patient is not currently on any blood thinners, NSAIDs, or antiplatelet medications. Advised patient to reach out to surgeon and/or anesthesiologist with concerns regarding type of anesthesia being used. She will address these concerns with the surgeon. Also concerned about her mobility postoperatively and notes it would be beneficial for her to have a wheelchair to assist with mobility, prescription sent today. She is also in the process of getting a MUCK OPERATOR but feels it may be helpful postoperatively to have a visiting nurse for assistance with ADLs. Referral placed today. Plan This note was constructed using voice recognition software. While every effort has been made to ensure accuracy and assistant activities director, still areas may have been included sometimes these areas may affect the content or meeting of the given symptoms. Total time spent caring for the patient today was 30 minutes. This includes time spent before the visit reviewing the chart, time spent during the visit, and time spent after the visit and documentation. Orders: Referrals Dermatology Referral L30.9 - Dermatitis, unspecified Optometry Referral Z00.00 - Encounter for general adult medical examination without abnormal findings [facility]Hospice Referral M54.16 - Radiculopathy, lumbar region Medications: New [wheelchair] As directed 1 ea 0RF Coding Level of Care Code Est Pt Level 3 (79054) Diagnoses Pre-op evaluation Z01.818
== END 2023-11-03 14:12 | disposition home or self-care (01) ==
PROVIDERS: PCP Physician Assistant
DX: Z01.818 Encounter for other preprocedural examination (principal); M54.16 Radiculopathy, lumbar region
CPT/HCPCS: 99214

== ENCOUNTER 2023-11-11 08:09 | Inpatient (IN) | payer MEDICARE, MEDICAID, SELFPAY ==
--- NOTE | 2023-10-28 | ECG_ITS ---
Test Reason : PRE OP Blood Pressure : / mmHG Vent. Rate : 055 BPM Atrial Rate : 055 BPM P-R Int : 118 ms QRS Dur : 088 ms QT Int : 414 ms P-R-T Axes : 054 041 036 degrees QTc Int : 396 ms Sinus bradycardia Otherwise normal ECG When compared with ECG of 02-APR-2022 12:41, Heart rate has decreased Referred By: Maite Mejia Electronically Signed By:MANUELA BAKER
[2023-10-28 10:29] VITALS: BMI 29.6
[2023-10-28 10:35] VITALS: BP 117/73; PULSE 66; RESP 20; O2SAT 100
[2023-10-28 12:11] LABS: Hematocrit 35.4 % (37.0-47.0); Mean Corpuscular HGB Conc 33.9 g/dl (31.0-35.0); Mean Corpuscular Hemoglobin 32.5 pg (27.0-33.0); Mean Corpuscular Volume 95.9 fL (80.0-98.0); Mean Platelet Volume 11.3 fL (9.4-12.3); Platelet Count 195 X10*3/uL (160-400); Red Blood Count 3.69 X10*6/uL (4.20-5.50); Red Cell Distribution Width 13.3 % (11.0-16.0)
[2023-10-28 12:40] LABS: Anion Gap 10 (12-20); Blood Urea Nitrogen 10 mg/dL (9-16); Calcium 9.2 mg/dL (8.4-10.2); Carbon Dioxide 25 mmol/L (22-29); Chloride 109 mmol/L (96-108); Creatinine Clr Calc Pharmacy 85.4; Estimated Glomerular Filt Rate > 60; Glucose Random 87 mg/dL (60-115); Potassium 4.1 mmol/L (3.3-5.1); Sodium 140 mmol/L (135-145)
[2023-11-11] VITALS (19 sets, daily range): BP systolic 104–135; BP diastolic 55–89; PULSE 59–91; RESP 14–25; TEMP 36.1–36.7; O2SAT 96–100; BMI 30.1; BMI 32.9
--- NOTE | ~2023-11-11 | FL_ITS ---
EXAMINATION: INTRAOPERATIVE FLUOROSCOPY LUMBAR SPINE CLINICAL INFORMATION: L4-L5 Transforaminal Lumbar Interbody fusion. COMPARISON: MR lumbar spine 07/30/2023. TECHNIQUE: Intraoperative fluoroscopic imaging was provided to Dr. Julio Augustine during L4-L5 Transforaminal Lumbar Interbody fusion. Total radiographic images: 2. Exposure time: 50 seconds. Dose area product: 5.6649 Gy-cm2 CT performed intraoperatively: No. FINDINGS/ FL/FL guidance in OR IMPRESSION: Multiple intraoperative fluoroscopic images and/or radiographs demonstrate posterior pedicular screws at L4-L5 with interbody device along with pedicular screws in S1. Electronically signed by: Arnulfo Martin MD 11/12/2023 06:22 PM EDT
[2023-11-11 08:34] LABS: UPreg QC Valid YES; Urine Pregnancy NEGATIVE (NEGATIVE)
[2023-11-11] MEDS: Lactated Ringers 1,000 ML 100 ML IVCONT (09:05)
[2023-11-11] MEDS: methocarbamoL 750 MG TABLET PO (09:18)
--- NOTE | 2023-11-11 09:38 | MHC.SHP ---
Pre-Procedural Eval Section A - 24 Hr Update-Section A only Date of Service: 11/11/23 The patient is an INPATIENT: Yes Section B - Complete if H&P > 30 days Chief Complaint: s/p L4-5 TLIF Allergies: Allergies Allergy/AdvReac Type Severity Reaction Status Date / Time fentanyl [FENTANYL] Allergy Severe ANAPHYLAXIS Verified 11/03/23 13:44 hydromorphone [From DILAUDID] Allergy Severe HIVES Verified 11/03/23 13:44 prednisolone Allergy Severe Anaphylaxis Verified 11/03/23 13:44 prednisone [PREDNISONE] Allergy Severe ANAPHYLAXIS Verified 11/03/23 13:44 acetaminophen [ACETAMINOPHEN] Allergy Intermediate ITCHY Verified 11/03/23 13:44 aspirin [From PERCODAN] Allergy Intermediate RASH Verified 11/03/23 13:44 ceftriaxone [CEFTRIAXONE] Allergy Intermediate RASH Verified 11/03/23 13:44 Cephalosporins Allergy Intermediate Hives, Verified 11/03/23 13:44 [CEPHALOSPORINS] Itching lorazepam [From ATIVAN] Allergy Intermediate HEADAHCE Verified 11/03/23 13:44 morphine [MORPHINE] Allergy Intermediate HIVES Verified 11/03/23 13:44 oxycodone [OXYCODONE] Allergy Intermediate ITCHY Verified 11/03/23 13:44 Penicillins [PENICILLINS] Allergy Intermediate SHORTNESS Verified 11/03/23 13:44 OF BREATH/ITCHING Review of Systems Sugical H&P ROS: Negative: Constitution, Cardiovascular, Respiratory, Neurological, Psychiatric, Hem-Onc, Allergic/Immunologic, Gastrointestinal, Genitourinary, Musculoskeletal, Integumentary, Endocrine and Eyes/Ears/Nose/Throat Exam Surgical H&P Exam: Normal: HEENT, Normal: Heart, Normal: Lungs, Normal: Extremities, Normal: Abdomen, Normal: Skin and Normal: Neurological (awake, alert) Plan Diagnosis/Plan: Unchanged I have reviewed the history and physical and performed a pertinent physical examination on my patient. No changes have occurred unless specified. TLIF L4-5, left side approach and revision posterior instrumentation Time Spent With Patient Time: Total time managing care of this patient today ____ minutes.
[2023-11-11] MEDS: diphenhydrAMINE HCL 50 MG/ML VIAL 25 MG IVPUSH (09:41)
[2023-11-11] MEDS: vancomycin HCL 1,000 MG in 0.9 % Sodium Chloride 250 ML 270 MG IV ×2 (09:47→23:22)
--- NOTE | 2023-11-11 10:00 | P.CONAN_ITS ---
Documented by User: Maite Mejia NP 10/28/23 14:06 HPI - Anesthesia Eval Consult details Narrative: 47yo F for L4-5 Transforaminal Lumbar Interbody Fuse and revision of Posterior Instrumentation, 11/11/23 Multiple drug allergies: Morphine, tylenol, and oxycodone tolerated with p remedicated with benadryl DOES NOT TOLERATE: Fentanyl, dilaudid, Steroids 11/2022 Surgical Procedure at [facility]. Anesthesia record shows patient tolerated: Benadryl 25, Midaz 2, Propofol 100, Ketamine 20, Lido 50, Fentanyl 200, Ketorolac 15, Rocuronium 60, Dexamethasone 4mg, Zofran 4, Suggamadex 300, Gent/Flagyl Case reviewed with Dr Magallon. Plan for morphine, ketamine, dex. Preop benadryl ordered. Lupus: plaquinel Asthma: scheduled asmanex BID, abluterol BID prophylactic (no asthma symptoms) Focal seizure activity: No outward symptoms Cervical disc disease with plan for surgery 12/2023 [facility] Active Problems Active Problems: All Active Problems Dermatitis (Acute) Colon cancer screening (Acute) Lumbar radiculitis (Acute) Cervical radiculopathy (Acute) Tobacco dependence (Acute) Screening for diabetes mellitus (DM) (Acute) COVID (Acute) Immunodeficiency (Acute) MDD (major depressive disorder), recurrent episode, moderate (Acute) Cervical spine pain (Acute) Lupus (systemic lupus erythematosus) (Acute) Chronic pain syndrome (Acute) Galactorrhea (Acute) Ganglion cyst of volar aspect of left wrist (Acute) Left carpal tunnel syndrome (Acute) De Quervain's tenosynovitis, left (Acute) Breast tenderness (Acute) Breast cyst (Acute) disorder (Acute) Bleeding from nipple in female (Acute) Left genital labial abscess (Acute) Asthma (Acute) Past Medical History Medical History (Updated 11/11/23 @ 08:28 by Sneha Wolff RN) Seizure Family history of anesthesia complication Back pain DDD (degenerative disc disease), cervical DDD (degenerative disc disease), lumbar Depression Multiple drug allergies Seizure-like activity Kidney stone Ovarian cyst Chronic fatigue Asthma Osteopenia Lupus Surgical History Surgical History Hx of hand surgery History of surgery Hx of cone biopsy of cervix Hx of lithotripsy History of lumbosacral spine surgery Hx of section Social History Social History Household Members Other:: daughter Housing: Apartment Are you a primary health and social care teacher to a significant other at home: No Do you presently have visiting nurse or other home services: No Comment: uses on occasion Patient Tobacco Use Status: Current everyday Tobacco user Tobacco use type: Cigarette Cigarettes Per Day: 2 Years Smoked: 20 e-Cigarette/Vaping Use: Never Used Second Hand Smoke Exposure: No Use of substances other than those prescribed or required for medical reasons: Yes Substance Use Type: Marijuana Substance Use Type Other:: smokes it daily Substance Use Frequency: Daily Have you been hit, kicked, punched, or otherwise hurt by someone within the past year? If so, by whom?: No Are you DNR?: No Advance Directives: No (daughter is primary contact) Advance Directives Information Provided: Yes Advance Directives on File: No Recently lost weight without trying: No Eating poorly because of decreased appetite: No Nutrition Risks: No Nutritional Risk Patient : No FDLMP: 10/04/23 : No Poor oral hygiene: No service: No Current occupational status: disabled Current occupation: rt handed Cognitive needs: No Hearing needs: No Vision needs: No Meds Allergies Allergy/AdvReac Type Severity Reaction Status Date / Time fentanyl [FENTANYL] Allergy Severe ANAPHYLAXIS Verified 11/03/23 13:44 hydromorphone [From DILAUDID] Allergy Severe HIVES Verified 11/03/23 13:44 prednisolone Allergy Severe Anaphylaxis Verified 11/03/23 13:44 prednisone [PREDNISONE] Allergy Severe ANAPHYLAXIS Verified 11/03/23 13:44 acetaminophen [ACETAMINOPHEN] Allergy Intermediate ITCHY Verified 11/03/23 13:44 aspirin [From PERCODAN] Allergy Intermediate RASH Verified 11/03/23 13:44 ceftriaxone [CEFTRIAXONE] Allergy Intermediate RASH Verified 11/03/23 13:44 Cephalosporins Allergy Intermediate Hives, Verified 11/03/23 13:44 [CEPHALOSPORINS] Itching lorazepam [From ATIVAN] Allergy Intermediate HEADAHCE Verified 11/03/23 13:44 morphine [MORPHINE] Allergy Intermediate HIVES Verified 11/03/23 13:44 oxycodone [OXYCODONE] Allergy Intermediate ITCHY Verified 11/03/23 13:44 Penicillins [PENICILLINS] Allergy Intermediate SHORTNESS Verified 11/03/23 13:44 OF BREATH/ITCHING Home Medications ?Medication ?Instructions ?Recorded ?Confirmed ?Last Taken ?Type cyclobenzaprine 10 mg tablet 10 mg PO DAILY muscle spasm 10/28/23 11/11/23 11/11/23 07:00 History diphenhydramine HCl 25 mg tablet 25 mg PO TID PRN medication 10/28/23 11/03/23 11/10/23 History allergies hydroxychloroquine 100 mg tablet 100 mg PO BID 10/28/23 11/11/23 11/11/23 07:00 History mometasone 100 mcg/actuation HFA 1 puff inhalation DAILY PRN sob 11/11/23 11/11/23 11/10/23 History aerosol inhaler (Asmanex HFA) Exam Height,Weight and Vital Signs: Height 5 ft 2 in Weight 73.482 kg Last Vital Signs Pulse 66 10/28/23 10:35 Resp 20 10/28/23 10:35 BP 117/73 10/28/23 10:35 Pulse Ox 100 10/28/23 10:35 O2 Del Method Room Air 10/28/23 10:35 Pertinent Lab Results Pertinent Lab Results: Lab Results 10/28/23 Range/Units 11:32 WBC 6.0 (4.8-10.8) X10*3/uL RBC 3.69 L (4.20-5.50) X10*6/uL Hgb 12.0 (12.0-16.0) g/dl Hct 35.4 L (37.0-47.0) % MCV 95.9 (80.0-98.0) fL MCH 32.5 (27.0-33.0) pg MCHC 33.9 (31.0-35.0) g/dl RDW 13.3 (11.0-16.0) % Plt Count 195 (160-400) X10*3/uL MPV 11.3 (9.4-12.3) fL Absolute Nucleated RBC 0.000 (0.0-0.012) X10*3/uL Nucleated RBC % (auto) 0.0 (0.0-0.2) /100WBC Sodium 140 (135-145) mmol/L Potassium 4.1 (3.3-5.1) mmol/L Chloride 109 H (96-108) mmol/L Carbon Dioxide 25 (22-29) mmol/L Anion Gap 10 L (12-20) BUN 10 (9-16) mg/dL Creatinine 0.78 (0.5-1.4) mg/dL Estim Creat Clear Calc 85.4 Estimated GFR > 60 Random Glucose 87 (60-115) mg/dL Calcium 9.2 (8.4-10.2) mg/dL Narrative Narrative: EKG 10/2023 Vent. Rate : 055 BPM Atrial Rate : 055 BPM P-R Int : 118 ms QRS Dur : 088 ms QT Int : 414 ms P-R-T Axes : 054 041 036 degrees QTc Int : 396 ms Sinus bradycardia Otherwise normal ECG When compared with ECG of 02-APR-2022 12:41, No significant change was found Airway Mallampati Class: II TM Dist: >3cm Neck ROM: Limited Loose/Missing/Broken Teeth: No Heart: RRR Lungs: CTAB Assessment and Plan Assessment Anesthesia Assessment: Anesthesia Plan Discussed, Smoking Cess. Discussed and PAT Visit Documented by User: Yolanda Silvestre DO 11/11/23 10:02 [facility] Past Medical History Medical History (Updated 11/11/23 @ 08:28 by Sneha Wolff RN) Seizure Family history of anesthesia complication Back pain DDD (degenerative disc disease), cervical DDD (degenerative disc disease), lumbar Depression Multiple drug allergies Seizure-like activity Kidney stone Ovarian cyst Chronic fatigue Asthma Osteopenia Lupus Family History Family history of problems with anesthesia: No Surgical History Surgical History Hx of hand surgery History of surgery Hx of cone biopsy of cervix Hx of lithotripsy History of lumbosacral spine surgery Hx of section History of Problems with Anesthesia: No Social History Social History Household Members Other:: daughter Housing: Apartment Are you a primary health and social care teacher to a significant other at home: No Do you presently have visiting nurse or other home services: No Comment: uses on occasion Patient Tobacco Use Status: Current everyday Tobacco user Tobacco use type: Cigarette Cigarettes Per Day: 2 Years Smoked: 20 e-Cigarette/Vaping Use: Never Used Second Hand Smoke Exposure: No Use of substances other than those prescribed or required for medical reasons: Yes Substance Use Type: Marijuana Substance Use Type Other:: smokes it daily Substance Use Frequency: Daily Have you been hit, kicked, punched, or otherwise hurt by someone within the past year? If so, by whom?: No Are you DNR?: No Advance Directives: No (daughter is primary contact) Advance Directives Information Provided: Yes Advance Directives on File: No Recently lost weight without trying: No Eating poorly because of decreased appetite: No Nutrition Risks: No Nutritional Risk Patient : No FDLMP: 10/04/23 : No Poor oral hygiene: No service: No Current occupational status: disabled Current occupation: rt handed Cognitive needs: No Hearing needs: No Vision needs: No Meds Allergies Allergy/AdvReac Type Severity Reaction Status Date / Time fentanyl [FENTANYL] Allergy Severe ANAPHYLAXIS Verified 11/03/23 13:44 hydromorphone [From DILAUDID] Allergy Severe HIVES Verified 11/03/23 13:44 prednisolone Allergy Severe Anaphylaxis Verified 11/03/23 13:44 prednisone [PREDNISONE] Allergy Severe ANAPHYLAXIS Verified 11/03/23 13:44 acetaminophen [ACETAMINOPHEN] Allergy Intermediate ITCHY Verified 11/03/23 13:44 aspirin [From PERCODAN] Allergy Intermediate RASH Verified 11/03/23 13:44 ceftriaxone [CEFTRIAXONE] Allergy Intermediate RASH Verified 11/03/23 13:44 Cephalosporins Allergy Intermediate Hives, Verified 11/03/23 13:44 [CEPHALOSPORINS] Itching lorazepam [From ATIVAN] Allergy Intermediate HEADAHCE Verified 11/03/23 13:44 morphine [MORPHINE] Allergy Intermediate HIVES Verified 11/03/23 13:44 oxycodone [OXYCODONE] Allergy Intermediate ITCHY Verified 11/03/23 13:44 Penicillins [PENICILLINS] Allergy Intermediate SHORTNESS Verified 11/03/23 13:44 OF BREATH/ITCHING Home Medications ?Medication ?Instructions ?Recorded ?Confirmed ?Last Taken ?Type cyclobenzaprine 10 mg tablet 10 mg PO DAILY muscle spasm 10/28/23 11/11/23 11/11/23 07:00 History diphenhydramine HCl 25 mg tablet 25 mg PO TID PRN medication 10/28/23 11/03/23 11/10/23 History allergies hydroxychloroquine 100 mg tablet 100 mg PO BID 10/28/23 11/11/23 11/11/23 07:00 History mometasone 100 mcg/actuation HFA 1 puff inhalation DAILY PRN sob 11/11/23 11/11/23 11/10/23 History aerosol inhaler (Asmanex HFA) Exam Exam Date and Time: 11/11/23 1000 Height,Weight and Vital Signs: Height 5 ft 2 in Weight 73.482 kg Last Vital Signs Pulse 66 10/28/23 10:35 Resp 20 10/28/23 10:35 BP 117/73 10/28/23 10:35 Pulse Ox 100 10/28/23 10:35 O2 Del Method Room Air 10/28/23 10:35 Vital Signs Pulse Rate 66 10/28/23 10:35 Respiratory Rate 20 10/28/23 10:35 Blood Pressure 117/73 10/28/23 10:35 Pulse Oximetry 100 10/28/23 10:35 Oxygen Delivery Method Room Air 10/28/23 10:35 Temperature 98.0 F 11/11/23 08:50 Pulse Rate 59 11/11/23 08:50 Respiratory Rate 16 11/11/23 08:50 Blood Pressure 117/59 L 11/11/23 08:50 Pulse Oximetry 99 11/11/23 08:50 Oxygen Delivery Method Room Air 11/11/23 08:50 Airway Mallampati Class: III (small mouth opening) TM Dist: >3cm Neck ROM: Limited Loose/Missing/Broken Teeth: No (patient denies any loose or broken teeth) Heart: S1S2 Assessment and Plan Assessment Anesthesia Assessment: Anesthesia Plan Discussed and Chart Reviewed Final Anesthetic Review Family History of Problems with Anesthesia: No History of Problems with Anesthesia: No NPO: Yes ASA Class: III Final Preanesthetic Review: No Changes in Pt Med Stat, Meds/Allgs Chart Reviewed, Consent Obtained/Reviewed and Anes Risks/Benef Reviewed Patient Risk: Intermediate Procedure Risk: Intermediate Anesthetic Plan Anesthetic Plan: GA and Agree w/ Assess. and Plan Disposition: Standard PACU
--- NOTE | 2023-11-11 13:23 | P.OP_ITS ---
Operative Note Operative Note Date of Service: 11/11/23 Narrative: Preop diagnosis: Adjacent degenerative disc disease after L5-S1 fusion with disc herniation compressing the left L4 and L5 nerve roots; Lumbar radiculopathy; back pain. Postop diagnosis: Same Procedure: Left L4-5 Complete facetectomy; Diskectomy, arthrodesis and implantation cage; revision posterior instrumentation with extension of the previous L5-S1 instrumentation to L4; combination of allograft and allograft Consent Informed Consent was obtained for this operation. I have explained the nature, purpose and benefits of the operation. I have discussed the risks and benefit of the operation including possible complications or adverse events with patient/family. Alternative(s) were discussed with the patient with their relative benefits and risks as well as the consequences of not accepting the operation were included in obtaining consent. Surgeon: Julio Augustine MD, PhD Assist: roc Shelton Description of Procedure: This patient had a previous L5-S1 fusion done in another institution. She presented with back pain and left leg pain due to adjacent degenerative disc disease L4-5 with a large disc herniation compressing the left L5 and L4 nerve roots. The patient was offered a transforaminal lumbar interbody fusion with removal of the disc herniation and revision of posterior instrumentation with extension of the instrumentation to L4. The procedure and complications were ex plained. The patient was consented. The patient was brought to the operating room endotracheally intubated. The patient was turned in a prone position the Sesar spine table prepping and draping was done followed by time-out. Two C arms were installed for fluoroscopy. The previous paramedian incisions were opened to expose the previous placed L5-S1 instrumentation. The locking caps and rods were removed. The next plan was to remove the previous placed screws but the removal set did not have the correct size. We decided to place new L4 screws and connect them to the old instrumentation. The following steps were taken for pedicle screw placement: First the pediguard tap was used to create a transpedicular trajectory into the vertebral body. Then a K-wire was advanced into the vertebral body. On the contralateral side, a specially designed instrument was advanced over the K-wire, followed by placement of a pedicle screw in the corresponding L4 pedicle and removal of the K-wire. On the ipsilateral side, the K-wire was bent out of the way after which the transforaminal interbody fusion process was started. The paravertebral muscles were released to expose the L4-5 lamina and facet joint. A high-speed drill was used to a complete facetectomy. The nerve root was retracted medially after which a thorough L4-5 diskectomy was done. The disc herniation was also seen and removed from under the thecal sac and medial from the L4 and L5 nerve roots. A good decompression of the nerve roots was obtained. An 8 mm trial implant was inserted. More disc material was removed. The endplates were prepared. The anterior 1/3 of disc space was filled with a mixture of autograft and allograft followed by placement of a 8 mm by 28 mm and 0 degree lordosis CTL titanium cage filled with autograft and allograft ending in the the midline on AP fluoroscopic image. Hemostasis was done. The retractor was removed. Finally, the left L4 pedicle screws was inserted over the K-wire and the K-wire was removed. The newly placed L4 screws were connected to the previous L5 screws with a 40 mm adri and locked down with locking caps. Final x-rays in AP and lateral projection showed good position of the interbody device and posterior instrumentation. Hemostasis was done and the incisions were closed with an 0 Vicryl to fascia and a 3-0 Vicryl for the subdermal layer. All sponge and needle counts were correct. Patient was extubated and transported in a stable condition to recovery room. This procedure was done with assistance of her physician back office medical assistant who helped an wood drilling machine operator in the fluoroscopic imaging, placed pedicle screws and performed hemostasis and closure of the incisions. Anesthesia: General Estimated blood loss: 80 mL Complications: None. Deposition: Admit to inpatient for observation.
[2023-11-11] MEDS: Morphine Sulfate 2 MG/ML CARTRIDGE IVPUSH ×2 (14:48→15:08)
[2023-11-11] MEDS: Morphine Sulfate 2 MG/ML CARTRIDGE 4 MG IVPUSH ×2 (15:27→15:55)
[2023-11-11] MEDS: Acetaminophen 1,000 MG/100 ML PIGGYBACK 400 MG IV (17:28)
[2023-11-11] MEDS: Ketorolac Tromethamine 15 MG/ML VIAL IVPUSH ×2 (17:29→23:21)
[2023-11-11] MEDS: 0.9 % Sodium Chloride 1,000 ML 75 ML IVCONT (17:33)
--- NOTE | 2023-11-11 18:43 | PHA.MEDREC ---
Pharmacy Consult ? Medication Reconciliation Pharmacy has completed the medication reconciliation. Reviewed med rec done by nursing
[2023-11-11] MEDS: Morphine Sulfate Immed Release 15 MG TABLET 30 MG PO (21:10)
[2023-11-11] MEDS: Docusate Sodium 100 MG CAPSULE PO (21:10)
[2023-11-11] MEDS: diphenhydrAMINE HCL 25 MG CAPSULE PO (23:29)
[2023-11-12] MEDS: Acetaminophen 1,000 MG/100 ML PIGGYBACK 400 MG IV (01:16)
[2023-11-12] MEDS: 0.9 % Sodium Chloride 1,000 ML 75 ML IVCONT (03:43)
[2023-11-12 03:46] VITALS: BP 118/65; PULSE 78; RESP 20; TEMP 36.5; O2SAT 99
[2023-11-12] MEDS: Ketorolac Tromethamine 15 MG/ML VIAL IVPUSH (05:50)
[2023-11-12 07:08] VITALS: BP 126/81; PULSE 82; RESP 20; TEMP 36.5; O2SAT 100
--- NOTE | 2023-11-12 07:30 | P.DS_ITS ---
DS: Providers Provider Date of Service: 11/12/23 Date of admission: 11/11/23 08:09 Primary care physician: Miah Mendoza PA-C DS: Summary Time Attestation Discharge Coordination Time (in mins): 15 Quality: Safe Use of Opioids Does Pt have an Active Cancer Diagnosis on the Problem List?: No Quality: Stroke Does the patient have a stroke diagnosis?: No Physical Exam Vital Signs: Vital Signs: Last Vital Signs Temp 97.7 F 11/12/23 07:08 Pulse 82 11/12/23 07:08 Resp 20 11/12/23 07:08 BP 126/81 11/12/23 07:08 Pulse Ox 100 11/12/23 07:08 O2 Del Method Nasal Cannula 11/12/23 07:08 O2 Flow Rate 2 11/12/23 07:08 BMI result Body Mass Index 32.9 DS: Data Data Completed and Pending Labs on day of discharge: Laboratory Results - last 24 hr 11/11/23 11/11/23 08:15 09:09 Urine Test NEGATIVE Blood Type O Positive Antibody Screen NEGATIVE Discharge Plan Discharge Anticipated Discharge Date/Time: 11/12/23 07:31 Patient Disposition: Home, Self-Care Discharge Diagnosis: s/p L4-5 TLIF Referrals: Miah Mendoza PA-C [Primary Care Provider] - 1 Week Discharge Medications: New morphine 15 mg tablet 15 mg PO Q6H PRN (Reason: severe pain (scale score 7-10)) Qty: 30 0RF Rx Instructions: Partial Fill upon patient request. diphenhydramine HCl [Benadryl] 25 mg capsule 25 mg PO TID PRN (Reason: allergic symptoms) Qty: 30 0RF Continued acetaminophen 650 mg tablet extended release 650 mg PO Q12H 30 Days Qty: 60 0RF albuterol sulfate [Ventolin HFA] 90 mcg/actuation HFA aerosol inhaler 1 inh inhalation QID 30 Days Qty: 8.5 3RF cyclobenzaprine 10 mg tablet 10 mg PO DAILY hydroxychloroquine 100 mg tablet 100 mg PO BID Asmanex HFA 100 mcg/actuation HFA aerosol inhaler 1 puff inhalation DAILY PRN (Reason: sob) (DME) TENS 502 Device See Rx Instructions .Route Qty: 1 0RF Rx Instructions: As directed (DME) TENS unit electrodes Pad See Rx Instructions .Route Qty: 10 0RF Rx Instructions: As directed triamcinolone acetonide 0.1 % cream 1 appl topical DAILY 30 Days Qty: 80 0RF (DME) wheelchair See Rx Instructions .Route .MEDSUPPLY Qty: 1 0RF Rx Instructions: As directed Held diphenhydramine HCl 25 mg Tablet 25 mg PO TID PRN (Reason: medication allergies) Hold Instructions: Resume on 12/12/23. use prescribed medication lidocaine 5 % adhesive patch,medicated 1 patch topical DAILY 30 Days Qty: 30 2RF Hold Instructions: Resume on 12/12/23. Rx Instructions: leave on most painful area for up to 12 hrs Discharge Orders: Discharge Order (Routine); Ordered 11/12/23 Ordered By: Damian Lopes Diet: Advance to usual diet Activity on Discharge: As tolerated Stand Alone Forms: Patient Portal Discharge page Print Language: Malian Activity Restrictions/Additional Instructions: After your spinal surgery we ask you to observe the following restrictions/guidelines: Activity: With lumbar fusion surgery it is normal to have days in the first couple of weeks where you have increased leg pain. This usually lasts 1-2 days and self resolves with the continuation of medication. Attempt to stay mobile and continue activity as tolerated. It is normal to feel some discomfort as you increase your activity, but that will improve with time. We ask you avoid heavy lifting or activities that cause pain. As a general rule, 8lbs is a safe limit for lifting right after surgery. Walk as much as you feel comfortable but not to exhaustion. You will feel extra tired the first few days after surgery. Stay well hydrated. It is OK to walk up and down stairs You may return to driving when you are off narcotics (such as vicodin, oxycodone, dilaudid, etc), and you are back to normal functional capacity. If you have any concerns please check with office before driving. Return to work is specific to each patient and each surgery, so please speak with your doctor/PA at first follow up. Please bring paperwork such as FMLA at that time if you need it filled out. Medications: Due to your severe allergies he will be prescribed Benadryl alongside morphine for postoperative pain control. You tolerated this pain regimen well in the hospital, and were agreeable to continuing this at home. It is recommended that you take Tylenol 500 mg every 4 hours for the 1st week postoperatively, ?alongside ibuprofen 600 mg every 8 hours. We will give you a short supply of narcotics after surgery (usually one weeks worth). ??Please use this for breakthrough pain that is refractory to the Tylenol ibuprofen and gabapentin. If you need more please call the office but do not use more than prescribed. You will need to give our office 48 hours notice if you need narcotics refilled and we do not fill narcotics on weekends or evenings. If you are on a narcotic, it is a good idea to take a stool softener such as colace or senna to avoid constipation If you take blood thinner such as aspirin, Plavix, Coumadin, Effient, Eliquis etc for conditions such as Afib, DVT, Pulmonary embolus, coronary disease, stents etc please speak with your surgeon about specific details as to when you can resume these medications. You can resume NSAIDs on post op day 1 (eg: Motrin, Naproxen, etc). Follow up: Please call the office, , after surgery to arrange a 3 week follow up for wound check. Wound Care: You may remove your dressing on the first day after surgery. ?You may ?leave open to air. Please do not remove the steri strips underneath. they will fall off on their own in one week. IT IS NORMAL FOR THE WOUND TO OOZE OR BE BLOODY FOR A FEW DAYS AFTER SURGERY. ?IF THIS HAPPENS JUST PLACE NEW DRESSING OVER IT TO AVOID STAINING CLOTHES. You may shower on post op day # 1 We ask that you do not let the water soak the wound. If it does get wet, just towel dry lightly. Please do not scrub your incision or place any type of chemical/ointment on the wound. No tub baths, pools or jacuzzis for one month. If you have any leaking or redness from your wound, or fevers, please call office Care Plan Goals: Returned to normal activity as tolerated Health Concerns: None Plan of Treatment: Follow-up in clinic in 2-3 weeks Assessment: POD: 1 Procedure: L4-5 TLIF Kaykay was seen this morning on the 4th floor sitting upright in bed ordering breakfast. She reports that she is very hungry. Patient reports she is up walking around is otherwise doing well. She feels her symptoms are much better than pre-operatively. She still reports mild pain in her low backwith good relief with pain medication. Her shooting leg pains are gone. She is voiding well, tolerating diet. She asked several questions regarding postoperative pain control as she has many allergies. She has been able to tolerate morphine if taken alongside Benadryl and feels this has controlled her pain very well postoperatively. Afebrile, vital signs stable. Full strength 5/5 LEs. Back dressings have some staining without signs of hematoma. No active sanguineous drainage. Area is dry. Plan: Patient meets criteria to be medically discharged home. She will be prescribed morphine alongside Benadryl for pain control. [facility] medication [facility] sent to [facility] [employer] [facility] This was discussed with the attending neurosurgeon Dr. Augustine who is in agreement. Damian Augustine MD,PhD [facility]
[2023-11-12 07:32] VITALS: BP 126/81; PULSE 82; O2SAT 100
[2023-11-12] MEDS: Morphine Sulfate Immed Release 15 MG TABLET 30 MG PO (08:15)
[2023-11-12] MEDS: Docusate Sodium 100 MG CAPSULE PO (08:16)
[2023-11-12] MEDS: diphenhydrAMINE HCL 25 MG CAPSULE PO (08:16)
--- NOTE | 2023-11-12 08:51 | MHC.CM.PN ---
IMM 11/12/23, Pt has been medically cleared for DC. Her daughters are here to transport her home, plan is self care.
--- NOTE | 2023-11-12 13:58 | P.F2F_ITS ---
Service Date Service Date: 11/12/23 Encounter Date of encounter: 11/12/23 Reasons for Services Signs and symptoms assessed: s/p lumbar fusion Reason for detention: neurological assessment, postoperative assessment and/or care, medication management and teach disease management Reason for physical therapy: home safety and mobility, therapeutic exercises, gait/transfer training and ADL training Homebound: Leaving the home is medically contraindicated at this time without the asist of a device and/or another person due th the listed conditions above and below. Reason homebound: unsteady gait / fall risk, leg weakness, pain with ambulation and poor balance / fall risk Homebound supporting statement: s/p lumbar fusion Certification: Based on the above findings, I certify that this patient is confined to the home and needs intermittent detention care, physical therapy and/or speech therapy, or continues to need occupational therapy. The patient is under my care, and I have initiated the establishment of the plan of care. The patient will be followed by a physician who will periodically review the plan of care. Time Spent With Patient Time: Total time managing care of this patient today __15__ minutes.
== END 2023-11-12 09:02 | disposition home or self-care (01) | DRG 460 ==
LOC: HO.SSSA 08:11 → HO.IMC 14:19
PROVIDERS: Neurological Surgery; Nurse Practitioner; Admitting Provider Physician Assistant; PCP Physician Assistant; Visit Provider Physician Assistant
PROC: 0SG00AJ Fusion of Lumbar Vertebral Joint with Interbody Fusion Device, Posterior Approach, Anterior Column, Open Approach (ICD-10-PCS; CPT 22633; principal; 2023-11-11 11:30)
DX: M51.16 Intervertebral disc disorders with radiculopathy, lumbar region (principal); M32.9 Systemic lupus erythematosus, unspecified; F17.210 Nicotine dependence, cigarettes, uncomplicated; Z98.1 Arthrodesis status; Z71.6 Tobacco abuse counseling; Z79.899 Other long term (current) drug therapy
CPT/HCPCS: 22633; 20930; 22840; 63052; 22853; 20936; 36415; 80048; 81025; 85027; 86850; 86900; 86901; 93005; 96361; 96365; 96366; 96367; 96375; 96376; 97162; C1713; C9290; J0131; J0665; J1100; J1200; J1885; J2250; J2270; J2405; J2704; J3010; J3370; L8699

== ENCOUNTER → 2023-11-11 08:09 | Outpatient (BNV) | payer MEDICARE, MEDICAID, SELFPAY | PROVIDERS: Admitting Provider Physician Assistant; PCP Physician Assistant; Visit Provider Neurological Surgery | DX: M54.16 Radiculopathy, lumbar region (principal) | CPT/HCPCS: 20930; 20936; 22633; 22840; 22853; 63052; 99499; G0180 ==

== ENCOUNTER 2023-11-18 12:58 | Outpatient (AMB) | payer MEDICARE, MEDICAID, SELFPAY ==
--- NOTE | 2023-11-18 13:01 | A.SPINEOV_ITS ---
Intake Visit Reasons: Pain after sx/ med f/u Intake Note: Ms. Cynthia Ocampo is here today c/o pain after surgery. Bonbon Dipper Required: No Allergies fentanyl [FENTANYL] Allergy (Severe, Verified 11/03/23 13:44) ANAPHYLAXIS hydromorphone [From DILAUDID] Allergy (Severe, Verified 11/03/23 13:44) HIVES prednisolone Allergy (Severe, Verified 11/03/23 13:44) Anaphylaxis prednisone [PREDNISONE] Allergy (Severe, Verified 11/03/23 13:44) ANAPHYLAXIS acetaminophen [ACETAMINOPHEN] Allergy (Intermediate, Verified 11/03/23 13:44) ITCHY aspirin [From PERCODAN] Allergy (Intermediate, Verified 11/03/23 13:44) RASH ceftriaxone [CEFTRIAXONE] Allergy (Intermediate, Verified 11/03/23 13:44) RASH Cephalosporins [CEPHALOSPORINS] Allergy (Intermediate, Verified 11/03/23 13:44) Hives, Itching lorazepam [From ATIVAN] Allergy (Intermediate, Verified 11/03/23 13:44) HEADAHCE morphine [MORPHINE] Allergy (Intermediate, Verified 11/03/23 13:44) HIVES oxycodone [OXYCODONE] Allergy (Intermediate, Verified 11/03/23 13:44) ITCHY Penicillins [PENICILLINS] Allergy (Intermediate, Verified 11/03/23 13:44) SHORTNESS OF BREATH/ITCHING Assessment & Plan Assessment & Plan (1) S/P spinal fusion: Code(s): Z98.1 - Arthrodesis status Category: Medical Plan Kaykay comes in today for an acute appointment after her s/p L4-5 TLIF was completed on 11/11/2023. She is about a week out from surgery. She had called the office reporting some kind of swelling near the incision site accompanied by difficulties with her morphine. I add under onto my schedule to be seen within 24 hours. In clinic today she is doing well. She reports that she woke up today with little to no pain, she filled her Valium prescription yesterday and took 1 of them. She reports that this medication worked very well for her and provided her with needed relief so she could get to bed. Kaykay is well-appearing on exam. She has in no acute distress. Her speech is regular. She ambulates well and rises from a seated position without difficulty. She has no new neurological deficits. Her posterior incision sites are closed and well healing with no signs of erythema, edema, fluctuance or drainage. Area is dry. Overall the patient is doing very well for being only 1 week postoperative. She will continue taking the Valium as prescribed monotherapy for pain and will call the office if she needs more. Damian Augustine MD,PhD [facility] Coding Level of Care Code Global (94892) Diagnoses S/P spinal fusion Z98.1
== END 2023-11-18 13:11 | disposition home or self-care (01) ==
PROVIDERS: PCP Physician Assistant; Visit Provider Physician Assistant
DX: Z98.1 Arthrodesis status (principal)
CPT/HCPCS: 99024

== ENCOUNTER → 2023-11-18 12:58 | Outpatient (BNVA) | payer MEDICARE, MEDICAID, SELFPAY | PROVIDERS: PCP Physician Assistant; Visit Provider Physician Assistant | DX: Z98.1 Arthrodesis status (principal) | CPT/HCPCS: 99212 ==

== ENCOUNTER 2023-11-19 14:57 | Outpatient (AMB) | payer MEDICARE, MEDICAID, SELFPAY ==
--- NOTE | 2023-11-19 14:54 | A.OFFPC_ITS ---
Intake Visit Reasons: TCM LUMBAR FUSION SURGERY [employer] Saw Operator Required: No Information Interpreted: non-clinical & clinical Post Commander: Not Required per policy Accompanied by: Self / Same As Patient Allergies fentanyl [FENTANYL] Allergy (Severe, Verified 11/19/23 15:19) ANAPHYLAXIS hydromorphone [From DILAUDID] Allergy (Severe, Verified 11/19/23 15:19) HIVES prednisolone Allergy (Severe, Verified 11/19/23 15:19) Anaphylaxis prednisone [PREDNISONE] Allergy (Severe, Verified 11/19/23 15:19) ANAPHYLAXIS acetaminophen [ACETAMINOPHEN] Allergy (Intermediate, Verified 11/19/23 15:19) ITCHY aspirin [From PERCODAN] Allergy (Intermediate, Verified 11/19/23 15:19) RASH ceftriaxone [CEFTRIAXONE] Allergy (Intermediate, Verified 11/19/23 15:19) RASH Cephalosporins [CEPHALOSPORINS] Allergy (Intermediate, Verified 11/19/23 15:19) Hives, Itching lorazepam [From ATIVAN] Allergy (Intermediate, Verified 11/19/23 15:19) HEADAHCE morphine [MORPHINE] Allergy (Intermediate, Verified 11/19/23 15:19) HIVES oxycodone [OXYCODONE] Allergy (Intermediate, Verified 11/19/23 15:19) ITCHY Penicillins [PENICILLINS] Allergy (Intermediate, Verified 11/19/23 15:19) SHORTNESS OF BREATH/ITCHING Medication List - Last Reconciled 11/19/23 by Miah Mendoza PA-C acetaminophen ER 650 mg PO Q12H 30 days albuterol sulfate 90 mcg/actuation (Ventolin HFA) 1 inh inhalation QID 30 days diazepam (Valium) 5 mg PO Q6H PRN diphenhydramine HCl 25 mg PO TID PRN diphenhydramine HCl (Benadryl) 25 mg PO TID PRN hydroxychloroquine 100 mg PO BID lidocaine 5% 1 patch topical DAILY 30 days mometasone 100 mcg/actuation (Asmanex HFA) 1 puff inhalation DAILY PRN nystatin 10 mL PO BID PRN 5 days TENS unit electrodes As directed TENS units (TENS 502 device) As directed triamcinolone acetonide 0.1% 1 appl topical DAILY 30 days [wheelchair As directed] Tobacco use date assessed: 07/07/23 Dental Screening Dental Screen Date: 07/07/23 HPI TCM LUMBAR FUSION SURGERY HPI Details Patient is a 47-year-old female being evaluated today via telephone only. Patient underwent a lumbar fusion surgery recently and has had follow up with her neurosurgeons. She had some issue with morphine side effects. Now on Valium 5mg Daily/ PRN with tylenol for her pain which has been helpful. She now has visiting nurses and social service agency director involved in her care. She is asking for new letter to justify the need for 1st floor apartment that is handicap accessible. She also mentions there is mold in her home and would like to be changed to a new apartment. She now anticipates a neck surgery Dec 23. [facility] Medical History (Updated 11/19/23 @ 15:22 by Miah Mendoza PA-C) Seizure Family history of anesthesia complication Back pain DDD (degenerative disc disease), cervical DDD (degenerative disc disease), lumbar Depression Multiple drug allergies Seizure-like activity Kidney stone Ovarian cyst Chronic fatigue Asthma Osteopenia Lupus Surgical History Hx of hand surgery History of surgery Hx of cone biopsy of cervix Hx of lithotripsy History of lumbosacral spine surgery Hx of section Social History Household Members: Children Household Members Other:: only 1 daughter Housing: Apartment Are you a primary pet caregiver to a significant other at home: No Do you presently have visiting nurse or other home services: No Comment: uses on occasion Patient Tobacco Use Status: Current everyday Tobacco user Tobacco use type: Cigarette Cigarettes Per Day: 2 Years Smoked: 20 e-Cigarette/Vaping Use: Currently Using Second Hand Smoke Exposure: No Substance Use Type: Marijuana service: No Current occupational status: disabled Current occupation: rt handed Cognitive needs: No Hearing needs: No Vision needs: No Female Reproductive History Menstrual Age of Menarche: 14 Questionnaire Thrive Questionnaire Date Thrive assessed: 07/07/23 DILEEP-7 AMB Questionnaire DILEEP-7 Date DILEEP - 7 assessed: 07/07/23 Source: Developed by Drs. Daniel Prado, Tamy Fields, John Rai and colleagues, with an educational morgan from [employer]. Review of Systems Const Denies headache(s) Eyes Denies loss of vision ENT Denies vertigo, Denies dizziness, Denies headache(s) and Denies sore throat Card Denies chest pain, Denies leg edema and Denies lightheadedness Resp Denies cough, Denies hemoptysis and Denies wheezing GI Denies abdominal pain, Denies melena, Denies constipation, Denies diarrhea and Denies vomiting Denies urinary frequency, Denies dysuria and Denies urinary urgency Musc Reports back pain, Denies arthralgias, Denies joint swelling, Denies numbness and Denies tingling Neuro Denies behavioral changes, Denies vertigo, Denies dizziness, Denies headache(s), Denies loss of vision, Denies memory loss, Denies numbness and Denies tingling Psych Denies anxiety, Denies behavioral changes, Denies depression, Denies memory loss and Denies panic attacks Juan Manuel/Lymph Denies easy bleeding and Denies easy bruising Aller/Immun Denies wheezing Physical exam (Primary Care) Tobacco/Smoking Status: Tobacco use Status Tobacco use date assessed 07/07/23 11/19/23 14:56 Patient Tobacco Use Status Current everyday Tobacco 11/19/23 14:56 Tobacco use type Cigarette 11/19/23 14:56 e-Cigarette/Vaping Use Currently Using 11/19/23 14:56 Thrive Assessment: Date of Thrive Assessment Date Thrive assessed 07/07/23 11/19/23 14:56 Telehealth Telehealth Telehealth Platform: Telephone Location of provider rendering services: practice address Location of patient: address on file Patient Identification confirmed using: Name, : Yes Telehealth method: voice only Patient verbally consented to treatment: Yes Patient verbally consented to billing insurance company: Yes Patient informed of any privacy concerns related to visit: Yes Minutes spent on Phone/Video with Pt.: 11 Assessment and Plan Assessment & Plan (1) Hospital discharge follow-up: Code(s): Z09 - Encounter for follow-up examination after completed treatment for conditions other than malignant neoplasm Plan: As per HPI (2) S/P spinal fusion: Code(s): Z98.1 - Arthrodesis status Plan: As per HPI patient doing quite well. She reports she is up and walking, has a lot of family support. Does have home visiting nurses checking her wounds and doing therapy. He currently is managing her pain with Valium 5 mg as needed along with Tylenol p.r.n.. She anticipates neck surgery in mid December (3) Lumbar radiculitis: Code(s): M54.16 - Radiculopathy, lumbar region Coding Level of Care Code Tele Est Pt Level 3 (79632) Diagnoses Hospital discharge follow-up Z09 S/P spinal fusion Z98.1 Lumbar radiculitis M54.16
== END 2023-11-19 15:42 | disposition home or self-care (01) ==
LOC: HO.HMGH 14:57
PROVIDERS: PCP Physician Assistant; Visit Provider Physician Assistant
DX: M54.16 Radiculopathy, lumbar region (principal); Z98.1 Arthrodesis status
CPT/HCPCS: 99442

== ENCOUNTER 2023-12-10 14:20 | Outpatient (AMB) | payer MEDICARE, MEDICAID, SELFPAY ==
--- NOTE | 2023-12-10 14:22 | A.SPINEOV_ITS ---
Intake Visit Reasons: 1st post op Intake Note: Ms. Cynthia Ocampo is here for her 1st post-op appointment. Women Specialist Required: No Allergies fentanyl [FENTANYL] Allergy (Severe, Verified 12/10/23 14:25) ANAPHYLAXIS hydromorphone [From DILAUDID] Allergy (Severe, Verified 12/10/23 14:25) HIVES prednisolone Allergy (Severe, Verified 12/10/23 14:25) Anaphylaxis prednisone [PREDNISONE] Allergy (Severe, Verified 12/10/23 14:25) ANAPHYLAXIS acetaminophen [ACETAMINOPHEN] Allergy (Intermediate, Verified 12/10/23 14:25) ITCHY aspirin [From PERCODAN] Allergy (Intermediate, Verified 12/10/23 14:25) RASH ceftriaxone [CEFTRIAXONE] Allergy (Intermediate, Verified 12/10/23 14:25) RASH Cephalosporins [CEPHALOSPORINS] Allergy (Intermediate, Verified 12/10/23 14:25) Hives, Itching lorazepam [From ATIVAN] Allergy (Intermediate, Verified 12/10/23 14:25) HEADAHCE morphine [MORPHINE] Allergy (Intermediate, Verified 12/10/23 14:25) HIVES oxycodone [OXYCODONE] Allergy (Intermediate, Verified 12/10/23 14:25) ITCHY Penicillins [PENICILLINS] Allergy (Intermediate, Verified 12/10/23 14:25) SHORTNESS OF BREATH/ITCHING Assessment & Plan Assessment & Plan (1) S/P spinal fusion: Code(s): Z98.1 - Arthrodesis status Category: Surgical Plan Kaykay is a pleasant 47 year old female who comes in today for a subsequent follow up appointment after a L4-5 TLIF was completed by our service about 1 month ago. She continues to report good resolution of symptoms and states that she is highly motivated for her C5-6 and C6-7 ACDF which is scheduled to take place on 12/23 per her report. She feels as though the bulk of her low back pain has resolved since the operation, which she is very happy about. She is no longer taking any of the prescription medication that we gave her after surgery. Unfortunately she did have a complicated postoperative course due to her many allergies and concurrent lupus diagnosis. Thankfully she has over the bulk of this. She did make a couple of requests regarding her ACDF during this follow-up visit. Firstly, she requested no ketamine be used when she is sedated for the surgery, as she feels she had longstanding negative impacts from this medication. Secondly she requested being able to stay for 1 night in the hospital after her surgery as she is worried that she will have a lupus flare-up when she is discharged home. No new neurological deficits. The patient is able to ambulate well and rises from a seated position without difficulty. Her posterior incision sites are closed and well healing. Kaykay is scheduled to undergo C5-6, C6-7 ACDF in the coming weeks. We discussed viscous lidocaine for her posterior neck and Valium as a possible pain regimen for after surgery due to her many allergies and reactions to medications. She is agreeable to this and feels she had good success with it after her lumbar spine surgery. I will discuss the possibility of having her stay 1 night in the hospital as an extended stay with Dr. Augustine. Damian Augustine MD,PhD [facility] Coding Level of Care Code Global (81987) Diagnoses S/P spinal fusion Z98.1
== END 2023-12-10 15:08 | disposition home or self-care (01) ==
PROVIDERS: PCP Physician Assistant; Visit Provider Physician Assistant
DX: Z98.1 Arthrodesis status (principal)
CPT/HCPCS: 99024

== ENCOUNTER → 2023-12-10 14:20 | Outpatient (BNVA) | payer MEDICARE, MEDICAID, SELFPAY | PROVIDERS: PCP Physician Assistant; Visit Provider Physician Assistant | DX: Z48.89 Encounter for other specified surgical aftercare (principal); Z98.1 Arthrodesis status | CPT/HCPCS: 99212 ==

== ENCOUNTER 2023-12-31 05:34 | Day surgery (SDC) | payer MEDICARE, MEDICAID, SELFPAY ==
[2023-12-09 09:29] VITALS: BMI 29.6
--- NOTE | 2023-12-30 10:28 | HO.ANESPROP2 ---
Documented by User: Maite Mejia NP 12/30/23 10:40 HPI - Anesthesia Eval Consult details Narrative: 48yo F for C5-6,C6-7 Ant Cerv Discectomy w/ fusion s/p TLIF 11/2023 with GA-ETT 7 Anesthesia record on chart. Patient requests NO ketamine this time Per 11/2023 PAT: Multiple drug allergies: Morphine, tylenol, and oxycodone tolerated with premedicated with benadryl DOES NOT TOLERATE: Fentanyl, dilaudid, Steroids 11/2022 Surgical Procedure at [facility]. Anesthesia record shows patient tolerated: Benadryl 25, Midaz 2, Propofol 100, Ketamine 20, Lido 50, Fentanyl 200, Ketorolac 15, Rocuronium 60, Dexamethasone 4mg, Zofran 4, Suggamadex 300, Gent/Flagyl Case reviewed with Dr Magallon. Plan for morphine, ketamine, dex. Preop benadryl ordered. Lupus: plaquinel Asthma: scheduled asmanex BID, abluterol BID prophylactic (no asthma symptoms) Focal seizure activity: No outward symptoms PMFSH Active Problems Active Problems: All Active Problems (Updated 12/29/23 @ 16:57 by Miah Mendoza PA-C) Cyst on ear (Acute) Hospital discharge follow-up (Acute) S/P spinal fusion (Acute) Oral thrush (Acute) Pre-op evaluation (Acute) Annual physical exam (Acute) Dermatitis (Acute) Colon cancer screening (Acute) Lumbar radiculitis (Acute) Cervical radiculopathy (Acute) Tobacco dependence (Acute) Screening for diabetes mellitus (DM) (Acute) COVID (Acute) Immunodeficiency (Acute) MDD (major depressive disorder), recurrent episode, moderate (Acute) Cervical spine pain (Acute) Lupus (systemic lupus erythematosus) (Acute) Chronic pain syndrome (Acute) Galactorrhea (Acute) Ganglion cyst of volar aspect of left wrist (Acute) Left carpal tunnel syndrome (Acute) De Quervain's tenosynovitis, left (Acute) Breast tenderness (Acute) Breast cyst (Acute) disorder (Acute) Bleeding from nipple in female (Acute) Left genital labial abscess (Acute) Asthma (Acute) Past Medical History Medical History Seizure Family history of anesthesia complication Back pain DDD (degenerative disc disease), cervical DDD (degenerative disc disease), lumbar Depression Multiple drug allergies Seizure-like activity Kidney stone Ovarian cyst Chronic fatigue Asthma Osteopenia Lupus Family History Family history of problems with anesthesia: No Surgical History Surgical History Hx of lumbar discectomy Hx of hand surgery History of surgery Hx of cone biopsy of cervix Hx of lithotripsy History of lumbosacral spine surgery Hx of section History of Problems with Anesthesia: No Social History Social History Household Members: Children Household Members Other:: daughter Housing: Apartment Are you a primary home care giver to a significant other at home: No Do you presently have visiting nurse or other home services: No Comment: uses on occasion Patient Tobacco Use Status: Current everyday Tobacco user Tobacco use type: Cigarette Cigarettes Per Day: 2 Years Smoked: 20 e-Cigarette/Vaping Use: Currently Using Second Hand Smoke Exposure: No Use of substances other than those prescribed or required for medical reasons: Yes Substance Use Type: Marijuana Substance Use Frequency: Daily Have you been hit, kicked, punched, or otherwise hurt by someone within the past year? If so, by whom?: No Spiritual Healthcare Practices: none Bahai Healthcare Practices: none Cultural Healthcare Practices: none Are you DNR?: No Advance Directives: No (daughter is primary contact) Advance Directives Information Provided: Yes Advance Directives on File: No Recently lost weight without trying: No Nutrition Risks: No Nutritional Risk Patient : No : No Poor oral hygiene: No service: No Current occupational status: disabled Current occupation: rt handed Cognitive needs: No Hearing needs: No Vision needs: No Meds Allergies Allergy/AdvReac Type Severity Reaction Status Date / Time fentanyl [FENTANYL] Allergy Severe ANAPHYLAXIS Verified 12/10/23 14:25 hydromorphone [From DILAUDID] Allergy Severe HIVES Verified 12/10/23 14:25 prednisolone Allergy Severe Anaphylaxis Verified 12/10/23 14:25 prednisone [PREDNISONE] Allergy Severe ANAPHYLAXIS Verified 12/10/23 14:25 acetaminophen [ACETAMINOPHEN] Allergy Intermediate ITCHY Verified 12/10/23 14:25 aspirin [From PERCODAN] Allergy Intermediate RASH Verified 12/10/23 14:25 ceftriaxone [CEFTRIAXONE] Allergy Intermediate RASH Verified 12/10/23 14:25 Cephalosporins Allergy Intermediate Hives, Verified 12/10/23 14:25 [CEPHALOSPORINS] Itching lorazepam [From ATIVAN] Allergy Intermediate HEADAHCE Verified 12/10/23 14:25 morphine [MORPHINE] Allergy Intermediate HIVES Verified 12/10/23 14:25 oxycodone [OXYCODONE] Allergy Intermediate ITCHY Verified 12/10/23 14:25 Penicillins [PENICILLINS] Allergy Intermediate SHORTNESS Verified 12/10/23 14:25 OF BREATH/ITCHING Home Medications ?Medication ?Instructions ?Recorded ?Confirmed ?Last Taken ?Type diphenhydramine HCl 25 mg tablet 25 mg PO TID PRN medication 10/28/23 12/09/23 11/10/23 History allergies hydroxychloroquine 100 mg tablet 100 mg PO BID 10/28/23 12/09/23 12/30/23 History mometasone 100 mcg/actuation HFA 1 puff inhalation DAILY PRN sob 11/11/23 12/09/23 12/31/23 History aerosol inhaler (Asmanex HFA) Exam Height,Weight and Vital Signs: Height 5 ft 2 in Weight 73.482 kg Pertinent Lab Results Pertinent Lab Results: Lab Results 10/28/23 Range/Units 11:32 WBC 6.0 (4.8-10.8) X10*3/uL RBC 3.69 L (4.20-5.50) X10*6/uL Hgb 12.0 (12.0-16.0) g/dl Hct 35.4 L (37.0-47.0) % MCV 95.9 (80.0-98.0) fL MCH 32.5 (27.0-33.0) pg MCHC 33.9 (31.0-35.0) g/dl RDW 13.3 (11.0-16.0) % Plt Count 195 (160-400) X10*3/uL MPV 11.3 (9.4-12.3) fL Absolute Nucleated RBC 0.000 (0.0-0.012) X10*3/uL Nucleated RBC % (auto) 0.0 (0.0-0.2) /100WBC Sodium 140 (135-145) mmol/L Potassium 4.1 (3.3-5.1) mmol/L Chloride 109 H (96-108) mmol/L Carbon Dioxide 25 (22-29) mmol/L Anion Gap 10 L (12-20) BUN 10 (9-16) mg/dL Creatinine 0.78 (0.5-1.4) mg/dL Estim Creat Clear Calc 85.4 Estimated GFR > 60 Random Glucose 87 (60-115) mg/dL Calcium 9.2 (8.4-10.2) mg/dL Narrative Narrative: EKG 10/2023 Vent. Rate : 055 BPM Atrial Rate : 055 BPM P-R Int : 118 ms QRS Dur : 088 ms QT Int : 414 ms P-R-T Axes : 054 041 036 degrees QTc Int : 396 ms Sinus bradycardia Otherwise normal ECG When compared with ECG of 02-APR-2022 12:41, No significant change was found Assessment and Plan Assessment Anesthesia Assessment: Chart Reviewed Final Anesthetic Review Family History of Problems with Anesthesia: No History of Problems with Anesthesia: No Documented by User: Sharona Weinberg MD 12/31/23 08:28 [facility] Past Medical History Medical History Seizure Family history of anesthesia complication Back pain DDD (degenerative disc disease), cervical DDD (degenerative disc disease), lumbar Depression Multiple drug allergies Seizure-like activity Kidney stone Ovarian cyst Chronic fatigue Asthma Osteopenia Lupus Surgical History Surgical History Hx of lumbar discectomy Hx of hand surgery History of surgery Hx of cone biopsy of cervix Hx of lithotripsy History of lumbosacral spine surgery Hx of section Social History Social History Household Members: Children Household Members Other:: daughter Housing: Apartment Are you a primary home care giver to a significant other at home: No Do you presently have visiting nurse or other home services: No Comment: uses on occasion Patient Tobacco Use Status: Current everyday Tobacco user Tobacco use type: Cigarette Cigarettes Per Day: 2 Years Smoked: 20 e-Cigarette/Vaping Use: Currently Using Second Hand Smoke Exposure: No Use of substances other than those prescribed or required for medical reasons: Yes Substance Use Type: Marijuana Substance Use Frequency: Daily Have you been hit, kicked, punched, or otherwise hurt by someone within the past year? If so, by whom?: No Spiritual Healthcare Practices: none Bahai Healthcare Practices: none Cultural Healthcare Practices: none Are you DNR?: No Advance Directives: No (daughter is primary contact) Advance Directives Information Provided: Yes Advance Directives on File: No Recently lost weight without trying: No Nutrition Risks: No Nutritional Risk Patient : No : No Poor oral hygiene: No service: No Current occupational status: disabled Current occupation: rt handed Cognitive needs: No Hearing needs: No Vision needs: No Meds Allergies Allergy/AdvReac Type Severity Reaction Status Date / Time fentanyl [FENTANYL] Allergy Severe ANAPHYLAXIS Verified 12/10/23 14:25 hydromorphone [From DILAUDID] Allergy Severe HIVES Verified 12/10/23 14:25 prednisolone Allergy Severe Anaphylaxis Verified 12/10/23 14:25 prednisone [PREDNISONE] Allergy Severe ANAPHYLAXIS Verified 12/10/23 14:25 acetaminophen [ACETAMINOPHEN] Allergy Intermediate ITCHY Verified 12/10/23 14:25 aspirin [From PERCODAN] Allergy Intermediate RASH Verified 12/10/23 14:25 ceftriaxone [CEFTRIAXONE] Allergy Intermediate RASH Verified 12/10/23 14:25 Cephalosporins Allergy Intermediate Hives, Verified 12/10/23 14:25 [CEPHALOSPORINS] Itching lorazepam [From ATIVAN] Allergy Intermediate HEADAHCE Verified 12/10/23 14:25 morphine [MORPHINE] Allergy Intermediate HIVES Verified 12/10/23 14:25 oxycodone [OXYCODONE] Allergy Intermediate ITCHY Verified 12/10/23 14:25 Penicillins [PENICILLINS] Allergy Intermediate SHORTNESS Verified 12/10/23 14:25 OF BREATH/ITCHING Home Medications ?Medication ?Instructions ?Recorded ?Confirmed ?Last Taken ?Type diphenhydramine HCl 25 mg tablet 25 mg PO TID PRN medication 10/28/23 12/09/23 11/10/23 History allergies hydroxychloroquine 100 mg tablet 100 mg PO BID 10/28/23 12/09/23 12/30/23 History mometasone 100 mcg/actuation HFA 1 puff inhalation DAILY PRN sob 11/11/23 12/09/23 12/31/23 History aerosol inhaler (Asmanex HFA) Exam Airway Mallampati Class: III TM Dist: >3cm Neck ROM: Limited Assessment and Plan Assessment Anesthesia Assessment: Anesthesia Plan Discussed Final Anesthetic Review NPO: Yes ASA Class: III Final Preanesthetic Review: No Changes in Pt Med Stat, Meds/Allgs Chart Reviewed, Consent Obtained/Reviewed and Anes Risks/Benef Reviewed Patient Risk: Intermediate Procedure Risk: Intermediate Anesthetic Plan Anesthetic Plan: GA Disposition: Standard PACU
[2023-12-31] VITALS (14 sets, daily range): BP systolic 112–150; BP diastolic 64–93; PULSE 66–89; RESP 14–21; TEMP 35.7–36.6; O2SAT 95–100; BMI 29.8; BMI 29.4
[2023-12-31 06:24] LABS: Urine Pregnancy NEGATIVE (NEGATIVE)
[2023-12-31 06:25] LABS: UPreg QC Valid YES
[2023-12-31] MEDS: Lactated Ringers 1,000 ML 100 ML IVCONT (06:41)
[2023-12-31] MEDS: Gabapentin 300 MG CAPSULE PO (06:49)
[2023-12-31] MEDS: methocarbamoL 750 MG TABLET PO (06:50)
[2023-12-31] MEDS: diphenhydrAMINE HCL 50 MG/ML VIAL 25 MG IVPUSH (07:04)
--- NOTE | 2023-12-31 07:10 | MHC.SHP ---
Pre-Procedural Eval Section A - 24 Hr Update-Section A only Date of Service: 12/31/23 Section B - Complete if H&P > 30 days Chief Complaint: S/P C5-6, C6-7, ACDF Allergies: Allergies Allergy/AdvReac Type Severity Reaction Status Date / Time fentanyl [FENTANYL] Allergy Severe ANAPHYLAXIS Verified 12/10/23 14:25 hydromorphone [From DILAUDID] Allergy Severe HIVES Verified 12/10/23 14:25 prednisolone Allergy Severe Anaphylaxis Verified 12/10/23 14:25 prednisone [PREDNISONE] Allergy Severe ANAPHYLAXIS Verified 12/10/23 14:25 acetaminophen [ACETAMINOPHEN] Allergy Intermediate ITCHY Verified 12/10/23 14:25 aspirin [From PERCODAN] Allergy Intermediate RASH Verified 12/10/23 14:25 ceftriaxone [CEFTRIAXONE] Allergy Intermediate RASH Verified 12/10/23 14:25 Cephalosporins Allergy Intermediate Hives, Verified 12/10/23 14:25 [CEPHALOSPORINS] Itching lorazepam [From ATIVAN] Allergy Intermediate HEADAHCE Verified 12/10/23 14:25 morphine [MORPHINE] Allergy Intermediate HIVES Verified 12/10/23 14:25 oxycodone [OXYCODONE] Allergy Intermediate ITCHY Verified 12/10/23 14:25 Penicillins [PENICILLINS] Allergy Intermediate SHORTNESS Verified 12/10/23 14:25 OF BREATH/ITCHING Review of Systems Sugical H&P ROS: Negative: Constitution, Cardiovascular, Respiratory, Neurological, Psychiatric, Hem-Onc, Allergic/Immunologic, Gastrointestinal, Genitourinary, Musculoskeletal, Integumentary, Endocrine and Eyes/Ears/Nose/Throat Exam Surgical H&P Exam: Not Evaluated: HEENT, Not Evaluated: Heart, Not Evaluated: Lungs, Not Evaluated: Extremities, Not Evaluated: Abdomen, Not Evaluated: Skin and Not Evaluated: Neurological Exam Comment: The patient is alert and oriented in no acute distress. Proposed surgical incision site is clean without any evidence of recent surgery Plan Diagnosis/Plan: Unchanged I have reviewed the history and physical and performed a pertinent physical examination on my patient. No changes have occurred unless specified. Plan remains the same, C5-7 ACDF Time Spent With Patient Time: Total time managing care of this patient today __8__ minutes.
--- NOTE | 2023-12-31 07:15 | P.DS_ITS ---
DS: Providers Provider Date of Service: 01/01/24 Date of admission: 12/31/23 06:13 Primary care physician: Miah Mendoza PA-C DS: Summary Time Attestation Discharge Coordination Time (in mins): 15 Quality: Safe Use of Opioids Does Pt have an Active Cancer Diagnosis on the Problem List?: No Quality: Stroke Does the patient have a stroke diagnosis?: No Physical Exam Vital Signs: Vital Signs: Last Vital Signs Temp 96.9 F 12/31/23 06:32 Pulse 69 12/31/23 06:32 Resp 14 12/31/23 06:32 BP 112/64 12/31/23 06:32 Pulse Ox 99 12/31/23 06:32 O2 Del Method Room Air 12/31/23 06:32 BMI result Body Mass Index 29.8 DS: Data Data Completed and Pending Completed studies during hospitalization [Text1]: Procedures Excision of Lumbosacral Disc, Open Approach (11/11/23) Fusion of Lumbar Vertebral Joint with Interbody Fusion Device, Posterior Approach, Anterior Column, Open Approach (11/11/23) Insertion of Interspinous Process Spinal Stabilization Device into Lumbar Vertebral Joint, Open Approach (11/11/23) Release Lumbar Nerve, Open Approach (11/11/23) Labs on day of discharge: Laboratory Results - last 24 hr 12/31/23 06:07 Urine Test NEGATIVE Discharge Plan Discharge Referrals: Miah Mendoza PA-C [Primary Care Provider] - 1 Week Discharge Medications: New morphine 15 mg tablet See Rx Instructions .ROUTE .COMPLEX Qty: 21 0RF Rx Instructions: Take 1/2 tablet every 4-6 hours as needed for severe pain. Partial Fill upon patient request. diazepam [Valium] 5 mg tablet 5 mg PO TID PRN (Reason: muscle spasm) Qty: 21 0RF cyclobenzaprine 10 mg tablet 10 mg PO TID Qty: 21 0RF diphenhydramine HCl 25 mg capsule 25 mg PO QID PRN (Reason: allergy symptoms) Qty: 30 1RF Continued acetaminophen 650 mg tablet extended release 650 mg PO Q12H 30 Days Qty: 60 0RF albuterol sulfate [Ventolin HFA] 90 mcg/actuation HFA aerosol inhaler 1 inh inhalation QID 30 Days Qty: 8.5 3RF nystatin 100,000 unit/mL suspension 10 ml PO BID PRN (Reason: mouth irritation) 5 Days Qty: 100 0RF Rx Instructions: swish and spite mupirocin 2 % ointment 1 appl topical BID 15 Days Qty: 22 0RF hydroxychloroquine 100 mg tablet 100 mg PO BID Asmanex HFA 100 mcg/actuation HFA aerosol inhaler 1 puff inhalation DAILY PRN (Reason: sob) (DME) TENS 502 Device See Rx Instructions .Route Qty: 1 0RF Rx Instructions: As directed (DME) TENS unit electrodes Pad See Rx Instructions .Route Qty: 10 0RF Rx Instructions: As directed triamcinolone acetonide 0.1 % cream 1 appl topical DAILY 30 Days Qty: 80 0RF (DME) wheelchair See Rx Instructions .Route .MEDSUPPLY Qty: 1 0RF Rx Instructions: As directed Held diphenhydramine HCl 25 mg Tablet 25 mg PO TID PRN (Reason: medication allergies) Hold Instructions: Resume on 01/01/24. Patient reports she is out of this medication, I will send in a new prescription cyclobenzaprine 10 mg tablet 10 mg PO BEDTIME PRN (Reason: muscle spasm) Hold Instructions: Resume on 01/01/24. The patient reports she is out of this medication, I will send her a new prescription lidocaine 5 % adhesive patch,medicated 1 patch topical DAILY 30 Days Qty: 30 2RF Hold Instructions: Resume on 01/07/24. do not apply to incision site Rx Instructions: leave on most painful area for up to 12 hrs Discharge Orders: Discharge Order (Routine); Ordered 01/01/24 Ordered By: Damian Lopes Diet: Advance to usual diet Activity on Discharge: As tolerated Stand Alone Forms: Patient Portal Discharge page Activity Restrictions/Additional Instructions: After your spinal surgery we ask you to observe the following restrictions/guidelines: Activity: It is normal to feel some discomfort as you increase your activity, but that will improve with time. We ask you avoid heavy lifting or acitivities that cause pain. As a general rule, 8lbs is a safe limit for lifting right after surgery. Walk as much as you feel comfortable but not to exhaustion. You will feel extra tired the first few days after surgery. Stay well hydrated. It is OK to walk up and down stairs You may return to driving when you are off narcotics (such as vicodin, oxycodone, dilaudid, etc), and you are back to normal functional capacity. If you have any concerns please check with office before driving. Return to work is specific to each patient and each surgery, so please speak with your doctor/PA at first follow up. Please bring paperwork such as FMLA at that time if you need it filled out. Medications: I have sent in Morphine 15mg tablets as you have tolerated this medication well int he past. Take 1/2 tablet every 4-6 hours as needed for severe pain. Take in conjunction with benadryl to prevent allergic reaction. I also sent in Valium 5mg to be taken 3 times daily as needed for muscle spasms and pain. We discussed how these medications can be sedating, and you understand that you should take the lowest dosing possible to obtain pain relief without sedation. We recommend you take 1,000mg Tylenol every 8 hours for the first few weeks after surgery, if you do not have any liver issues and can tolerate this medication. Do not exceed 4,000mg daily. We will give you a short supply of narcotics after surgery (usually one weeks worth). If you need more please call the office but do not use more than prescribed. You will need to give our office 48 hours notice if you need narcot ics refilled and we do not fill narcotics on weekends or evenings. If you are on a narcotic, it is a good idea to take a stool softener such as colace or senna to avoid constipation If you take blood thinner such as aspirin, Plavix, Coumadin, Effient, Eliquis etc for conditions such as Afib, DVT, Pulmonary embolus, coronary disease, stents etc please speak with your surgeon about specific details as to when you can resume these medications. You can resume NSAIDs on post op day 1 (eg: Motrin, Naproxen, etc). Follow up: Please call the office, , after surgery to arrange a 3 week follow up for wound check. Wound Care: You may remove your dressing on the first day after surgery. ?You may ?leave open to air. Please do not remove the steri strips underneath. they will fall off on their own in one week. IT IS NORMAL FOR THE WOUND TO OOZE OR BE BLOODY FOR A FEW DAYS AFTER SURGERY. ?IF THIS HAPPENS JUST PLACE NEW DRESSING OVER IT TO AVOID STAINING CLOTHES. You may shower on post op day # 1 We ask that you do not let the water soak the wound. If it does get wet, just towel dry lightly. Please do not scrub your incision or place any type of chemical/ointment on the wound. No tub baths, pools or jacuzzis for one month. If you have any leaking or redness from your wound, or fevers, please call the office. I have ordered VNA services for you to have home physical therapy. Print Language: Serbian
[2023-12-31] MEDS: vancomycin HCL 1,000 MG in 0.9 % Sodium Chloride 250 ML 270 MG IV ×2 (07:35→18:38)
--- NOTE | 2023-12-31 09:19 | P.OP_ITS ---
Operative Note Operative Note Date of Service: 12/31/23 Narrative: Preoperative Diagnosis: Cervical spondylosis; neck pain Procedure: C5-6, C6-7 Anterior discectomy, arthrodesis and implantation cage ; C5-C7 anterior instrumentation ; local autograft; microscope Informed Consent was obtained for this operation. I have explained the nature, purpose and benefits of the operation. I have discussed the risks and benefit of the operation including possible complications or adverse events with patient/family. Alternative(s) were discussed with the patient with their relative benefits and risks as well as the consequences of not accepting the operation were included in obtaining consent. Surgeon: LENCHO ROCA MD, PHD Procedure Assisted By: JESSICA Moser Description of Procedure: This patient is suffering from intractable neck pain with MRI showing severe cervical degenerative disc disease C5-6 and C6-7. Patient was offered an anterior diskectomy and fusion of these levels. The procedure complications were explained. The patient was consented. The patient was brought to the operating room and endotracheally intubated. The patient was put in supine position with slight extension of the neck. Prep and drape was done followed by timeout. A mid cervical incision was made followed by opening of the platysma. The prevertebral fascia was reached following the natural planes while the physician assistant professor of german provided manual retraction. The prevertebral fascia was ope ivory to expose the disc space. A spinal needle was placed in the disk space to confirm the correct level with xray. The longus colli muscles were released bilaterally and a self retaining retractor was inserted. An initial diskectomy was done of C5-6 and C6-7. Two Quinnesec pins were placed in the C5-C6 vertebral bodies and distraction was give over the interspace. The discectomy was completed toward the posterior annulus of the disc. The microscope was brought in. The remainder of the discectomy was completed. The posterior ligament was opened and resected to expose the underlying dura. Osteophytes were resected from the body of C5 and C6 and saved for autograft. Bilateral foraminotomies were done. The endplates were prepared after which a 6 mm cage filled with autograft was inserted into the disc space. A separate attached plate was locked down with 2 x 14 mm screws as anterior instrumentation. Then attention was turned to the C6-7 disc space. The Quinnesec pin was moved from C5-C7 and distraction was giving over the interspace. A diskectomy was completed towards the posterior annulus. The posterior longitudinal ligament was opened. The underlying spinal cord was decompressed by removing large osteophytes from the body of C6 and C7. Bilateral foraminotomy was done. The endplates were prepared after which a 6 mm cage was inserted filled with autograft. A separate attached plate was locked down with 2 x 14 mm screws as anterior instrumentation. Final x-rays in AP and lateral projection showed a satisfactory position of the implants and anterior instrumentation. The [facility] assistant professor of german took over. The Quinnesec pin was removed. Hemostasis was done. He closed the incision in 2 layers with a 3-0 Vicryl. Steri-Strips used to approximate incision. An OpSite with Tegaderm was used to cover the incision. All sponge and needle counts were correct. Patient was extubated and transported in stable is to recovery room. Anesthesia: General Estimated Blood Loss (ml): 20 mL Duration of Surgery: 1 hour 15 minutes Postoperative Plan: Discharge home Complications: None
[2023-12-31] MEDS: Morphine Sulfate 2 MG/ML CARTRIDGE 1 MG IVPUSH ×3 (09:35→09:59)
[2023-12-31] MEDS: LORazepam 2 MG/ML VIAL 1 MG IVPUSH (10:10)
--- NOTE | 2023-12-31 12:11 | PHA.MEDREC ---
Addendum entered by Missy Chávez RPh 12/31/23 12:26: reviewed by [facility]. Original Note: Pharmacy Consult ? Medication Reconciliation Pharmacy has reviewed the medication reconciliation done by nursing. Spoke to patient to confirm med list. Patient states she is no longer on Diazepam 5 mg. Patient says she last too Hydroxychloroquine 100 mg was 12/30/23, all other medication was 12/29/23
[2023-12-31] MEDS: Acetaminophen 1,000 MG/100 ML PIGGYBACK 400 MG IV ×2 (13:43→20:28)
[2023-12-31] MEDS: 0.9 % Sodium Chloride 1,000 ML 75 ML IVCONT (13:43)
[2023-12-31] MEDS: Morphine Sulfate ER 15 MG TABLET.ER PO (17:46)
[2023-12-31] MEDS: diphenhydrAMINE HCL 25 MG CAPSULE PO (17:47)
[2023-12-31] MEDS: Albuterol Sulfate 90 MCG 8 GM INHALER 1 PUFF INHALE ×2 (18:10→20:38)
[2023-12-31] MEDS: Nystatin Oral Susp 500,000 UNIT/5 ML ORAL.SUSP 1000000 UNIT PO (18:37)
[2023-12-31] MEDS: Hydroxychloroquine Sulfate 200 MG TABLET 100 MG PO (20:27)
[2023-12-31] MEDS: Famotidine 20 MG TABLET PO (20:27)
[2023-12-31] MEDS: Docusate Sodium 100 MG CAPSULE PO (20:27)
[2023-12-31] MEDS: diazePAM 5 MG TABLET PO (20:28)
[2023-12-31] MEDS: Lidocaine 4 % Cream KIT 1 APPL TOPICAL (22:14)
[2024-01-01] MEDS: diphenhydrAMINE HCL 50 MG/ML VIAL 25 MG IVPUSH (00:13)
[2024-01-01] MEDS: Morphine Sulfate ER 15 MG TABLET.ER PO ×2 (01:35→09:52)
[2024-01-01] MEDS: Acetaminophen 1,000 MG/100 ML PIGGYBACK 400 MG IV ×2 (02:43→08:17)
[2024-01-01] MEDS: 0.9 % Sodium Chloride 1,000 ML 75 ML IVCONT (02:45)
[2024-01-01 03:10] VITALS: BP 110/61; PULSE 85; RESP 17; TEMP 36.9; O2SAT 97
--- NOTE | 2024-01-01 05:44 | PC.NURSE ---
0149; Patient awoke from her sleep with 9/10 pain along with complaints of swelling she can feel in her throat when she swallows. Patient compared this to the feeling of strep and feels that her swallowing is getting worse. Patient endorsed no trouble breathing. Pain medication was given along with an ice pack to help with swelling. MD Knox aware and made note of patients complaint. 0230; Patient resting comfortably in bed-sleeping , no signs of distress or trouble breathing
[2024-01-01] MEDS: Nystatin Oral Susp 500,000 UNIT/5 ML ORAL.SUSP 1000000 UNIT PO (06:28)
[2024-01-01 07:57] VITALS: BP 121/72; PULSE 88; RESP 18; TEMP 36.3; O2SAT 98
[2024-01-01] MEDS: Albuterol Sulfate 90 MCG 8 GM INHALER 1 PUFF INHALE (08:11)
[2024-01-01 08:12] VITALS: PULSE 94; RESP 16; O2SAT 96
[2024-01-01] MEDS: Hydroxychloroquine Sulfate 200 MG TABLET 100 MG PO (08:15)
[2024-01-01] MEDS: diazePAM 5 MG TABLET PO (08:16)
[2024-01-01] MEDS: Famotidine 20 MG TABLET PO (08:16)
--- NOTE | 2024-01-01 08:59 | HO.POSTANES ---
Post Anesthesia Evaluation Post Anesthesia Evaluation Date of Service: 12/31/23 Vital Signs: Vital Signs Temp Pulse Resp BP Pulse Ox O2 Del Method 01/01/24 08:12 94 16 01/01/24 07:57 97.4 F 88 18 121/72 98 Room Air 01/01/24 03:10 98.4 F 85 17 110/61 97 Room Air 12/31/23 21:59 97.9 F 89 18 129/88 95 Room Air Anesthesia: General Mental Status: Awake Pain Control: Satisfactory Nausea/Vomiting: None Hydration: Adequate Anesthesia-Related Issues: No Anes. Related Issues
--- NOTE | 2024-01-01 09:33 | W.MHC.F2F ---
Service Date Service Date: 01/01/24 Encounter Date of encounter: 01/01/24 Reasons for Services Signs and symptoms assessed: s/p C5-7 ACDF Reason for physical therapy: home safety and mobility, therapeutic exercises, gait/transfer training and ADL training Homebound: Leaving the home is medically contraindicated at this time without the asist of a device and/or another person due th the listed conditions above and below. Reason homebound: unsteady gait / fall risk, pain with ambulation and weakness related to hospital stay Certification: Based on the above findings, I certify that this patient is confined to the home and needs intermittent senior living care, physical therapy and/or speech therapy, or continues to need occupational therapy. The patient is under my care, and I have initiated the establishment of the plan of care. The patient will be followed by a physician who will periodically review the plan of care. Time Spent With Patient Time: Total time managing care of this patient today _15___ minutes.
[2024-01-01] MEDS: diphenhydrAMINE HCL 25 MG CAPSULE PO (09:52)
--- NOTE | 2024-01-01 13:12 | MHC.CM.PN ---
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 PT VERIFIES PCP ON FILE IS CORRECT AND PT HAS BEEN EDUCATED ON AND COMPLETED A PCP NAMING HER DTR TOVABUBBA KENDRICKA [phone] HER [facility], NO ALTERNATE CHOSEN, PT RECEIVED EDUCATIONAL HANDOUT AND ORIGINAL, COPY UPLOADED TO [employer] AND PLACED IN CHART. DCP: HOME SELF CARE TODAY W/DTR FOR TRANSPORT
== END 2024-01-01 11:02 | disposition home health service (06) ==
LOC: HO.SSS 05:35 → HO.SSSA 07:16 → HO.S3 15:16
PROVIDERS: Nurse Practitioner; PCP Physician Assistant; Visit Provider Neurological Surgery
PROC: (CPT 22551; principal; 2023-12-31 07:30)
DX: M50.322 Other cervical disc degeneration at C5-C6 level (principal); M50.323 Other cervical disc degeneration at C6-C7 level; G89.4 Chronic pain syndrome; M54.12 Radiculopathy, cervical region; M85.80 Other specified disorders of bone density and structure, unspecified site; M32.9 Systemic lupus erythematosus, unspecified; R56.9 Unspecified convulsions; R53.82 Chronic fatigue, unspecified; Z87.442 Personal history of urinary calculi; Z79.899 Other long term (current) drug therapy; Z88.0 Allergy status to penicillin; Z88.5 Allergy status to narcotic agent; Z88.6 Allergy status to analgesic agent; Z88.8 Allergy status to other drugs, medicaments and biological substances; Z98.890 Other specified postprocedural states; F17.210 Nicotine dependence, cigarettes, uncomplicated
CPT/HCPCS: 22551; 22552; 22853; 20936; 22845; 81025; C1713; C1889; J0131; J1100; J1200; J1885; J2003; J2060; J2250; J2270; J2405; J2704; J3010; J3370

== ENCOUNTER 2024-02-25 13:00 | Outpatient (AMB) | payer MEDICARE, MEDICAID, SELFPAY ==
--- NOTE | 2024-02-25 13:11 | A.SPINEOV_ITS ---
Intake Visit Reasons: 1st post op Intake Note: Ms. Cynthia Ocampo is here today for her 1st post op. 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 Required: No Allergies fentanyl [FENTANYL] Allergy (Severe, Verified 02/25/24 13:34) ANAPHYLAXIS hydromorphone [From DILAUDID] Allergy (Severe, Verified 02/25/24 13:34) HIVES prednisolone Allergy (Severe, Verified 02/25/24 13:34) Anaphylaxis prednisone [PREDNISONE] Allergy (Severe, Verified 02/25/24 13:34) ANAPHYLAXIS acetaminophen [ACETAMINOPHEN] Allergy (Intermediate, Verified 02/25/24 13:34) ITCHY aspirin [From PERCODAN] Allergy (Intermediate, Verified 02/25/24 13:34) RASH ceftriaxone [CEFTRIAXONE] Allergy (Intermediate, Verified 02/25/24 13:34) RASH Cephalosporins [CEPHALOSPORINS] Allergy (Intermediate, Verified 02/25/24 13:34) Hives, Itching lorazepam [From ATIVAN] Allergy (Intermediate, Verified 02/25/24 13:34) HEADAHCE morphine [MORPHINE] Allergy (Intermediate, Verified 02/25/24 13:34) HIVES oxycodone [OXYCODONE] Allergy (Intermediate, Verified 02/25/24 13:34) ITCHY Penicillins [PENICILLINS] Allergy (Intermediate, Verified 02/25/24 13:34) SHORTNESS OF BREATH/ITCHING Assessment & Plan Assessment & Plan (1) S/P spinal fusion: Code(s): Z98.1 - Arthrodesis status Category: Surgical Plan Procedure: C5-7 ACDF Kaykay is a pleasant 48 y/o F who comes in today for her 1st postoperative visit after having C5-[address] Augustine. To recap she had an L4-5 TLIF completed back in November to addres her lumbar spine complaints. After surgery she continued to report severe neck pain, which Dr. Augustine treated with the aforementioned ACDF procedures. Unfortunately, for the last week or so she has been having severe neck pain and bilateral hand weakness/numbness. She feels her fingertips are completely numb. Her left-sided hand advanced seal delivery system strength is significantly lessened per report. She has been essentially miserable for the last week or so. She has been trying [id number] medications alongside prescription morphine without significant relief of her pain or paresthesias. I reviewed her x-ray imaging during this visit which shows stable placement of the surgical instrumentation with no changes from fluoroscopy. On examination, Kaykay has what I would call only slightly hyperactive reflexes. She has sensational changes which she reports as hypoesthesia diffusely throughout her fingertips. I left-sided hand advanced seal delivery system strength is about 3/5. Her left-sided biceps/triceps strength is about 4/5. The rest of her strength is 5/5 intact. (-) bilateral Balbuena's, (-) bilateral clonus. Due to Benny disclosure of new onset neurological deficits and weakness on examination I would like to order her a stat MRI to rule out any spinal cord impingement in the cervical spine postoperatively. I will follow up with her after the MRI is complete. This was discussed with the attending neurosurgeon Dr. Augustine who is in agreement. Damian Augustine MD,PhD [facility] Orders: Orders XR cervical spine 4V Today M54.12 - Radiculopathy, cervical region Coding Level of Care Code Global (71513) Diagnoses S/P spinal fusion Z98.1
== END 2024-02-25 14:11 | disposition home or self-care (01) ==
PROVIDERS: PCP Physician Assistant; Visit Provider Physician Assistant
DX: Z98.1 Arthrodesis status (principal)
CPT/HCPCS: 99024

== ENCOUNTER 2024-02-25 13:00 | Outpatient (REF) | payer MEDICARE, MEDICAID, SELFPAY | END 2024-02-25 13:01 | disposition home or self-care (01) | LOC: HO.HOSX 13:00 | PROVIDERS: PCP Physician Assistant; Visit Provider Physician Assistant | DX: M54.12 Radiculopathy, cervical region (principal); Z98.1 Arthrodesis status | CPT/HCPCS: 72050; 99212 ==

== ENCOUNTER 2024-02-26 13:58 | Outpatient (REF) | payer MEDICARE, MEDICAID, SELFPAY ==
--- NOTE | ~2024-02-26 | MR_ITS ---
EXAMINATION: MR CERVICAL SPINE WITHOUT CONTRAST CLINICAL INFORMATION: Paresthesia of skin COMPARISON: MRI cervical spine on 09/08/2023 TECHNIQUE: MRI of the cervical spine was obtained using routine sequences without contrast. FINDINGS: The imaged posterior fossa is unremarkable. Mild reversal of the normal cervical lordosis. No listhesis. Postsurgical of anterior fusion at C5-C7. Otherwise, no acute pulmonary abnormality. The vertebral body heights are preserved. Multilevel disc desiccation with mild disc height loss at C4-5. The visualized spinal cord is normal in caliber. No abnormal cord signal. C2-3: No significant spinal canal or foraminal narrowing. C3-4: Right greater than left facet arthrosis. No significant spinal canal and neural foraminal narrowing. C4-5: No significant spinal canal or foraminal narrowing. C5-6: Postsurgical changes. Mild right neural foraminal narrowing improved from prior. No residual left neural foraminal narrowing. No significant spinal canal stenosis. C6-7: Postsurgical changes. Moderate left neural foraminal narrowing, improved from prior. No significant spinal canal stenosis. C7-T1: No significant spinal canal or neural foraminal narrowing. The paravertebral soft tissues are unremarkable. MR/MR cervical spine wo con IMPRESSION: Sequelae of C5-C7 ACDF. There is improved neural foraminal narrowing at these levels, with mild residual on the right at C5-6 and moderate residual on the left at C6-7. Otherwise, multilevel degenerative changes without significant canal stenosis. Electronically signed by: Daren Ceidllo MD 02/26/2024 04:22 PM [facility]
== END 2024-02-26 13:59 | disposition home or self-care (01) ==
LOC: HO.MRI 13:58
PROVIDERS: PCP Physician Assistant; Visit Provider Physician Assistant
DX: R20.2 Paresthesia of skin (principal)
CPT/HCPCS: 72141

== ENCOUNTER 2024-05-16 16:31 | Emergency (ER) | payer MEDICARE, MEDICAID, SELFPAY ==
--- NOTE | 2024-05-16 16:38 | ECG_ITS ---
Test Reason : ?OD Blood Pressure : */* mmHG Vent. Rate : 78 BPM Atrial Rate : 78 BPM P-R Int : 134 ms QRS Dur : 94 ms QT Int : 402 ms P-R-T Axes : 64 38 32 degrees QTcB Int : 458 ms Normal sinus rhythm Normal ECG When compared with ECG of 28-Oct-2023 11:14, QT has lengthened Referred By: Demarco Matias Electronically Signed By: ROSAMARIA BACK
[2024-05-16 16:39] VITALS: BP 92/72; PULSE 100; RESP 16; O2SAT 98; BMI 25.8
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
[2024-05-16] MEDS: Haloperidol Lactate 5 MG/ML VIAL IVPUSH (16:49)
[2024-05-16] MEDS: Midazolam HCl 2 MG/2 ML VIAL IVPUSH (16:49)
[2024-05-16 16:53] LABS: MANUAL DIFF FLAG NO
[2024-05-16 16:55] LABS: Basophils Absolute Auto 0.1 X10*3/uL (0.0-0.2); Basophils Percent Auto 0.7 % (0-2); Eosinophils Absolute Auto 0.1 X10*3/uL (0.0-0.4); Eosinophils Percent Auto 0.7 % (0-4); Hematocrit 32.8 % (37.0-47.0); Imm Gran Abs Auto 0.03 X10*3/uL (0.00-0.03); Imm Gran Pct Auto 0.3 % (0.0-0.4); Lymphocytes Absolute Auto 2.6 X10*3/uL (1.2-4.9); Lymphocytes Percent Auto 22.8 % (20-40); Mean Corpuscular HGB Conc 33.5 g/dl (31.0-35.0); Mean Corpuscular Hemoglobin 29.4 pg (27.0-33.0); Mean Corpuscular Volume 87.7 fL (80.0-98.0); Monocytes Absolute Auto 0.9 X10*3/uL (0.1-1.2); Monocytes Percent Auto 7.8 % (2-11); Neutrophils Absolute Auto 7.6 x10*3/uL (2.0-8.3); Neutrophils Percent Auto 67.7 % (45-73); Platelet Count 325 X10*3/uL (160-400); Red Blood Count 3.74 X10*6/uL (4.20-5.50); Red Cell Distribution Width 14.6 % (11.0-16.0); White Blood Count 11.3 X10*3/uL (4.8-10.8)
[2024-05-16 17:11] LABS: Salicylate < 5.0 mg/dL (15-30)
[2024-05-16 17:16] LABS: Alanine Aminotransferase 14 U/L (0-31); Albumin Level 4.7 g/dL (3.5-5.0); Alkaline Phosphatase 94 U/L (39-117); Anion Gap 15 (12-20); Aspartate Amino Transferase 28 U/L (5-31); Bilirubin Total 0.9 mg/dL (0.0-1.0); Blood Urea Nitrogen 10 mg/dL (9-16); C Reactive Protein 0.48 mg/dL (< or = 0.50); Calcium 9.5 mg/dL (8.4-10.2); Carbon Dioxide 20 mmol/L (22-29); Chloride 110 mmol/L (96-108); Creatinine Clr Calc Pharmacy 103.9; Estimated Glomerular Filt Rate > 60; Ethanol < 10 mg/dL; Glucose Random 79 mg/dL (60-115); HCG Quantitative < 2 mIU/mL; Magnesium 2.1 mg/dL (1.6-2.6); Potassium 3.4 mmol/L (3.3-5.1); Sodium 142 mmol/L (135-145); Total Protein 8.4 g/dL (6.5-8.0); Troponin-I High Sensitivity 3.5 ng/L (<3.5-17.0)
[2024-05-16 17:42] VITALS: BP 92/49; PULSE 78; RESP 20; O2SAT 100
[2024-05-16 17:52] LABS: Erythrocyte Sedimentation Rate 27 MM/HR (0-20)
--- NOTE | 2024-05-16 18:05 | PC.NURSE ---
Pt. sleeping soundly on stretcher at this time, VSS. Belongings secured in sallyport closet. RHOADES/UA still needed.
[2024-05-16 19:47] VITALS: BP 116/68; PULSE 67; RESP 16; O2SAT 99
--- NOTE | 2024-05-16 20:59 | PC.NURSE ---
Patient cleared to go to pod by provider. RN to Rn phone report given to claudy, patient walked over to pod w/ no issues. Belongings brought to the pod so they can be locked in POD lockers.
--- NOTE | 2024-05-16 21:02 | PC.NURSE ---
IV removed before transfer to pod
[2024-05-16 21:26] LABS: Appearance Urine Cloudy; Color Urine Dark Yellow; Glucose Urine UA Negative (Negative); Leukocyte Esterase Urine Trace (Negative); Nitrite Urine Negative (Negative); PH 5.5 (5.0-9.0); Specific Gravity - Urine >= 1.030 (1.005-1.025); UMIC TRIGGER UACC YES; Urine Blood Large (3+) (Negative); Urine Ketones 40 mg/dL (Negative); Urine Protein 30 (1+) mg/dL (Neg-Trace)
[2024-05-16 21:29] LABS: Bacteria Urine 1+ (None Seen); Hyaline Casts Urine 0-2 /LPF (0-2); RBC Urine >20 /HPF (0-2); UACC Culture Trigger YES
[2024-05-16 21:36] LABS: Amphetamine Screen Urine Not Detected (Not Detect); Barbiturates, Urine Not Detected (Not Detect); Benzodiazepines Screen Urine POSITIVE (Not Detect); Buprenorphine Scr Not Detected (Not Detect); Cannabinoid Screen Urine POSITIVE (Not Detect); Cocaine Screen Urine POSITIVE (Not Detect); Fentanyl, urine Not Detected (Not Detect); Methadone Screen, Urine Not Detected (Not Detect); Opiate Screen Urine POSITIVE (Not Detect); Oxycodone Screen Urine Not Detected (Not Detect); Phencyclidine Screen Urine Not Detected (Not Detect)
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
--- NOTE | 2024-05-16 21:44 | PC.NURSE ---
Pt arrives in the Pod, calm and cooperative, reports no concerns, expresses wanting to be discharged. Denies SI/HI. Evaluated by the care team and is to be discharged.
[2024-05-16 21:46] VITALS: BP 116/68; PULSE 67; RESP 16; TEMP -17.7; TEMP 0; O2SAT 99
== END 2024-05-16 21:46 | disposition home or self-care (01) ==
PROVIDERS: Emergency Provider Emergency Medicine Emergency Medical Services; PCP Physician Assistant
DX: F41.0 Panic disorder [episodic paroxysmal anxiety] (principal); F14.90 Cocaine use, unspecified, uncomplicated; F11.10 Opioid abuse, uncomplicated; F41.9 Anxiety disorder, unspecified; F33.1 Major depressive disorder, recurrent, moderate; F17.210 Nicotine dependence, cigarettes, uncomplicated; Z79.899 Other long term (current) drug therapy; Z51.81 Encounter for therapeutic drug level monitoring
CPT/HCPCS: 36415; 80053; 80179; 80307; 81001; 83735; 84484; 84702; 85025; 85652; 86140; 87086; 93005; 96374; 96375; 99285; J1630; J2250

== ENCOUNTER → 2024-05-16 16:38 | Outpatient (BNV) | payer MEDICARE, MEDICAID, SELFPAY | PROVIDERS: Emergency Provider Emergency Medicine Emergency Medical Services; PCP Physician Assistant; Visit Provider Internal Medicine | DX: T50.901A Poisoning by unspecified drugs, medicaments and biological substances, accidental (unintentional), initial encounter (principal) | CPT/HCPCS: 93010 ==

== ENCOUNTER 2024-08-19 12:51 | Outpatient (AMB) | payer MEDICARE, MEDICAID, SELFPAY ==
[2024-08-19 12:54] VITALS: BP 124/78; PULSE 80; TEMP 36.2; O2SAT 98; BMI 23.6
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
== END 2024-08-19 13:27 | disposition home or self-care (01) ==
LOC: HO.HMCH 12:52
PROVIDERS: PCP Physician Assistant; Visit Provider Physician Assistant
DX: Z98.1 Arthrodesis status (principal); R41.89 Other symptoms and signs involving cognitive functions and awareness; M32.9 Systemic lupus erythematosus, unspecified

== ENCOUNTER → 2024-08-19 12:51 | Outpatient (BNVA) | payer MEDICARE, MEDICAID, SELFPAY | PROVIDERS: PCP Physician Assistant; Visit Provider Physician Assistant | DX: Z98.1 Arthrodesis status (principal); R41.89 Other symptoms and signs involving cognitive functions and awareness; M32.9 Systemic lupus erythematosus, unspecified | CPT/HCPCS: 96127; 99212 ==

== ENCOUNTER 2024-08-26 14:00 | Outpatient (AMB) | payer MEDICARE, MEDICAID, SELFPAY ==
--- NOTE | 2024-08-26 14:17 | HO.SPINEOV ---
Intake Visit Reasons: Persistantly increasing pain Intake Note: Ms. Cynthia Ocampo is here today c/o persistant increasing back pain. Road Patcher Required: No Allergies fentanyl (FENTANYL) Allergy (Severe, Verified 08/26/24 14:18) ANAPHYLAXIS hydromorphone (From DILAUDID) Allergy (Severe, Verified 08/26/24 14:18) HIVES prednisolone Allergy (Severe, Verified 08/26/24 14:18) Anaphylaxis prednisone (PREDNISONE) Allergy (Severe, Verified 08/26/24 14:18) ANAPHYLAXIS acetaminophen (ACETAMINOPHEN) Allergy (Intermediate, Verified 08/26/24 14:18) ITCHY aspirin (From PERCODAN) Allergy (Intermediate, Verified 08/26/24 14:18) RASH ceftriaxone (CEFTRIAXONE) Allergy (Intermediate, Verified 08/26/24 14:18) RASH Cephalosporins (CEPHALOSPORINS) Allergy (Intermediate, Verified 08/26/24 14:18) Hives, Itching lorazepam (From ATIVAN) Allergy (Intermediate, Verified 08/26/24 14:18) HEADAHCE morphine (MORPHINE) Allergy (Intermediate, Verified 08/26/24 14:18) HIVES oxycodone (OXYCODONE) Allergy (Intermediate, Verified 08/26/24 14:18) ITCHY Penicillins (PENICILLINS) Allergy (Intermediate, Verified 08/26/24 14:18) SHORTNESS OF BREATH/ITCHING Assessment & Plan Assessment & Plan (1) Cervical radiculopathy: Code(s): M54.12 - Radiculopathy, cervical region Category: Medical (2) S/P spinal fusion: Code(s): Z98.1 - Arthrodesis status Category: Medical Plan Mrs Cynthia Ocampo is here in follow-up today. She had been doing excellent from the standpoint of her previous anterior cervical fusion as well as lumbar fusion surgeries. She had been active, doing a lot of exercises and overall just enjoying a good quality of life until about maybe 3 or 4 months ago when she started to notice increasing amounts of pain. Specifically with regard to her cervical spine she has pain in the midline of her cervical region radiating posteriorly up to her head as well as pain in her subscapular region and bilateral arm pain. This is all superimposed on lupus which can exacerbate all of these issues. Additionally, her legs have felt weak and she has had a number of falls. She also reports that she has had feelings of pain down her thighs and when that happens, she will anticipate that her legs are going to go out from underneath her with a rapid sense of weakness. She has also had altered sensations of feelings of dysesthesia like there is a hand grabbing her shoulder and feelings like water have splayed over her arms. On my exam, she appears comfortable walking, but she has tenderness all along her cervical spine region. She has weakness of her hands bilaterally. Slightly brisk reflexes in the upper and lower extremities. Rest of her motor examination strength is normal. I am going to get a set of x-rays of her cervical and lumbar spine. She is far enough out from surgery that I expect these just to show stable postsurgical changes, but I believe it would be more appropriate to get an MRI to evaluate what is going on a little further. She has been taking Tylenol and being jehovah's witness with doing rehabilitation type exercises with bands as well as staying active and losing weight. I would like to look at not only her cervical but her lumbar as she is having recurrent leg pain as well. I will see her back after the imaging. Total amount of time spent in this visit was 20 minutes in discussion of symptoms, ordering imaging and subsequent plan of care Camron Augustine MD,PhD [facility] Orders: Orders MR lumbar spine wo con Today Z98.1 - Arthrodesis status MR cervical spine wo con Today M54.12 - Radiculopathy, cervical region XR cervical spine 4V Today M54.12 - Radiculopathy, cervical region XR lumbar spine 4V min Today Z98.1 - Arthrodesis status Coding Level of Care Code Est Pt Level 3 (17329) Diagnoses Cervical radiculopathy M54.12 S/P spinal fusion Z98.1
== END 2024-08-26 15:37 | disposition home or self-care (01) ==
PROVIDERS: PCP Physician Assistant; Visit Provider Physician Assistant
DX: M54.12 Radiculopathy, cervical region (principal); Z98.1 Arthrodesis status
CPT/HCPCS: 99213

== ENCOUNTER 2024-08-26 14:00 | Outpatient (REF) | payer MEDICARE, MEDICAID, SELFPAY ==
--- NOTE | ~2024-08-26 | XR_ITS ---
EXAMINATION: XR CERVICAL SPINE CLINICAL INFORMATION: M54.12 - Radiculopathy, cervical region COMPARISON: February 25, 2024. TECHNIQUE: AP, lateral, atlantodental interval views and lateral views during flexion and extension position. FINDINGS: Status post intervertebral disc spacer placement C5-6 and C6-7 levels. Multilevel small marginal osteophyte formation C3 C5. Reverse curvature apex at C4-5. Grade 1 anterolisthesis C4-5 and C3-4. Craniocervical junction is intact. No lytic or blastic lesions. There is reduction of the anterolisthesis during extension position. There is no motion during flexion position. XR/XR cervical spine 4V IMPRESSION: Unstable grade 1 anterolisthesis C3-4 and C4-5. Electronically signed by: Doroteo De MD 08/26/2024 03:25 PM EDT
--- NOTE | ~2024-08-26 | XR_ITS ---
EXAMINATION: X-ray lumbar spine CLINICAL INFORMATION: Arthrodesis. TECHNIQUE: AP and lateral projections. Lateral projections during flexion and extension position. COMPARISON: July 11, 2023. FINDINGS: Grade 1 retrolisthesis at L2-3 and L3-4 levels with the minimal motion during flexion position. Trans-pedicles screws bilaterally at L4 and L5 and anchor with vertical rods. Transpedicular screws at S1 without connecting rods. Status post intervertebral disc spacer at L4-5. Arthrodesis L5-S1. Marginal osteophyte formation at L2-3 and to a lesser extent L3-4 with mild endplate sclerosis. S-shaped curvature of the lumbar spine. No acute cortical disruption. No lytic or blastic lesions. XR/XR lumbar spine 4V min IMPRESSION: New status post posterior lumbar fusion L4-5 and intervertebral disc spacer placement. Subtle instability at the grade 1 retrolisthesis L2-3 and L3-4 levels. Electronically signed by: Doroteo De MD 08/26/2024 03:30 PM EDT
== END 2024-08-26 14:01 | disposition home or self-care (01) ==
LOC: HO.HOSX 14:00
PROVIDERS: PCP Physician Assistant; Visit Provider Physician Assistant
DX: M54.12 Radiculopathy, cervical region (principal); Z98.1 Arthrodesis status; M43.12 Spondylolisthesis, cervical region
CPT/HCPCS: 72050; 72110; 99212

== ENCOUNTER → 2024-08-26 15:02 | Outpatient (BNV) | payer MEDICARE, MEDICAID, SELFPAY | PROVIDERS: PCP Physician Assistant; Visit Provider Radiology Diagnostic Radiology | DX: M54.12 Radiculopathy, cervical region (principal); M43.26 Fusion of spine, lumbar region | CPT/HCPCS: 72050; 72110 ==

== ENCOUNTER 2024-08-29 19:11 | Outpatient (REF) | payer MEDICARE, MEDICAID, SELFPAY ==
--- NOTE | ~2024-08-29 | MR_ITS ---
EXAMINATION: MR BRAIN WITHOUT IV CONTRAST HISTORY: R41.89 - Other symptoms and signs involving cognitive functions and awareness... TECHNIQUE: Sagittal T1, and axial T1, FLAIR, T2, gradient echo, and diffusion weighted MR images of the brain were obtained. COMPARISON: Correlation is made with an unenhanced head CT dated 04/02/2022. FINDINGS: The brain parenchyma is unremarkable, demonstrating normal hennessy/white differentiation. No foci of abnormal signal intensity are identified. The ventricular system is normal in size and configuration. There is no mass effect or midline shift. The pituitary is normal in size. No intra or extra-axial fluid collections are identified. There are no foci of restricted diffusion. Normal vascular flow voids are noted in the basilar and carotid arteries. The visualized paranasal sinuses are clear. MR/MR head/brain wo con IMPRESSION: No acute intracranial abnormality. Electronically signed by: Daniel Trevino MD 08/30/2024 09:39 AM EDT
== END 2024-08-29 19:12 | disposition home or self-care (01) ==
LOC: HO.MRI 19:11
PROVIDERS: PCP Physician Assistant; Visit Provider Physician Assistant
DX: R41.89 Other symptoms and signs involving cognitive functions and awareness (principal)
CPT/HCPCS: 70551

== ENCOUNTER → 2024-08-29 19:21 | Outpatient (BNV) | payer MEDICARE, MEDICAID, SELFPAY | PROVIDERS: PCP Physician Assistant; Visit Provider Radiology Diagnostic Radiology | DX: R41.89 Other symptoms and signs involving cognitive functions and awareness (principal) | CPT/HCPCS: 70551 ==

== ENCOUNTER → 2024-08-30 19:14 | Outpatient (BNV) | payer MEDICARE, MEDICAID, SELFPAY | PROVIDERS: PCP Physician Assistant; Visit Provider Radiology Diagnostic Radiology | DX: M47.816 Spondylosis without myelopathy or radiculopathy, lumbar region (principal); M99.63 Osseous and subluxation stenosis of intervertebral foramina of lumbar region; M47.812 Spondylosis without myelopathy or radiculopathy, cervical region; M99.61 Osseous and subluxation stenosis of intervertebral foramina of cervical region | CPT/HCPCS: 72141; 72148 ==

== ENCOUNTER 2024-08-30 19:15 | Outpatient (REF) | payer MEDICARE, MEDICAID, SELFPAY ==
--- NOTE | ~2024-08-30 | MR_ITS ---
EXAMINATION: MR LUMBAR SPINE WITHOUT CONTRAST CLINICAL INFORMATION: Arthrodesis status. COMPARISON: July 30, 2023. TECHNIQUE: MRI of the lumbar spine was obtained using routine sequences without contrast. FINDINGS: Last rib-bearing vertebra labeled T12. Paramagnetic field distortion secondary to metallic hardware from L4 to S1. No bone marrow STIR signal abnormality. Disc desiccation, L2-3 and L3-4. Decreased intervertebral disc height at L2-3. Grade 1 retrolisthesis L2-3 and L3-4 levels. Arthrodesis L5-S1. Conus medullaris ends at pedicle of L1 with normal signal. There is no grouping or clumping of the neural elements of the filum terminalis. No thecal empty sign. T11-12: No disc herniation. No neuroforamina stenosis. T12-L1: No disc herniation. No neuroforamina stenosis. L1-2: Broad-based disc bulging. No compression upon neural elements. L2-3: Broad-based disc bulging. Facet joint and ligamentum flavum hypertrophy. Reduced AP diameter of the thecal sac and neuroforamina. L3-4: Broad-based disc bulging. Facet joint and ligamentum flavum hypertrophy. Central spinal canal and bilateral neuroforamina stenosis likely encroaching the neural elements. L4-5: Post surgical changes. No central spinal canal stenosis. Questionable left neuroforamina narrowing on a degenerative basis. L5-S1: Postsurgical changes. No central spinal canal stenosis. No neuroforamina stenosis. Fatty atrophy of the lower lumbar muscles from L4-5 to sacrum. No prevertebral compartment hematoma, mass or fluid collection. Hyperintense T2 cystic lesions in the kidneys, the largest measures 2 cm in the right kidney. MR/MR lumbar spine wo con IMPRESSION: Spondylosis and grade 1 retrolisthesis L3-4 and to a lesser extent L2-3 resulting in central spinal canal and bilateral neuroforamina stenosis at L3-4 likely encroaching the neural elements. Electronically signed by: Doroteo De MD 08/31/2024 07:24 AM EDT
--- NOTE | ~2024-08-30 | MR_ITS ---
EXAMINATION: MR CERVICAL SPINE WITHOUT CONTRAST CLINICAL INFORMATION: Radiculopathy, cervical region COMPARISON: February 26, 2024. Correlated to x-ray dictated August 26, 2024. TECHNIQUE: MRI of the cervical spine was obtained using routine sequences without contrast. FINDINGS: Paramagnetic field distortion secondary to metallic hardware at C5-6 and C6-7 levels. Craniocervical junction is intact. No bone marrow STIR signal abnormality. Reverse curvature apex at C4-5. Grade 1 anterolisthesis C3-4 C4-5 and C7-T1 levels. Cervical spinal cord signal is normal. Cerebellar tonsils are at the foramen magnum level. C2-3: Central disc osteophyte complex formation. No compression upon neural elements. C3-4: Broad-based disc osteophyte compresses formation. No cord compression. No neuroforamina stenosis. C4-5: Broad-based disc osteophyte compresses formation resulting in ventral deformity of the thecal sac. No cord compression. No neuroforamina stenosis. C5-6: Broad-based disc osteophyte compresses formation resulting in ventral deformity of the thecal sac. No cord compression. Right neuroforamina narrowing on a degenerative basis. C6-7: Left-sided disc osteophyte complex formation. No cord compression. Left neuroforamina narrowing on a degenerative basis. C7-T1: No disc herniation. No neuroforamina stenosis. No prevertebral compartment hematoma, mass or fluid collection. Flow-void signal within the main vessels is normal. Codominant vertebral arteries. Nonspecific prominent cervical lymph nodes. MR/MR cervical spine wo con IMPRESSION: [place] deformity apex at C4-5 and multilevel spondylosis C3 C7 resulting in right neuroforamina narrowing at C5-6 and left neuroforamina narrowing at C6-7. No cord compression, cord edema and or myelopathy. Electronically signed by: Doroteo De MD 08/31/2024 07:17 AM EDT
== END 2024-08-30 19:16 | disposition home or self-care (01) ==
LOC: HO.MRI 19:15
PROVIDERS: PCP Physician Assistant; Visit Provider Physician Assistant
DX: M54.12 Radiculopathy, cervical region (principal); Z98.1 Arthrodesis status
CPT/HCPCS: 72141; 72148

== ENCOUNTER 2024-11-03 14:28 | Outpatient (REF) | payer MEDICARE, MEDICAID, SELFPAY ==
--- NOTE | ~2024-11-03 | XR_ITS ---
EXAMINATION: XR LUMBAR SPINE 4 OR MORE VIEWS HISTORY: M54.50 - Low back pain, unspecified COMPARISON: Comparison is made with the prior examination dated 08/26/2024. FINDINGS: AP, and neutral, flexion, and extension lateral views of the lumbar spine are submitted. Osseous mineralization is normal. The patient is again noted to be status post posterior fusion of L4 and L5 with pedicle screws and spinal stabilization rods. Additional pedicle screws are noted at S1. An intervertebral spacer is seen at L4-5 and L5-S1. The vertebral bodies maintain normal height. There is slight retrolisthesis of L3 on L4 measuring 3 mm. This does not change with flexion or extension. There is degenerative disc disease at L2-3 with disc space narrowing and osteophyte formation. The visualized paraspinal soft tissues are unremarkable. XR/XR lumbar spine 4V min IMPRESSION: Status post posterior fusion of L4-S1. Slight retrolisthesis of L3 on L4 without change with flexion or extension. Electronically signed by: Daniel Trevino MD 11/03/2024 03:40 PM EDT
== END 2024-11-03 14:29 | disposition home or self-care (01) ==
LOC: HO.HOSX 14:28
PROVIDERS: PCP Physician Assistant; Visit Provider Physician Assistant
DX: M54.50 Low back pain, unspecified (principal)
CPT/HCPCS: 72110

== ENCOUNTER → 2024-11-03 15:19 | Outpatient (BNV) | payer MEDICARE, MEDICAID, SELFPAY | PROVIDERS: PCP Physician Assistant; Visit Provider Radiology Diagnostic Radiology | DX: M43.16 Spondylolisthesis, lumbar region (principal) | CPT/HCPCS: 72110 ==

== ENCOUNTER 2024-11-22 13:50 | Outpatient (AMB) | payer MEDICARE, MEDICAID, SELFPAY ==
--- NOTE | 2024-11-22 13:55 | A.OFFPC_ITS ---
Vital Signs 11/22/24 13:56 Height 5 ft 6 in Weight 149 lb 2 oz BMI 24.1 BP 120/80 Blood Pressure Location Lt brachial Position Sitting Pulse 73 Pulse Source Pulse Oximeter Temp 97.3 F Temp Source Temporal Artery Scan Pulse Oximetry (%) 99 Oxygen Delivery Method Room Air Intake Visit Reasons: f/u Lupus Intake Note: Patient is here to follow up on Lupus. Cable Television Line Technician Required: No Die Baker: Present Accompanied by: Daughter Allergies fentanyl (FENTANYL) Allergy (Severe, Verified 11/22/24 14:14) ANAPHYLAXIS hydromorphone (From DILAUDID) Allergy (Severe, Verified 11/22/24 14:14) HIVES prednisolone Allergy (Severe, Verified 11/22/24 14:14) Anaphylaxis prednisone (PREDNISONE) Allergy (Severe, Verified 11/22/24 14:14) ANAPHYLAXIS acetaminophen (ACETAMINOPHEN) Allergy (Intermediate, Verified 11/22/24 14:14) ITCHY aspirin (From PERCODAN) Allergy (Intermediate, Verified 11/22/24 14:14) RASH ceftriaxone (CEFTRIAXONE) Allergy (Intermediate, Verified 11/22/24 14:14) RASH Cephalosporins (CEPHALOSPORINS) Allergy (Intermediate, Verified 11/22/24 14:14) Hives, Itching lorazepam (From ATIVAN) Allergy (Intermediate, Verified 11/22/24 14:14) HEADAHCE morphine (MORPHINE) Allergy (Intermediate, Verified 11/22/24 14:14) HIVES oxycodone (OXYCODONE) Allergy (Intermediate, Verified 11/22/24 14:14) ITCHY Penicillins (PENICILLINS) Allergy (Intermediate, Verified 11/22/24 14:14) SHORTNESS OF BREATH/ITCHING Medication List - Last Reconciled 11/22/24 by Miah Mendoza PA-C acetaminophen ER 650 mg PO Q12H 30 days albuterol sulfate 90 mcg/actuation (Ventolin HFA) 1 inh inhalation QID 30 days baclofen 10 mg PO TID PRN diazepam (Valium) 5 mg PO BID 1 day diphenhydramine HCl 25 mg PO TID PRN Held on 11/12/23. Instructions: Resume on 12/12/23. use prescribed medication hydroxychloroquine 100 mg PO BID 90 days mometasone 100 mcg/actuation (Asmanex HFA) 1 puff inhalation DAILY PRN TENS unit electrodes As directed TENS units (TENS 502 device) As directed tramadol 50 mg PO BID 4 days [wheelchair As directed] Tobacco use date assessed: 11/22/24 Dental Screening Dental Screen Date: 08/19/24 HPI f/u Lupus HPI Details Patient is a 48-year-old female here today for follow-up visit. Patient has a past medical history significant for major depressive disorder, lupus, fibromyalgia asthma spinal surgeries with hardware placement in 2018. Lower back pain: --> Ivvette reports severe pain and mob ility issues related to degenerative disc disease and possible lupus myelitis. Approximately three weeks ago, the patient experienced a near fall in the shower, which exacerbated her existing back issues. She reports significant pain when lying down, describing a sensation of disconnection in her leg and difficulty lifting it. The patient has a history of degenerative disc disease with bone spurs present in most discs, as confirmed by previous cervical x-rays. She has been unable to sleep due to pain, which she rates over 10 on a scale of 1 to 10, and has difficulty getting up from a lying position. Lupus: Patient continues on hydroxychloroquine for quite some time now. She has not seen a photographer model in quite some time and she is interested in reestablishing for further monitoring her lupus. [facility] Medical History (Updated 11/22/24 @ 14:40 by Miah Mendoza PA-C) Seizure Family history of anesthesia complication Back pain DDD (degenerative disc disease), cervical DDD (degenerative disc disease), lumbar Depression Multiple drug allergies Seizure-like activity Kidney stone Ovarian cyst Chronic fatigue Asthma Osteopenia Lupus Surgical History Hx of lumbar discectomy Hx of hand surgery History of surgery Hx of cone biopsy of cervix Hx of lithotripsy History of lumbosacral spine surgery Hx of section Social History Household Members: Children Household Members Other:: daughter Housing: Apartment Are you a primary care transitions nurse to a significant other at home: No Do you presently have visiting nurse or other home services: No Comment: uses on occasion Patient Tobacco Use Status: Current everyday Tobacco user Tobacco use type: Cigarette Cigarette Packs Per Day: 0.25 Cigarettes Per Day: 2 Years Smoked: 20 e-Cigarette/Vaping Use: Never Used Second Hand Smoke Exposure: Yes Substance Use Type: Marijuana service: No Current occupational status: disabled Current occupation: rt handed Cognitive needs: No Hearing needs: No Vision needs: No Female Reproductive History Menstrual Age of Menarche: 14 Questionnaire Thrive Questionnaire Date Thrive assessed: 08/19/24 I am a: Patient What is your living situation today?: I have a steady place to live Within the past 12 months, did the food you bought not last and you didn't have the money to get more?: Sometimes True Within the past 12 months, did you worry whether your food would run out before you got money to buy more?: I choose not to answer this question Do you have trouble paying for medicines?: No Do you have trouble getting transportation to medical appointments?: No Do you have trouble paying your heating and electricity bill?: No Do you have trouble taking care of your child, family member or friend?: No Do you have trouble with day-to-day activities such as bathing, preparing meals, shopping, managing finances, etc.?: No Are you currently unemployed and looking for a job?: No Are you interested in more education?: No Please select the resources that you would like help with: None Currently or been in a relationship where the following occur: No concerns reported THRIVE Score: 1 DILEEP-7 AMB Questionnaire DILEEP-7 Date DILEEP - 7 assessed: 08/19/24 Source: Developed by Drs. Daniel Prado, Tamy Fields, John Rai and colleagues, with an educational morgan from [facility]. Review of Systems Const Denies headache(s) Eyes Denies loss of vision ENT Denies vertigo, Denies dizziness, Denies headache(s) and Denies sore throat Card Denies chest pain, Denies leg edema and Denies lightheadedness Resp Denies cough, Denies hemoptysis and Denies wheezing GI Denies abdominal pain, Denies melena, Denies constipation, Denies diarrhea and Denies vomiting Denies urinary frequency, Denies dysuria and Denies urinary urgency Musc Denies arthralgias, Denies joint swelling, Denies numbness and Denies tingling Neuro Denies Abnormal speech present, Denies behavioral changes, Denies vertigo, Denies dizziness, Denies headache(s), Denies loss of vision, Denies memory loss, Denies numbness and Denies tingling Psych Denies anxiety, Denies behavioral changes, Denies depression, Denies memory loss and Denies panic attacks Juan Manuel/Lymph Denies easy bleeding and Denies easy bruising Aller/Immun Denies wheezing Physical exam (Primary Care) Vital Signs: Last Vital Signs Temp 97.3 F 11/22/24 13:56 Pulse 73 11/22/24 13:56 BP 120/80 11/22/24 13:56 Pulse Ox 99 11/22/24 13:56 Oxygen Delivery Method Room Air 11/22/24 13:56 BMI result Body Mass Index 24.1 Tobacco/Smoking Status: Tobacco use Status Tobacco use date assessed 11/22/24 11/22/24 14:03 Patient Tobacco Use Status Current everyday Tobacco 11/22/24 14:03 Tobacco use type Cigarette 11/22/24 14:03 e-Cigarette/Vaping Use Never Used 11/22/24 14:03 Thrive Assessment: Date of Thrive Assessment Date Thrive assessed 08/19/24 11/22/24 14:03 Currently or been in a relationship where the following occur: No concerns reported Const General: healthy appearing, no acute distress, alert and awake Nutritional Appearance: well nourished Orientation/consciousness: oriented to person, oriented to place and oriented to time HENMT Ears: TM's normal bilaterally General nose exam: Normal nasal mucous membranes and turbinates present Eyes Conjunctivae: conjunctivae normal Sclerae: sclerae normal Pupils: Equal, round and reactive pupils present Neck Neck: Yes no lymphadenopathy and Yes no JVD Thyroid: Thyroid normal Carotids: no bruits Resp Effort & Inspection: normal respiratory effort and not tachypneic Auscultation: no crackles, no rales, no rhonchi and no wheezes Cardio Rate: regular rate Rhythm: regular rhythm Heart sounds: no murmurs and normal S1 and S2 GI Palpation (GI): Soft to palpation, nontender, no hepatomegaly and no splenomegaly Auscultation: normal bowel sounds Back/Spine/Pelvis Other: APPEARS AN OBVIOUS DISCOMFORT. SITTING IN THE POSITION OF COMFORT HER, ABLE TO AMBULATE WITH AN ANTALGIC GAIT Skin General skin exam: no rashes or lesions noted and dry skin Neuro General: oriented to person, oriented to place and oriented to time Cranial nerves: Yes Equal, round and reactive pupils present Speech: No Abnormal speech present Gait exam (Neuro): Normal gait present Motor exam (neuro): no tremor noted Extrem Right upper extremity: full ROM Left upper extremity: full ROM Right lower extremity: full ROM; no edema Left lower extremity: full ROM; no edema Psych Mental Status: mental status grossly normal Speech and movement: Normal speech and movement present Affect: normal affect Attitude: cooperative Thought process: Normal thought process present Coding Level of Care Code Est Pt Level 4 (89249) Diagnoses Systemic lupus erythematosus, unspecified SLE type, unspecified organ involvement status M32.9 Systemic lupus erythematosus organ involvement: unspecified Systemic lupus erythematosus type: unspecified Spinal stenosis of lumbar region with neurogenic claudication M48.062 Neurogenic claudication status: with neurogenic claudication Assessment & Plan Assessment & Plan (1) Lupus (systemic lupus erythematosus): Code(s): M32.9 - Systemic lupus erythematosus, unspecified Category: Medical Qualifiers: Systemic lupus erythematosus organ involvement: unspecified Systemic lupus erythematosus type: unspecified Qualified Code(s): M32.9 - Systemic lupus erythematosus, unspecified Plan: Has per HPI patient willing to see a new photographer model for her lupus. She continues on hydroxychloroquine for her lupus. Will refer to Rheumatology for further monitoring of her lupus state and recommendations (2) Lumbar spinal stenosis: Code(s): M48.061 - Spinal stenosis, lumbar region without neurogenic claudication Category: Medical Qualifiers: Neurogenic claudication status: with neurogenic claudication Qualified Code(s): M48.062 - Spinal stenosis, lumbar region with neurogenic claudication Plan: The patient will undergo a bone density test to evaluate bone health and determine the extent of degenerative changes. Pain management options include t he use of Valium for anxiety and pain relief, with a referral to pain management for further evaluation. We did discuss the habit-forming nature of Valium and patient does agree and understand to use this medication on as needed basis for pain scales of 9-10. Advised to try tremor to see if it offers her any pain relief. Otherwise acetaminophen and baclofen a mainstay of her pain management Orders: Orders XR DEXA axial skeleton 11/22/24 M32.9 - Systemic lupus erythematosus, unspecified TSH reflex Free T4 11/22/24 D84.9 - Immunodeficiency, unspecified Referrals Rheumatology Referral M32.9 - Systemic lupus erythematosus, unspecified Pain Management Referral M54.16 - Radiculopathy, lumbar region Medications: Changed From diazepam (Valium) 5 mg PO BID 1 day 2 tabs 0RF muscle spasm Z98.1 - Arthrodesis status To diazepam (Valium) 5 mg PO BID 14 tabs 0RF muscle spasm 7 days Z98.1 - Arthrodesis status Refilled TENS units (TENS 502 device) As directed 1 ea 0RF M54.12 - Radiculopathy, cervical region TENS unit electrodes As directed 10 ea 0RF M54.12 - Radiculopathy, cervical region [wheelchair] As directed 1 ea 0RF M54.16 - Radiculopathy, lumbar region
[2024-11-22 13:56] VITALS: BP 120/80; PULSE 73; TEMP 36.3; O2SAT 99; BMI 24.1
== END 2024-11-22 14:40 | disposition home or self-care (01) ==
LOC: HO.HMCH 13:51
PROVIDERS: PCP Physician Assistant; Visit Provider Physician Assistant
DX: M32.9 Systemic lupus erythematosus, unspecified (principal); M48.062 Spinal stenosis, lumbar region with neurogenic claudication

== ENCOUNTER → 2024-11-22 13:50 | Outpatient (BNVA) | payer MEDICARE, MEDICAID, SELFPAY | PROVIDERS: PCP Physician Assistant; Visit Provider Physician Assistant | DX: M32.9 Systemic lupus erythematosus, unspecified (principal); M48.062 Spinal stenosis, lumbar region with neurogenic claudication; F17.200 Nicotine dependence, unspecified, uncomplicated; Z71.6 Tobacco abuse counseling | CPT/HCPCS: 99212 ==

== ENCOUNTER 2024-11-27 07:07 | Outpatient (REF) | payer MEDICARE, MEDICAID, SELFPAY ==
--- NOTE | ~2024-11-27 | CT_ITS ---
EXAMINATION: CT LUMBAR SPINE WITHOUT CONTRAST TECHNIQUE: Axial imaging was performed from mid T11 through the lower sacrum coccygeal region without IV contrast. Coronal and sagittal reformatted images were generated from the original axial data set. ALARA: The examination used one or more of the following radiation dose reduction techniques: Automated exposure control, iterative reconstruction, and/or adjustment of mA and/or kV. INDICATION: Z98.1 - Arthrodesis status PRIOR: X-ray on November 03, 2024 FINDINGS: There were 5 [id number] lumbar segments. There are posterior pedicle screws at L4, L5, and S1. Rods connect L4 and L5. In the right spaces are evident at L4-5 and L5-S1. There is a benign simple renal cyst in the medial mid right kidney. Visualized soft tissues are otherwise unremarkable. T12-L1: Unremarkable L1-L2: Unremarkable L2-L3: There is moderate disc space during, there is vacuum phenomena anteriorly. There is anterior sclerosis and osteophytes. There is subtle retrolisthesis. There is broad-based disc bulge without spinal stenosis or foraminal narrowing. L3-L4: There is mild grade 1 retrolisthesis and mild disc space narrowing. There is broad-based disc bulge with ligamentum flavum hypertrophy and mild facet degeneration. There is no gross spinal stenosis. There is mild foraminal narrowing and left subarticular zone narrowing. L4-L5: There is interbody spacer with bone graft. There is mild subsidence of the spacer to L4 anteriorly. There is mixed attenuation of bone graft material. There appears to be bridging posterior centrally. There is persistent lucency between bone graft and vertebral bodies anterior centrally. There is mild foraminal narrowing L5-S1: There is interbody cage and bone graft material with broad integration of graft material into L5 and S1 vertebral bodies. CT/CT lumbar spine wo IV con IMPRESSION: L4-5 interbody fusion. There is degeneration of bone graft material posteriorly and incompletely integration anteriorly. L5-S1 interbody fusion with good integration of bridging bone across the interbody space. Degenerative disc disease at other levels, as described above. Electronically signed by: Gustabo Nicole MD 11/29/2024 10:05 AM EDT
== END 2024-11-27 07:08 | disposition home or self-care (01) ==
LOC: HO.CT 07:07
PROVIDERS: PCP Physician Assistant; Visit Provider Physician Assistant
DX: Z98.1 Arthrodesis status (principal)
CPT/HCPCS: 72131

== ENCOUNTER → 2024-11-27 07:08 | Outpatient (BNV) | payer MEDICARE, MEDICAID, SELFPAY | PROVIDERS: PCP Physician Assistant; Visit Provider Radiology Diagnostic Radiology | DX: M51.369 Other intervertebral disc degeneration, lumbar region without mention of lumbar back pain or lower extremity pain (principal); Z98.1 Arthrodesis status | CPT/HCPCS: 72131 ==

== ENCOUNTER 2024-11-30 14:32 | Outpatient (AMB) | payer MEDICARE, MEDICAID, SELFPAY ==
--- NOTE | 2024-11-30 14:36 | MHC.OFFVIS ---
Vital Signs 11/30/24 14:37 Height 5 ft 6 in Weight 149 lb BMI 24.0 BP 146/83 H Blood Pressure Location Rt brachial Position Sitting Respiration 16 Pulse 102 H Pulse Source Pulse Oximeter Pulse Oximetry (%) 100 Oxygen Delivery Method Room Air Intake Visit Reasons: Radiculopathy, lumbar region Patient Care Provider Required: No Accompanied by: Daughter Allergies fentanyl (FENTANYL) Allergy (Severe, Verified 11/30/24 15:00) ANAPHYLAXIS hydromorphone (From DILAUDID) Allergy (Severe, Verified 11/30/24 15:00) HIVES prednisolone Allergy (Severe, Verified 11/30/24 15:00) Anaphylaxis prednisone (PREDNISONE) Allergy (Severe, Verified 11/30/24 15:00) ANAPHYLAXIS acetaminophen (ACETAMINOPHEN) Allergy (Intermediate, Verified 11/30/24 15:00) ITCHY aspirin (From PERCODAN) Allergy (Intermediate, Verified 11/30/24 15:00) RASH ceftriaxone (CEFTRIAXONE) Allergy (Intermediate, Verified 11/30/24 15:00) RASH Cephalosporins (CEPHALOSPORINS) Allergy (Intermediate, Verified 11/30/24 15:00) Hives, Itching lorazepam (From ATIVAN) Allergy (Intermediate, Verified 11/30/24 15:00) HEADAHCE morphine (MORPHINE) Allergy (Intermediate, Verified 11/30/24 15:00) HIVES oxycodone (OXYCODONE) Allergy (Intermediate, Verified 11/30/24 15:00) ITCHY Penicillins (PENICILLINS) Allergy (Intermediate, Verified 11/30/24 15:00) SHORTNESS OF BREATH/ITCHING HPI Comments Details: The patient is a 48-year-old female presenting with acute on chronic severe lumbar back pain with radiculopathy. The patient has a history of lumbar fusion performed in 2023, and she reports a recent exacerbation of symptoms without inciting events. She describes the onset of severe pain and inability to stand or walk, which began two days ago. The patient has a history of cervical and lumbar degenerative disc disease, lumbar spinal stenosis, anxiety and depression, osteopenia and lupus, which may contribute to her current condition. She reports that her spine has been collapsing, and she has undergone multiple surgeries, including cervical and lumbar fusions in 2006 and last year. The patient has experienced neurological deficits, including loss of bowel and bladder control, weakness, gait and balance issues and numbness in her body. She has been unable to lift her legs without assistance and reports significant and debilitating pain and discomfort. - Onset: Pain began two days ago - Quality: Severe pain, described as feeling like the back is breaking, throbbing, stabbing, sharp, crushing, hurting, aching, heavy, tiring, sickening, fearful, and, killing and punishing, radiating, squeezing and tight - Location: Lumbar region with radiation to both legs - Exacerbating factors: Inability to stand or walk - Interference: Pain interferes with standing, walking, and bowel and bladder control - Affect: Pain significantly impacts mood and psychological wellbeing - Analgesia: No current pain medications due to allergies; Has tried tramadol, baclofen, Tylenol, TENS unit-no relief - Activities of Daily Living: Pain severely limits mobility and daily activities - Aberrant Drug Related Behaviors: None reported [facility] Medical History (Updated 11/30/24 @ 15:02 by RICA Negro) Seizure Family history of anesthesia complication Back pain DDD (degenerative disc disease), cervical DDD (degenerative disc disease), lumbar Depression Multiple drug allergies Seizure-like activity Kidney stone Ovarian cyst Chronic fatigue Asthma Osteopenia Lupus Surgical History Hx of lumbar discectomy Hx of hand surgery History of surgery Hx of cone biopsy of cervix Hx of lithotripsy History of lumbosacral spine surgery Hx of section Social History Household Members: Children Household Members Other:: daughter Housing: Apartment Are you a primary neonatal intensive care nurse to a significant other at home: No Do you presently have visiting nurse or other home services: No Comment: uses on occasion Patient Tobacco Use Status: Current everyday Tobacco user Tobacco use type: Cigarette Cigarette Packs Per Day: 0.25 Cigarettes Per Day: 2 Years Smoked: 20 e-Cigarette/Vaping Use: Never Used Second Hand Smoke Exposure: Yes Substance Use Type: Marijuana service: No Current occupational status: disabled Current occupation: rt handed Cognitive needs: No Hearing needs: No Vision needs: No Female Reproductive History Menstrual Age of Menarche: 14 Review of Systems Const Details: - Neurological: Reports inability to stand, lift legs, loss of bowel and bladder control, and numbness with positive saddle anesthesia on the right side. - Musculoskeletal: Reports severe lumbar pain with radiation to both legs with weakness and numbness All systems reviewed & are unremarkable except as noted in HPI and below Physical Exam Vital Signs: Last Vital Signs Pulse 102 H 11/30/24 14:37 Resp 16 11/30/24 14:37 BP 146/83 H 11/30/24 14:37 Pulse Ox 100 11/30/24 14:37 Oxygen Delivery Method Room Air 11/30/24 14:37 BMI result Body Mass Index 24.0 General: Appears afebrile. Moderate to severe distress due to back pain. Crying profusely due to pain. Asking to be hospitalized due to pain. Alert and oriented. Mood and affect appropriate as in severe pain. Follows and participates in conversation appropriately. Unable to participate in exam due to increased pain with movement and pain aggravation. Respiratory effort is unlabored. No cough. Arrived by wheelchair, unable to raise right leg, reports weakness. General: Yes no CVA tenderness Back/Spine/Pelvis Back: no CVA tenderness Cervical Spine: cervical muscular tenderness, Cervical spine scars present and No Cervical spine tenderness Thoracic/Lumbar Spine: thoracic and lumbar spine normal to inspection, Thoracic/lumbar spine scar(s), Lasegue's sign positive bilateral and diffuse, pain with thoraco-lumbar ROM, thoraco-lumbar ROM limited, No thoracic spinal tenderness and lumbar spinal tenderness at L3, at L4 and at L5 Sacroiliac joints: bilaterally tender to palpation Results Reviewed Results Reviewed: CT LUMBAR SPINE WITHOUT CONTRAST 11/27/24 TECHNIQUE: Axial imaging was performed from mid T11 through the lower sacrum coccygeal region without IV contrast. Coronal and sagittal reformatted images were generated from the original axial data set. ALARA: The examination used one or more of the following radiation dose reduction techniques: Automated exposure control, iterative reconstruction, and/or adjustment of mA and/or kV. INDICATION: Z98.1 - Arthrodesis status PRIOR: X-ray on November 03, 2024 FINDINGS: There were 5 [id number] lumbar segments. There are posterior pedicle screws at L4, L5, and S1. Rods connect L4 and L5. In the right spaces are evident at L4-5 and L5-S1. There is a benign simple renal cyst in the medial mid right kidney. Visualized soft tissues are otherwise unremarkable. T12-L1: Unremarkable L1-L2: Unremarkable L2-L3: There is moderate disc space during, there is vacuum phenomena anteriorly. There is anterior sclerosis and osteophytes. There is subtle retrolisthesis. There is broad-based disc bulge without spinal stenosis or foraminal narrowing. L3-L4: There is mild grade 1 retrolisthesis and mild disc space narrowing. There is broad-based disc bulge with ligamentum flavum hypertrophy and mild facet degeneration. There is no gross spinal stenosis. There is mild foraminal narrowing and left subarticular zone narrowing. L4-L5: There is interbody spacer with bone graft. There is mild subsidence of the spacer to L4 anteriorly. There is mixed attenuation of bone graft material. There appears to be bridging posterior centrally. There is persistent lucency between bone graft and vertebral bodies anterior centrally. There is mild foraminal narrowing L5-S1: There is interbody cage and bone graft material with broad integration of graft material into L5 and S1 vertebral bodies. IMPRESSION: L4-5 interbody fusion. There is degeneration of bone graft material posteriorly and incompletely integration anteriorly. L5-S1 interbody fusion with good integration of bridging bone across the interbody space. Degenerative disc disease at other levels, as described above. XR LUMBAR SPINE 4 OR MORE VIEWS 11/03/24 HISTORY: M54.50 - Low back pain, unspecified COMPARISON: Comparison is made with the prior examination dated 08/26/2024. FINDINGS: AP, and neutral, flexion, and extension lateral views of the lumbar spine are submitted. Osseous mineralization is normal. The patient is again noted to be status post posterior fusion of L4 and L5 with pedicle screws and spinal stabilization rods. Additional pedicle screws are noted at S1. An intervertebral spacer is seen at L4-5 and L5-S1. The vertebral bodies maintain normal height. There is slight retrolisthesis of L3 on L4 measuring 3 mm. This does not change with flexion or extension. There is degenerative disc disease at L2-3 with disc space narrowing and osteophyte formation. The visualized paraspinal soft tissues are unremarkable. IMPRESSION: Status post posterior fusion of L4-S1. Slight retrolisthesis of L3 on L4 without change with flexion or extension. MR LUMBAR SPINE WITHOUT CONTRAST 08/30/24 CLINICAL INFORMATION: Arthrodesis status. COMPARISON: July 30, 2023. TECHNIQUE: MRI of the lumbar spine was obtained using routine sequences without contrast. FINDINGS: Last rib-bearing vertebra labeled T12. Paramagnetic field distortion secondary to metallic hardware from L4 to S1. No bone marrow STIR signal abnormality. Disc desiccation, L2-3 and L3-4. Decreased intervertebral disc height at L2-3. Grade 1 retrolisthesis L2-3 and L3-4 levels. Arthrodesis L5-S1. Conus medullaris ends at pedicle of L1 with normal signal. There is no grouping or clumping of the neural elements of the filum terminalis. No thecal empty sign. T11-12: No disc herniation. No neuroforamina stenosis. T12-L1: No disc herniation. No neuroforamina stenosis. L1-2: Broad-based disc bulging. No compression upon neural elements. L2-3: Broad-based disc bulging. Facet joint and ligamentum flavum hypertrophy. Reduced AP diameter of the thecal sac and neuroforamina. L3-4: Broad-based disc bulging. Facet joint and ligamentum flavum hypertrophy. Central spinal canal and bilateral neuroforamina stenosis likely encroaching the neural elements. L4-5: Post surgical changes. No central spinal canal stenosis. Questionable left neuroforamina narrowing on a degenerative basis. L5-S1: Postsurgical changes. No central spinal canal stenosis. No neuroforamina stenosis. Fatty atrophy of the lower lumbar muscles from L4-5 to sacrum. No prevertebral compartment hematoma, mass or fluid collection. Hyperintense T2 cystic lesions in the kidneys, the largest measures 2 cm in the right kidney. IMPRESSION: Spondylosis and grade 1 retrolisthesis L3-4 and to a lesser extent L2-3 resulting in central spinal canal and bilateral neuroforamina stenosis at L3-4 likely encroaching the neural elements. Assessment & Plan Assessment & Plan (1) Lumbar radiculitis: Code(s): M54.16 - Radiculopathy, lumbar region Category: Medical (2) S/P spinal fusion: Code(s): Z98.1 - Arthrodesis status Category: Surgical (3) Lumbar spinal stenosis: Code(s): M48.061 - Spinal stenosis, lumbar region without neurogenic claudication Category: Medical Qualifiers: Neurogenic claudication status: with neurogenic claudication Qualified Code(s): M48.062 - Spinal stenosis, lumbar region with neurogenic claudication (4) Acute on chronic low back pain: Code(s): M54.50 - Low back pain, unspecified; G89.29 - Other chronic pain Category: Medical Plan The patient is advised to proceed to the emergency room for further evaluation due to the presence of red flags, including neurological deficits and severe, disabling pain, inability to walk for past 2 days. She is not able to tolerate back exam, arrived by wheelchair, unable to raise right leg, uses arms to lift up her right leg. Mild weakness present in left lower extremity. The emergency room team will coordinate with the patient's Neurosurgeon for further assessment and management. Patient will return to our office to discuss interventional treatments to assist her in managing chronic back pain with post laminectomy syndrome and radiculopathy pain components. Report called to [facility] to JESSICA Yeung, patient transferred to ER by wheelchair by family per their request. All questions and concerns have been answered and patient agreed with the treatment plan. Follow up for and sooner as needed. Patient was informed and verbally consented to the use of an ambient scribe for clinic note documentation during this visit. Coding Level of Care Code New Pt Level 4 (88191) Diagnoses Lumbar radiculitis M54.16 S/P spinal fusion Z98.1 Spinal stenosis of lumbar region with neurogenic claudication M48.062 Neurogenic claudication status: with neurogenic claudication Acute on chronic low back pain M54.50; G89.29
[2024-11-30 14:37] VITALS: BP 146/83; PULSE 102; RESP 16; O2SAT 100; BMI 24.0
== END 2024-11-30 14:50 | disposition home or self-care (01) ==
LOC: HO.PMC 14:33
PROVIDERS: PCP Physician Assistant; Visit Provider Nurse Practitioner Family
DX: M54.16 Radiculopathy, lumbar region (principal); Z98.1 Arthrodesis status; M48.062 Spinal stenosis, lumbar region with neurogenic claudication; M54.50 Low back pain, unspecified; G89.29 Other chronic pain
CPT/HCPCS: 99204

== ENCOUNTER → 2024-11-30 14:32 | Outpatient (BNVA) | payer MEDICARE, MEDICAID, SELFPAY | PROVIDERS: PCP Physician Assistant; Visit Provider Nurse Practitioner Family | DX: M54.50 Low back pain, unspecified (principal); G89.29 Other chronic pain; Z98.1 Arthrodesis status; M48.062 Spinal stenosis, lumbar region with neurogenic claudication; M54.16 Radiculopathy, lumbar region | CPT/HCPCS: 99202 ==

== ENCOUNTER 2024-11-30 14:55 | Emergency (ER) | payer MEDICARE, MEDICAID, SELFPAY ==
--- NOTE | ~2024-11-30 | MR_ITS ---
CLINICAL HISTORY: pain --- Additional Notes or Special Instructions: r o cauda equina MR lumbar spine without gadolinium Comparison: CT/SR - CT LUMBAR SPINE WO IV CON - 11/27/24 07:25 EDT Findings: Stable postsurgical changes related to L4-S1 posterior spinal fusion. No acute fracture or pathologic bone lesion. Cauda equina and conus medullaris within normal limits. Moderate spondylosis at L2-L3, L3-L4, L4-L5 levels with mild spinal canal narrowing and [id number] neural foraminal narrowings. Paraspinous musculature intact. IMPRESSION: No acute findings. No evidence of conus or cauda equina compression. Postsurgical changes related to L4-S1 posterior spinal fusion with intact alignment. Moderate spondylosis at L2-L3, L3-L4, and L4-L5 levels with mild spinal canal and [id number] neural foraminal narrowings. This document has been electronically signed by: Tamara Byrne MD on 11/30/2024 21:28:08
[2024-11-30 14:58] VITALS: BP 141/73; PULSE 110; RESP 18; TEMP 36.6; O2SAT 99; BMI 27.2
--- NOTE | 2024-11-30 15:01 | ED_ITS ---
HPI - Back Pain/Injury General Chief Complaint: Back Pain/Injury Stated Complaint: Back pain sent from Time Seen by Provider: 11/30/24 18:30 Source: patient, RN notes reviewed and old records reviewed Mode of arrival: wheelchair Limitations: no limitations History of Present Illness ED Provider: Ewelina HPI Narrative: 48-year-old female with past medical history significant for chronic back pain, spinal stenosis, degenerative disc disease, status post spinal fusion, lupus, asthma presents for evaluation of lower back pain. The patient reports that she has chronic back pain, she had a spinal fusion in the cervical and lumbar region with Pendkulwinder last year. She states for the last 2 weeks she has had worsening lower back pain. She states that last Friday, 3 days ago she woke up from sleep and ?I felt as though something popped in my back. ? She reports numbness and tingling in her groin pain She states that she is unable to urinate or have a bowel movement. She feels unsteady when she is standing. She reports she can not move her right leg She called the office of neurosurgeon and was some how sent to the pain management office who referred to the ER due to red flags for cauda equina syndrome Related Data Home Medications ?Medication ?Instructions ?Recorded ?Confirmed diphenhydramine HCl 25 mg tablet 25 mg PO TID PRN medi cation 10/28/23 11/22/24 Held on 11/12/23. allergies Instructions: Resume on 12/12/23. use prescribed medication mometasone 100 mcg/actuation HFA 1 puff inhalation TITA LY PRN sob 11/11/23 11/22/24 aerosol inhaler (Asmanex HFA) Previous Rx's ?Medication ?Instructions ?Recorded albuterol sulfate 90 mcg/actuation 1 inh inhalation QI D 30 days #8.5 05/17/24 aerosol inhaler (Ventolin HFA) grams acetaminophen 650 mg 650 mg PO Q12H 30 days #60 t abs 08/19/24 tablet,extended release hydroxychloroquine 100 mg tablet 100 mg PO BID 90 days #180 tabs 09/27/24 baclofen 10 mg tablet 10 mg PO TID PRN muscle spas m #30 11/03/24 tabs tramadol 50 mg tablet 50 mg PO BID pain 4 days #8 tabs 11/04/24 TENS unit electrodes #10 ea 11/22/24 TENS units (TENS 502 device) #1 ea 11/22/24 diazepam 5 mg tablet (Valium) 5 mg PO BID muscle spasm 7 days 11/22/24 #14 tabs wheelchair #1 ea 11/22/24 ketorolac 10 mg tablet 10 mg PO Q8H PRN pain #9 tab s 11/30/24 Allergies Allergy/AdvReac Type Severity Reaction Status Date / Time fentanyl (FENTANYL) Allergy Severe ANAPHYLAXIS Verified 11/30/24 15:00 hydromorphone (From DILAUDID) Allergy Severe HIVES Verified 11/30/24 15:00 prednisolone Allergy Severe Anaphylaxis Verified 11/30/24 15:00 prednisone (PREDNISONE) Allergy Severe ANAPHYLAXIS Verified 11/30/24 15:00 acetaminophen (ACETAMINOPHEN) Allergy Intermediate ITCHY Verified 11/30/24 15:00 aspirin (From PERCODAN) Allergy Intermediate RASH Verified 11/30/24 15:00 ceftriaxone (CEFTRIAXONE) Allergy Intermediate RASH Verified 11/30/24 15:00 Cephalosporins Allergy Intermediate Hives, Verified 11/30/24 15:00 (CEPHALOSPORINS) Itching lorazepam (From ATIVAN) Allergy Intermediate HEADAHCE Verified 11/30/24 15:00 morphine (MORPHINE) Allergy Intermediate HIVES Verified 11/30/24 15:00 oxycodone (OXYCODONE) Allergy Intermediate ITCHY Verified 11/30/24 15:00 Penicillins (PENICILLINS) Allergy Intermediate SHORTNESS Verified 11/30/24 15:00 OF BREATH/ITCHING Review of Systems 2 Constitutional: Constitutional: Denies body ache(s), Denies chills, Denies fever(s) and Denies headache(s) Eyes: Eyes: Denies blurry vision ENT: Denies headache(s) Cardiovascular: Cardiovascular: Denies chest pain and Denies dyspnea on exertion Respiratory: Respiratory: Denies cough and Denies dyspnea on exertion Gastrointestinal: Gastrointestinal: Denies abdominal pain, Denies nausea and Denies vomiting Genitourinary: Genitourinary: Reports urinary incontinence Musculoskeletal: Musculoskeletal: Reports back pain, Reports muscle weakness, Reports numbness, Reports radiating pain into limb, Reports stiffness and Reports tingling Integumentary/Breasts: Skin/Breast: Denies rash Neurologic: Denies headache(s), Reports numbness and Reports tingling PMFSH Past Medical History Medical History (Updated 11/30/24 @ 20:26 by Nestor Theodore) Seizure Family history of anesthesia complication Back pain DDD (degenerative disc disease), cervical DDD (degenerative disc disease), lumbar Depression Multiple drug allergies Seizure-like activity Kidney stone Ovarian cyst Chronic fatigue Asthma Osteopenia Lupus Surgical History Hx of lumbar discectomy Hx of hand surgery History of surgery Hx of cone biopsy of cervix Hx of lithotripsy History of lumbosacral spine surgery Hx of section Social History Social History Household Members: Children Household Members Other:: daughter Housing: Apartment Are you a primary career technical supervisor to a significant other at home: No Do you presently have visiting nurse or other home services: No Unable to assess alcohol history related to: Unknown Comment: uses on occasion Patient Tobacco Use Status: Current everyday Tobacco user Tobacco use type: Cigarette Cigarette Packs Per Day: 0.25 Cigarettes Per Day: 2 Years Smoked: 20 e-Cigarette/Vaping Use: Never Used Second Hand Smoke Exposure: Yes Substance Use Type: Marijuana Advance Directives: No Advance Directives Information Provided: No Do you have a plan to hurt others: No Plan service: No Current occupational status: disabled Current occupation: rt handed Cognitive needs: No Hearing needs: No Vision needs: No Physical Exam 2 Vital Signs: Vital Signs: Last Vital Signs Temp 98.0 F 11/30/24 22:25 Pulse 80 11/30/24 22:25 Resp 18 11/30/24 22:25 BP 105/56 L 11/30/24 22:25 Pulse Ox 97 11/30/24 22:25 O2 Del Method Room Air 11/30/24 22:25 BMI result Body Mass Index 27.2 Const: General: healthy appearing, comfortable, no acute distress, alert and awake Nutritional Appearance: well nourished Orientation/consciousness: p atient oriented x3 HEENT: Head: Yes normocephalic and Yes atraumatic Eyes: Eyelids: Yes eyelids normal Conjunctivae: conjunctivae normal S clerae: sclerae normal Corneas: corneas normal Pupils: Equal, round and reactive pupils present EOM: EOMs intact bilaterally Neck: Neck: Yes full ROM Resp: Effort & Inspection: normal respiratory effort, able to speak in complete sentences and not labored GI: Inspection: No distended Palpation (GI): Soft to palpation, not firm, nontender, no guarding and not rigid Skin: General skin exam: elasticity normal Neuro: Other: The patient is unable to raise her right lower extremity off the stretcher. She has 2+ strength to the left lower extremity. General: patient oriented x3 Cranial nerves: Yes Equal, round and reactive pupils present and Yes Bilaterally intact EOM present Cognition (Neuro): normal cognition Course Course Course Narrative: This is a Rapid Medical Examination (RME) performed by Zoraida Ventura PA-C in triage. Full HPI, ROS, assessment and treatment plan per primary provider in the Main ED. Hx: 48 yo F hx of cocaine use, asthma, depression, lupus here from pain management for eval of acute on chronic low back pain x2 days. reports inability to move her RLE or urinate/pass bowels x2 days. reports her back feels unstable . she is 1 yr s/p lumbar fusion w/ neuro surgery. saw paz leonard a few days ago, had CT lumbar spine which showed: CT lumbar spine wo IV con IMPRESSION: L4-5 interbody fusion. There is degeneration of bone graft material posteriorly and incompletely integration anteriorly. L5-S1 interbody fusion with good integration of bridging bone across the interbody space. Degenerative disc disease at other levels, as described above. She has been attempting to contact their office, was told to follow up with pain management. presented to pain management today where they felt given her symptoms, it was not appropriate for them to manage her. she was sent to the ED PE/vitals: Plan: labs, UA, bladder scan - will defer imaging to primary provider Reevaluation(s) Reevaluation #1: The patient's MRI does not show any acute findings or evidence of cauda equina syndrome. Her MRIs essentially unchanged when compared to the MRI from August. The patient is still continues to complain of back pain, weakness and difficulty standing and walking. I recommended a physical therapy and case management evaluation to which the patient declines because she states that there was no way she can go to a nursing facility. She would like to be discharged home with ketorolac for pain and she will call her neurosurgeon tomorrow for follow up. She reports an anaphylaxis allergy to prednisone and other steroids. Time: 22:46 Medications Administered Discontinued Medications Generic Name Dose Route Start Last Admin Trade Name Tanja PRN Reason Stop Dose Admin Baclofen 20 mg 11/30/24 21:50 11/30/24 22:10 Baclofen 20 Mg Tablet PO 11/30/24 21:51 20 mg ONCE ONE Administration Ketorolac Tromethamine 30 mg 11/30/24 17:23 11/30/24 17:35 Ketorolac Tromethamine 30 Mg/Ml Vial IM 11/30/24 17:24 30 mg ONCE ONE Administration Ketorolac Tromethamine 15 mg 11/30/24 19:09 11/30/24 19:52 Ketorolac Tromethamine 15 Mg/Ml Vial IVPUSH 11/30/24 19:10 15 mg ONCE ONE Administration Lidocaine 1 patch 11/30/24 17:23 11/30/24 17:35 Lidocaine 4 % Patch Adh..Patch TRANSDERMA 11/30/24 17:24 1 patch ONCE ONE Administration Protocol Medical Decision Making Medical Decision Making [facility] Narrative: 48-year-old female with a past medical history as above presents for evaluation of back pain, numbness, tingling, weakness. She was referred by the pain management clinic to rule out cauda equina syndrome. Her most recent MRI from August shows multiple levels of degenerative disc disease with spondylosis and grade 1 retrolisthesis of L3 and L4 as well as L2-L3 as a lesser extent. This results in central spinal canal and bilateral neural foraminal stenosis at L3- L4. The patient is not an IV drug abuser, no fever to suggest epidural abscess or diskitis. Given her concerning exam that she can not stand or lift her right leg with associated urinary incontinence we will order MRI to rule out cauda equina syndrome. Differential Diagnosis Differential Diagnoses: The differential diagnosis associated with the presentation includes Chronic back pain Disc herniation Sciatica Cauda equina syndrome Lab Data [facility] Lab Attestation statement: I reviewed the patient's lab results. Mild leukocytosis with a left shift of unclear significance. There is a mild anemia that has normocytic and consistent with the patient's recent labs from 2 weeks ago. Potassium is slightly low at 3.1, no other significant electrolyte abnormalities. 11/30/24 15:25 11/30/24 15:25 Labs: Lab Results 11/30/24 Range/Units 15:25 WBC 13.6 H (4.8-10.8) X10*3/uL RBC 4.07 L (4.20-5.50) X10*6/uL Hgb 11.4 L (12.0-16.0) g/dl Hct 35.0 L (37.0-47.0) % MCV 86.0 (80.0-98.0) fL MCH 28.0 (27.0-33.0) pg MCHC 32.6 (31.0-35.0) g/dl RDW 14.8 (11.0-16.0) % Plt Count 328 (160-400) X10*3/uL MPV 10.3 (9.4-12.3) fL Immature Gran % (Auto) 0.3 (0.0-0.4) % Neut % (Auto) 83.9 H (45-73) % Lymph % (Auto) 9.3 L (20-40) % Frederick % (Auto) 6.2 (2-11) % Eos % (Auto) 0.1 (0-4) % Baso % (Auto) 0.2 (0-2) % Lymph # (Auto) 1.3 (1.2-4.9) X10*3/uL Frederick # (Auto) 0.8 (0.1-1.2) X10*3/uL Eos # (Auto) 0.0 (0.0-0.4) X10*3/uL Baso # (Auto) 0.0 (0.0-0.2) X10*3/uL Abs Immat Gran (auto) 0.04 H (0.00-0.03) X10*3/uL Absolute Neuts (auto) 11.4 H (2.0-8.3) x10*3/uL Absolute Nucleated RBC 0.000 (0.0-0.012) X10*3/uL Nucleated RBC % (auto) 0.0 (0.0-0.2) /100WBC Sodium 140 (135-145) mmol/L Potassium 3.1 L (3.3-5.1) mmol/L Chloride 107 (96-108) mmol/L Carbon Dioxide 24 (22-29) mmol/L Anion Gap 12 (12-20) BUN 5 L (9-16) mg/dL Creatinine 0.73 (0.5-1.4) mg/dL Estim Creat Clear Calc 86.8 Estimated GFR > 60 Random Glucose 92 (60-115) mg/dL Calcium 9.5 (8.4-10.2) mg/dL Magnesium 2.0 (1.6-2.6) mg/dL Total Bilirubin 0.9 (0.0-1.0) mg/dL AST 13 (5-31) U/L ALT 9 (0-31) U/L Alkaline Phosphatase 105 (39-117) U/L Total Protein 8.0 (6.5-8.0) g/dL Albumin 4.3 (3.5-5.0) g/dL Discharge Plan Discharge Clinical Impression: Back pain Patient Disposition: Home, Self-Care Instructions: Acute Low Back Pain (ED) Additional Instructions: Your MRI does not show any acute changes or evidence of significant cord compression I do recommend that you follow up with your neurosurgeon, call tomorrow to schedule an appointment You may take ketorolac as needed for back pain. This medication can only be taken for a few days Return for new or worsening symptoms Prescriptions: New ketorolac 10 mg tablet 10 mg PO Q8H PRN (Reason: pain) Qty: 9 0RF Rx Instructions: maximum total duration of 5 days from all oral, intranasal, or parenteral formulations No Action albuterol sulfate [Ventolin HFA] 90 mcg/actuation HFA aerosol inhaler 1 inh inhalation QID 30 Days Qty: 8.5 3RF hydroxychloroquine 100 mg tablet 100 mg PO BID 90 Days Qty: 180 1RF tramadol 50 mg tablet 50 mg PO BID 4 Days Qty: 8 0RF diphenhydramine HCl 25 mg Tablet 25 mg PO TID PRN (Reason: medication allergies) Asmanex HFA 100 mcg/actuation HFA aerosol inhaler 1 puff inhalation DAILY PRN (Reason: sob) acetaminophen 650 mg tablet extended release 650 mg PO Q12H 30 Days Qty: 60 0RF (DME) TENS 502 Device See Rx Instructions .Route Qty: 1 0RF Rx Instructions: As directed (DME) TENS unit electrodes Pad See Rx Instructions .Route Qty: 10 0RF Rx Instructions: As directed (DME) wheelchair See Rx Instructions .Route .MEDSUPPLY Qty: 1 0RF Rx Instructions: As directed diazepam [Valium] 5 mg tablet 5 mg PO BID 7 Days Qty: 14 0RF baclofen 10 mg tablet 10 mg PO TID PRN (Reason: muscle spasm) Qty: 30 0RF Print Language: Qatari
[2024-11-30 15:30] LABS: MANUAL DIFF FLAG NO
[2024-11-30 15:32] LABS: Hematocrit 35.0 % (37.0-47.0); Hemoglobin 11.4 g/dl (12.0-16.0); Imm Gran Abs Auto 0.04 X10*3/uL (0.00-0.03); Imm Gran Pct Auto 0.3 % (0.0-0.4); Lymphocytes Absolute Auto 1.3 X10*3/uL (1.2-4.9); Mean Corpuscular HGB Conc 32.6 g/dl (31.0-35.0); Mean Corpuscular Hemoglobin 28.0 pg (27.0-33.0); Mean Corpuscular Volume 86.0 fL (80.0-98.0); NRBC Abs Auto 0.000 X10*3/uL (0.0-0.012); NRBC Pct Auto 0.0 /100WBC (0.0-0.2); Platelet Count 328 X10*3/uL (160-400); Red Blood Count 4.07 X10*6/uL (4.20-5.50); White Blood Count 13.6 X10*3/uL (4.8-10.8)
[2024-11-30 15:47] LABS: Alanine Aminotransferase 9 U/L (0-31); Albumin Level 4.3 g/dL (3.5-5.0); Alkaline Phosphatase 105 U/L (39-117); Anion Gap 12 (12-20); Aspartate Amino Transferase 13 U/L (5-31); Blood Urea Nitrogen 5 mg/dL (9-16); Calcium 9.5 mg/dL (8.4-10.2); Carbon Dioxide 24 mmol/L (22-29); Chloride 107 mmol/L (96-108); Creatinine Clr Calc Pharmacy 86.8; Estimated Glomerular Filt Rate > 60; Magnesium 2.0 mg/dL (1.6-2.6); Potassium 3.1 mmol/L (3.3-5.1); Sodium 140 mmol/L (135-145); Total Protein 8.0 g/dL (6.5-8.0)
[2024-11-30] MEDS: Lidocaine 4 % Patch ADH..PATCH 1 PATCH TRANSDERMA (17:35)
[2024-11-30 17:59] VITALS: BP 107/61; PULSE 78; RESP 20; TEMP 37; O2SAT 99
[2024-11-30 19:52] VITALS: BP 110/67; PULSE 75; RESP 22; O2SAT 99
[2024-11-30 22:25] VITALS: BP 105/56; PULSE 80; RESP 18; TEMP 36.7; O2SAT 97
[2024-11-30 23:06] VITALS: BP 105/56; PULSE 80; RESP 18; TEMP 36.7; O2SAT 97
== END 2024-11-30 23:07 | disposition home or self-care (01) ==
PROVIDERS: Physician Assistant Medical; Emergency Provider Emergency Medicine; PCP Physician Assistant
DX: M54.50 Low back pain, unspecified (principal); R10.2 Pelvic and perineal pain; R20.0 Anesthesia of skin; F17.210 Nicotine dependence, cigarettes, uncomplicated; Z79.899 Other long term (current) drug therapy
CPT/HCPCS: 36415; 51798; 72148; 80053; 83735; 85025; 96372; 96374; 99284; 99285; J1885

== ENCOUNTER → 2024-11-30 19:07 | Outpatient (BNV) | payer MEDICARE, MEDICAID, SELFPAY | PROVIDERS: Emergency Provider Emergency Medicine; PCP Physician Assistant; Visit Provider Student in an Organized Health Care Education/Training Program | DX: M47.816 Spondylosis without myelopathy or radiculopathy, lumbar region (principal); M43.27 Fusion of spine, lumbosacral region; M48.061 Spinal stenosis, lumbar region without neurogenic claudication | CPT/HCPCS: 72148 ==

== ENCOUNTER 2025-01-27 10:00 | Outpatient (AMB) | payer MEDICARE, MEDICAID, SELFPAY ==
[2025-01-27 10:37] VITALS: BP 110/62; PULSE 88; RESP 18; O2SAT 100; BMI 26.7
--- NOTE | 2025-01-27 10:37 | A.OFFPC_ITS ---
Vital Signs 01/27/25 10:37 Height 5 ft 2 in Weight 146 lb 4 oz BMI 26.7 BP 110/62 Blood Pressure Location Lt brachial Position Sitting Respiration 18 Pulse 88 Pulse Source Pulse Oximeter Temp Source Temporal Artery Scan Pulse Oximetry (%) 100 Oxygen Delivery Method Room Air Intake Visit Reasons: f/u low back pain Wellness Specialist Required: No Accompanied by: Self / Same As Patient Allergies fentanyl (FENTANYL) Allergy (Severe, Verified 01/27/25 10:38) ANAPHYLAXIS hydromorphone (From DILAUDID) Allergy (Severe, Verified 01/27/25 10:38) HIVES prednisolone Allergy (Severe, Verified 01/27/25 10:38) Anaphylaxis prednisone (PREDNISONE) Allergy (Severe, Verified 01/27/25 10:38) ANAPHYLAXIS acetaminophen (ACETAMINOPHEN) Allergy (Intermediate, Verified 01/27/25 10:38) ITCHY aspirin (From PERCODAN) Allergy (Intermediate, Verified 01/27/25 10:38) RASH ceftriaxone (CEFTRIAXONE) Allergy (Intermediate, Verified 01/27/25 10:38) RASH Cephalosporins (CEPHALOSPORINS) Allergy (Intermediate, Verified 01/27/25 10:38) Hives, Itching lorazepam (From ATIVAN) Allergy (Intermediate, Verified 01/27/25 10:38) HEADAHCE morphine (MORPHINE) Allergy (Intermediate, Verified 01/27/25 10:38) HIVES oxycodone (OXYCODONE) Allergy (Intermediate, Verified 01/27/25 10:38) ITCHY Penicillins (PENICILLINS) Allergy (Intermediate, Verified 01/27/25 10:38) SHORTNESS OF BREATH/ITCHING tramadol Adverse Reaction (Intermediate, Verified 01/27/25 11:06) Dizziness Tobacco use date assessed: 01/27/25 Dental Screening Dental Screen Date: 01/27/25 Did you have a dental visit in the last 12 months?: No Did you have a dental problem in the last 6 months where you did not have access to dental care?: No Was dental information given to patient?: No HPI f/u low back pain HPI Details Patient is a 49-year-old female here today for follow-up visit. Patient has a past medical history significant for major depressive disorder, lupus, fibromyalgia asthma spinal surgeries with hardware placement in 2018. Lower back pain: --> Ivvette reports severe pain and mob ility issues related to degenerative disc disease and possible lupus condition and/or her environment she lives in she feels that there is massive amount of mold exposure to which she brings in pictures of here today on her cell phone.. Reports she feels she is having focal seizures related to her illness from mold exposure. Seizure-like activity: The patient reports experiencing multiple focal seizures, with 27 episodes occurring since mold was exposed in the toure of the home a year ago. These are characterized by a feeling of blacking out, which the patient can sometimes mitigate by sitting down. A seizure last year led to a fall that caused a cervical spine fracture. An EEG performed in 2019 was reportedly within normal limits, though the patient stated the test itself provoked a seizure. 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 Lumbar stenosis: There is also a complaint of severe, progressive bone wasting in the hip and spine, which was reportedly noted by a surgeon. The patient reports severe pain that limits mobility, including bending over, and causes pain when lying down. A recent MRI showed degeneration in every spinal disc with bone spurs. The patient has a history of two spine surgeries and an S-shaped spine. She does have an upcoming appointment for density to eval for early onset of osteoporosis. For pain she has use acetaminophen with only little relief, has tried tramadol t kaitlynn caused her dizziness. She does report diazepam is helpful on a PRN basis. PLAN: Will supply patient with an alternative muscle relaxer tizanidine and refill her diazepam to use p.r.n.. Lupus: Patient continues on hydroxychloroquine for quite some time now. She has not seen a floor space allocator in quite some time and she is interested in reestablishing for further monitoring her lupus. [facility] Medical History Seizure-like activity Seizure Family history of anesthesia complication Back pain DDD (degenerative disc disease), cervical DDD (degenerative disc disease), lumbar Depression Multiple drug allergies Kidney stone Ovarian cyst Chronic fatigue Asthma Osteopenia Lupus Surgical History Hx of lumbar discectomy Hx of hand surgery History of surgery Hx of cone biopsy of cervix Hx of lithotripsy History of lumbosacral spine surgery Hx of section Social History Household Members: Children Household Members Other:: daughter Housing: Apartment Are you a primary director of primary care to a significant other at home: No Do you presently have visiting nurse or other home services: No Comment: uses on occasion Patient Tobacco Use Status: Current everyday Tobacco user Tobacco use type: Cigarette Cigarette Packs Per Day: 0.25 Cigarettes Per Day: 2 Years Smoked: 20 e-Cigarette/Vaping Use: Never Used Second Hand Smoke Exposure: Yes Substance Use Type: Marijuana service: No Current occupational status: disabled Current occupation: rt handed Cognitive needs: No Hearing needs: No Vision needs: No Female Reproductive History Menstrual Age of Menarche: 14 Questionnaire PHQ-9 Over the last 2 weeks, how often have you been bothered by any of the following problems? 1. Little interest or pleasure in doing things: not at all 2. Feeling down, depressed, or hopeless: not at all 3. Trouble falling or staying asleep, or sleeping too much: several days 4. Feeling tired or having little energy: not at all 5. Poor appetite or overeating: not at all 6. Feeling bad about yourself - or that you are a failure or have let yourself or your family down: not at all 7. Trouble concentrating on things, such as reading the newspaper or watching television: not at all 8. Moving or speaking so slowly that other people could have noticed. Or the opposite - being so fidgety or restless that you have been moving around a lot more than usual: not at all 9. Thoughts that you would be better off or of hurting yourself in some way: not at all Total score: 1 Depression Screening Interpretation: Negative Depression Screening Done: Yes 43007 - PHQ-9 Billing: Yes Source: Developed by Drs. Daniel Prado, Tamy Fields, John Rai and colleagues, with an educational morgan from [employer]. Thrive Questionnaire Date Thrive assessed: 01/27/25 I am a: Patient What is your living situation today?: I have a steady place to live Within the past 12 months, did the food you bought not last and you didn't have the money to get more?: Sometimes True Within the past 12 months, did you worry whether your food would run out before you got money to buy more?: I choose not to answer this question Do you have trouble paying for medicines?: No Do you have trouble getting transportation to medical appointments?: No Do you have trouble paying your heating and electricity bill?: No Do you have trouble taking care of your child, family member or friend?: No Do you have trouble with day-to-day activities such as bathing, preparing meals, shopping, managing finances, etc.?: No Are you currently unemployed and looking for a job?: No Are you interested in more education?: No Please select the resources that you would like help with: None Currently or been in a relationship where the following occur: No concerns reported THRIVE Score: 1 AUDIT C Alcohol Use Questionnaire (AUDIT-C) 1. How often do you have a drink containing alcohol?: Never 3. How often do you have six or more drinks on one occasion?: Never Total Score: 0 DILEEP-7 AMB Questionnaire DILEEP-7 Date DILEEP - 7 assessed: 08/19/24 Feeling nervous, anxious, or on edge: 0 = Not at all Not being able to stop or control worryin = Not at all Worrying too much about different things: 0 = Not at all Trouble relaxin = Not at all Being so restless that it is hard to sit still: 0 = Not at all Becoming easily annoyed or irritable: 0 = Not at all Feeling afraid as if something awful might happen: 0 = Not at all Total DILEEP-7 score (0-4 normal; 5-9 mild; 10-14 moderate; 15-21 severe): 0 Source: Developed by Drs. Daniel Prado, Tamy Fields, John Rai and colleagues, with an educational morgan from [employer]. DILEEP-7 Assessment Billing DILEEP-7 Assessment Tool: DILEEP-7 Assessment 69501 Review of Systems Const Denies headache(s) Eyes Denies loss of vision ENT Denies vertigo, Denies dizziness, Denies headache(s) and Denies sore throat Card Denies chest pain, Denies leg edema and Denies lightheadedness Resp Denies cough, Denies hemoptysis and Denies wheezing GI Denies abdominal pain, Denies melena, Denies constipation, Denies diarrhea and Denies vomiting Denies urinary frequency, Denies dysuria and Denies urinary urgency Musc Denies arthralgias, Denies joint swelling, Denies numbness and Denies tingling Neuro Denies Abnormal speech present, Denies behavioral changes, Denies vertigo, Denies dizziness, Denies headache(s), Denies loss of vision, Denies memory loss, Denies numbness and Denies tingling Psych Denies anxiety, Denies behavioral changes, Denies depression, Denies memory loss and Denies panic attacks Juan Manuel/Lymph Denies easy bleeding and Denies easy bruising Aller/Immun Denies wheezing Physical exam (Primary Care) Vital Signs: Last Vital Signs Pulse 88 01/27/25 10:37 Resp 18 01/27/25 10:37 BP 110/62 01/27/25 10:37 Pulse Ox 100 01/27/25 10:37 Oxygen Delivery Method Room Air 01/27/25 10:37 BMI result Body Mass Index 26.7 Tobacco/Smoking Status: Tobacco use Status Tobacco use date assessed 01/27/25 01/27/25 10:47 Patient Tobacco Use Status Current everyday Tobacco 01/27/25 10:47 Tobacco use type Cigarette 01/27/25 10:47 e-Cigarette/Vaping Use Never Used 01/27/25 10:47 PHQ-9: PHQ-9 Score PHQ-9: Total score 1 01/27/25 13:53 Depression Screening Interpretation: Negative Thrive Assessment: Date of Thrive Assessment Date Thrive assessed 01/27/25 01/27/25 10:47 Currently or been in a relationship where the following occur: No concerns reported Const General: healthy appearing, no acute distress, alert and awake Nutritional Appearance: well nourished Orientation/consciousness: oriented to person, oriented to place and oriented to time HENMT Ears: TM's normal bilaterally General nose exam: Normal nasal mucous membranes and turbinates present Eyes Conjunctivae: conjunctivae normal Sclerae: sclerae normal Pupils: Equal, round and reactive pupils present Neck Neck: Yes no lymphadenopathy and Yes no JVD Thyroid: Thyroid normal Carotids: no bruits Resp Effort & Inspection: normal respiratory effort and not tachypneic Auscultation: no crackles, no rales, no rhonchi and no wheezes Cardio Rate: regular rate Rhythm: regular rhythm Heart sounds: no murmurs and normal S1 and S2 GI Palpation (GI): Soft to palpation, nontender, no hepatomegaly and no splenomegaly Auscultation: normal bowel sounds Skin General skin exam: no rashes or lesions noted and dry skin Neuro General: oriented to person, oriented to place and oriented to time Cranial nerves: Yes Equal, round and reactive pupils present Speech: No Abnormal speech present Gait exam (Neuro): Normal gait present Motor exam (neuro): no tremor noted Extrem Right upper extremity: full ROM Left upper extremity: full ROM Right lower extremity: full ROM; no edema Left lower extremity: full ROM; no edema Psych Mental Status: mental status grossly normal Speech and movement: Normal speech and movement present Affect: normal affect Attitude: cooperative Thought process: Normal thought process present Coding Level of Care Code Est Pt Level 4 (48362) Diagnoses Spinal stenosis of lumbar region with neurogenic claudication M48.062 Neurogenic claudication status: with neurogenic claudication Mold suspected exposure Z77.120 Bilateral hip pain M25.551; M25.552 Seizure-like activity R56.9 Additional Codes DILEEP-7 Assessment Billing - DILEEP-7 Assessment Tool: DILEEP-7 Assessment 09812 ([id number]) PHQ-9 - 51815 - PHQ-9 Billing: Yes ([id number]) Assessment & Plan Assessment & Plan (1) Lumbar spinal stenosis: Code(s): M48.061 - Spinal stenosis, lumbar region without neurogenic claudication Category: Medical Qualifiers: Neurogenic claudication status: with neurogenic claudication Qualified Code(s): M48.062 - Spinal stenosis, lumbar region with neurogenic claudication Plan: Patient is status post multiple lower back surgeries The patient will undergo a bone density test to evaluate bone health and determine the extent of degenerative changes. Pain management options include the use of Valium for anxiety and pain relief. We did discuss the habit-forming nature of Valium and patient does agree and understand to use this medication on as needed basis for pain scales of 9-10. For pain management, a prescription for acetaminophen 650 mg will be provided, along with an alternative muscle relaxer as baclofen was ineffective. A small quantity of Valium will be prescribed for acute, severe pain attacks, as requested. Tramadol will be avoided due to a history of producing severe dizziness. (2) Mold suspected exposure: Code(s): Z77.120 - Contact with and (suspected) exposure to mold (toxic) Category: Social Hx Plan: Patient brings in cell phone pictures of black kind her kitchen seeing. She apparently has had seizure-like activities and she attributes this to mold exposure in her home. Will do some preliminary workup to eval for eosinophilia and Aspergillus. She is requesting a letter stating that she needs a new are stock sheets cleaner inspector apartment secondary to this mold exposure that has been causing seizure-like activity. (3) Bilateral hip pain: Code(s): M25.551 - Pain in right hip; M25.552 - Pain in left hip Category: Medical Plan: A repeat referral to rheumatology will also be placed for management of lupus. Diagnostic orders will include non-fasting labs to check blood counts, with attention to the white cell count, and X-rays of the hips. (4) Seizure-like activity: Comment: focal-follows with PCP Code(s): R56.9 - Unspecified convulsions Category: Medical Plan: Unclear if patient is actually having seizure-like activity, will start workup. She declines requests to get new testing with the EEG to eval for epileptic brain activity. Of note did have an EEG in 2022 which showed normal activity. To further evaluate the patient's symptoms, a referral will be placed to neurology for assessment of a possible seizure disorder. Orders: Orders Drug Screen Urine 01/27/25 R56.9 - Unspecified convulsions Aspergillus Ag EIA 01/27/25 Z77.120 - Contact with and (suspected) exposure to mold (toxic) XR hip LT 1V 01/27/25 M25.551 - Pain in right hip, M25.552 - Pain in left hip XR hip RT 1V 01/27/25 M25.551 - Pain in right hip, M25.552 - Pain in left hip Complete Blood Count no Diff 01/27/25 R56.9 - Unspecified convulsions Comprehensive Met. Panel 01/27/25 R56.9 - Unspecified convulsions Resp Allergy Profile Region I Today R05.9 - Cough, unspecified, Z77.120 - Contact with and (suspected) exposure to mold (toxic) IgE Antibody (Anti-IgE IgG) Today Z77.120 - Contact with and (suspected) exposure to mold (toxic) Parathyroid Hormone Intact 01/27/25 M51.36 - Other intervertebral disc degeneration, lumbar region Referrals Rheumatology Referral M32.9 - Systemic lupus erythematosus, unspecified Neurology Referral R56.9 - Unspecified convulsions Medications: New tizanidine 2 mg PO Q8H PRN 30 tabs 0RF muscle spasticity 10 days M51.36 - Other intervertebral disc degeneration, lumbar region Changed From diazepam (Valium) 5 mg PO BID 7 days 14 tabs 0RF muscle spasm Z98.1 - Arthrodesis status To diazepam (Valium) 5 mg PO DAILY 7 tabs 0RF muscle spasm 7 days Z98.1 - Arthrodesis status Refilled acetaminophen ER 650 mg PO Q12H 60 tabs 0RF 30 days M32.9 - Systemic lupus erythematosus, unspecified Discontinued baclofen Discontinued Reason: Doctor's Order 10 mg PO TID PRN 30 tabs 0RF muscle spasm tramadol Discontinued Reason: Doctor's Order 50 mg PO BID 4 days 8 tabs 0RF pain Z98.1 - Arthrodesis status
== END 2025-01-27 11:32 | disposition home or self-care (01) ==
LOC: HO.HMCH 10:02
PROVIDERS: PCP Physician Assistant; Visit Provider Physician Assistant
DX: M48.062 Spinal stenosis, lumbar region with neurogenic claudication (principal); Z77.120 Contact with and (suspected) exposure to mold (toxic); R56.9 Unspecified convulsions; M25.551 Pain in right hip; M25.552 Pain in left hip

== ENCOUNTER → 2025-01-27 10:00 | Outpatient (BNVA) | payer MEDICARE, MEDICAID, SELFPAY | PROVIDERS: PCP Physician Assistant; Visit Provider Physician Assistant | DX: M48.061 Spinal stenosis, lumbar region without neurogenic claudication (principal); R56.9 Unspecified convulsions; M25.551 Pain in right hip; M25.552 Pain in left hip; Z77.120 Contact with and (suspected) exposure to mold (toxic); R05.9 Cough, unspecified; Z13.31 Encounter for screening for depression | CPT/HCPCS: 96127; 99212 ==